=== PATIENT | female | born 1940 | race Two or more races ===

== ENCOUNTER 2025-02-19 16:41 | Inpatient (IN) | payer OTHER, MEDICAID, MEDICARE, SELFPAY ==
[2025-02-19] VITALS (11 sets, daily range): BP systolic 100–145; BP diastolic 54–96; PULSE 74–138; RESP 18–21; TEMP 36.9; O2SAT 95–100; BMI 22.9
--- NOTE | 2025-02-19 17:29 | PD.EDRME ---
Rapid Medical Screening Exam RME Arrival date/time: 02/19/25 16:41 84-year-old female presents emergency room with family member who reports the patient has ulcerations on her buttocks and complaining of pain Chief Complaint: General Adult/Misc Complain
--- NOTE | 2025-02-19 17:49 | EKG_ITS ---
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
--- NOTE | 2025-02-19 18:06 | XR_ITS ---
Examination: AP chest single view Technique one AP portable semiupright chest single view Exam date and time: February 19, 2025 1803 hours Comparison December 19, 2023 Indications: Weakness loss of breath this week. Findings: Significant pneumonia left base Mild enlargement cardiac contour Mild vascular congestion Prominent osteopenia Impression: Significant pneumonia left base
[2025-02-19 18:18] LABS: Basophils % (Auto) 0 % (0-2.5); Eosinophils # (Auto) 0.1 Thou/mm3 (0.0-0.5); Eosinophils % (Auto) 1 % (0-10); Hematocrit 40.9 % (36.0-46.0); Hemoglobin 13.9 g/dL (12.0-16.0); Immature Granulocytes % (Auto) 1 % (0-0); Immature Granulocytes Auto 0.09 Thou/mm3 (0.00-0.00); Lymphocytes # (Auto) 2.4 Thou/mm3 (1.0-4.8); Lymphocytes % (Auto) 18 % (10-50); Mean Corpuscular Volume 88 fL (80-100); Monocytes # (Auto) 0.7 Thou/mm3 (0.0-0.8); Monocytes % (Auto) 5 % (0-12); Neutrophils # (Auto) 10.2 Thou/mm3 (1.8-7.7); Neutrophils % (Auto) 76 % (37-80); Nucleated Red Blood Cell % 0 /100 WBC (0); Platelet Count 260 Thou/mm3 (140-440); RDW Standard Deviation 56.3 fL (36.4-46.3); Red Blood Count 4.63 Miln/mm3 (4.00-5.20); White Blood Count 13.4 Thou/mm3 (3.6-11.0)
[2025-02-19 18:35] LABS: Sed Rate (ESR) 20 mm/hr (0-30)
[2025-02-19 18:54] LABS: D-Dimer 3200 ng/mL (<600)
[2025-02-19 18:55] LABS: Lactate (Lactic Acid) 2.4 mMol/L (0.4-2.0)
[2025-02-19 18:59] LABS: Base Excess -2 (-3-3); HCO3 23 mEq/L (20-26); Inspired Oxygen, FIO2 21 %; O2 Saturation 95 % (91-98); PCO2 36 mmHg (32.0-48.0); PO2 72 mmHg (83-108); pH, Arterial 7.41 (7.35-7.45)
[2025-02-19 19:01] LABS: Allen Test Performed/OK; Puncture Site Right Radial
--- NOTE | 2025-02-19 19:03 | XR_ITS ---
Examination: CT abdomen with intravenous contrast CT pelvis with intravenous contrast 2-D coronal reconstructions 2-D sagittal reconstructions Date and time of exam:February 19, 2025 2126 hrs. Comparison December 12, 2019 Indications: Nonhealing sacral ulcer. This week CTDI: vol (mGy) 9.63 DLP: (mGycm) 177 Technique: Multiple axial sections of the abdomen and pelvis have been obtained. 64 slice high-resolution scanner used. 3 mm axial sections have been obtained, post intravenous injection 100 cc [id number] 2-D sagittal coronal reconstructions Low dose protocols, automated exposure control adjustment MA KV according to patient size Findings: Bibasilar pneumonia with bilateral moderate bilateral pleural effusions Moderate hepatomegaly Absent gallbladder Intrahepatic biliary tract dilatation Spleen is not enlarged Common bile duct 14 mm Aorta normal size No hydronephrosis No bowel obstruction Urinary bladder intact Right hip arthroplasty generates artifacts Soft tissue defect and infection posterior to the lower sacrum and coccyx 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
--- NOTE | 2025-02-19 19:03 | PD.EDSKIN ---
ED Skin Abcess FB-RME/HPI General Chief complaint: General Adult/Misc Complain Stated complaint: NOT EATING TODAY, HIVES [id number] ON BUTT Time Seen by Provider: 02/19/25 18:04 Arrival date/time: 02/19/25 16:41 RME / HPI RME / HPI narrative: 02/19/25 16:41 84-year-old female presents emergency room with family member who reports the patient has ulcerations on her buttocks and complaining of pain This section includes all my notes and documentations, including HPI, PE, and ED course. Joseph Minaya MD HPI: 84 y/o female with Hx of Seizures, Atrial Fibrillation, Hypertension, Gall Bladder Disease, Arthritis, Hypothyroidism, Anemia, Anxiety BIB daughter presents to ED c/o open wounds to the buttocks x 2.5 weeks. Daughter also reports no appetite since this morning. No other complaints. ROS: All negative except as documented in HPI. Physical Exam: General: Alert and oriented. In mild respiratory distress. Hypoxia noted. Eyes: Conjunctivae and lids clear. EOMI. PERRL. ENT: No nasal congestion. Neck: Supple. No carotid bruit. No JVD. Heart: Irregularly irregular (143 bpm). Lungs: Mild respiratory distress. Moderately decreased air movement with rales. Abdomen: Soft with equivocal epigastric tenderness. Normal bowel sounds. No distension. No rebound or guarding. Back: No CVA tenderness. Legs: No clubbing, cyanosis, edema. Skin: Warm and dry. Large sacral decubitus ulcers, varying in size and shape and stage. Neuro: Alert and oriented X 3. Cranial Nerves II-XII grossly intact. No peripheral motor deficits. I reviewed all diagnostic test results. My interpretation of the EKG is atrial fibrillation with RVR (143 bpm). My interpretation of the chest x-ray is significant pneumonia left base. My review of the chest angio CT report is negative for pulmonary artery emboli. Bibasilar pneumonia with moderate bilateral perihilar disease. My review of the abdomen/pelvis CT w/ contrast report is common bile duct enlarged 14 mm, recommend hepatobiliary sonography follow-up, soft tissue defect posterior to the lower sacrum and coccyx with cortical bone, destruction involving the coccygeal segments. My review of the head/brain CT w/o contrast report is NAD. My review of the abdomen US is gallstones with signs of cholecystitis. Blood tests remarkable for WBC 13.4, D-Dimer 3200. Covid/Influenza negative. At this point, diagnoses include Atrial fibrillation with RVR, Pneumonia, Bilateral pleural effusion, Acute respiratory failure with hypoxia, Sacral decubitus ulcer, UTI (urinary tract infection), Cholecystitis Treatment here included IVF, Cardizem bolus and drip, Rocephin, and Vancomycin. I discussed the case with our surgeon and our hospitalist. About the presentation and exam and diagnostics and treatments here. And need of further care in the hospital. Will accept the patient. Joseph Minaya MD Related Data Home Medications ?Medication ?Instructions ?Recorded ?Confirmed levothyroxine 100 mcg tablet 100 mcg PO QDAY #0 tabs 04/20/16 02/21/25 loratadine 10 mg tablet 10 mg PO QDAY 11/21/19 11/18/23 pantoprazole 40 mg tablet,delayed 40 mg PO QDAY 11/21/19 12/13/22 release budesonide-formoterol HFA 160 2 inh inhalation BID 12/13/22 12/13/22 mcg-4.5 mcg/actuation aerosol inhaler (Symbicort) buspirone 7.5 mg tablet 7.5 mg PO TID 12/13/22 02/21/25 cholecalciferol (vitamin D3) 125 125 mcg PO QDAY 12/13/22 12/13/22 mcg (5,000 unit) tablet (Vitamin D3) doxepin 25 mg capsule 25 mg PO HS 12/13/22 12/13/22 Held on 02/24/25. Instructions: Please hold until you follow your primary care provider hydrocodone 10 mg-acetaminophen 1 tab PO QID PRN Pain 12/13/22 11/18/23 325 mg tablet pravastatin 40 mg tablet 40 mg PO HS 12/13/22 02/22/25 sertraline 50 mg tablet 150 mg PO TID 12/13/22 02/22/25 apixaban 2.5 mg tablet (Eliquis) 2.5 mg PO BID 11/18/23 02/21/25 doxepin 10 mg capsule 10 mg PO HS 02/21/25 02/21/25 Held on 02/24/25. Instructions: Please hold until you follow your primary care provider ergocalciferol (vitamin D2) 1,250 1,250 mcg PO .once a week 02/21/25 02/21/25 mcg (50,000 unit) capsule trazodone 50 mg tablet 50 mg PO HS PRN sleep 02/21/25 02/22/25 calcium 600 mg (as 1 tab PO BID 02/22/25 02/22/25 carbonate)-vitamin D3 10 mcg (400 unit) tablet raloxifene 60 mg tablet 60 mg PO DAILY 02/22/25 02/22/25 Previous Rx's ?Medication ?Instructions ?Recorded ceftriaxone 2 gram solution for 2 g IV QDAY osteomyelitis 38 days 02/24/25 injection #10 ea doxycycline hyclate 100 mg capsule 100 mg PO BID osteomyelitis 39 02/24/25 days #78 caps mirtazapine 15 mg tablet 15 mg PO QDAY appetite stimulator 02/24/25 30 days #30 tabs Allergies Allergy/AdvReac Type Severity Reaction Status Date / Time Penicillins Allergy Severe Rash Verified 02/19/25 16:47 sulfamethoxazole Allergy Severe Rash Verified 02/19/25 16:47 trimethoprim Allergy Severe Rash Verified 02/19/25 16:47 carisoprodol AdvReac Severe Dizziness Verified 02/19/25 16:47 Review of Systems Review of Systems Systems Reviewed: All systems reviewed, normal except as documented Narrative Review of Systems: Refer to HPI above. Past Medical History Past Medical History NEUROLOGIC: Positive Seizures (long time ago 40 yrs ago one time- after posterior neck sx) CARDIAC: Positive Atrial Fibrillation and Hypertension GASTROINTESTINAL: Positive Gall Bladder Disease MUSCULOSKELETAL: Positive Arthritis ENDOCRINE: Positive Hypothyroidism HEMATOLOGIC: Positive Anemia PSYCHO/SOCIAL: Positive Anxiety OTHER HISTORY: Positive Anesthesia Reactions (one time they couldnt wake me up) Surgical History SURGICAL: Positive Angiogram, Abdominal Surgery and Hysterectomy Social History SMOKING STATUS: Never smoker SECOND HAND EXPOSURE: No SUBSTANCE USE: does not use ED Exam Narrative Physical exam: Refer to HPI above. Course Quality Measures none Orders Category Date Time Status Bedside COVID-19 Antigen Test NOW Care 02/19/25 18:05 Active Bedside Influenza A&B Antigen Test NOW Care 02/19/25 18:05 Completed COVID-19 Screening Questionnaire NOW Care 02/20/25 01:[address] Screening NOW Care 02/19/25 19:03 Active Decision to Admit X1 Care 02/20/25 01:30 Completed EKG (ED ONLY) *Do not use* NOW Care 02/19/25 17:49 Completed Saline [Insert IV] NOW Care 02/19/25 18:05 Active Straight [In and Out Catheter] X1 Care 02/19/25 18:05 Completed Consult to General Surgery Stat Cons 02/20/25 02:[address] abdomen pelvis w con Stat Exams 02/19/25 19:[address] angio chest Stat Exams 02/19/25 19:[address] head/brain wo con Stat Exams 02/19/25 19:04 Completed EKG (ED Only) Stat Exams 02/19/25 17:49 Draft US abdomen limited Stat Exams 02/19/25 22:06 Completed XR chest 1V portable Stat Exams 02/19/25 18:06 Completed ABG [Arterial Blood Gas] Stat Lab 02/19/25 18:52 Completed BNP [B-Type Natriuretic Peptide] Stat Lab 02/19/25 18:42 Completed Blood Culture (Lab) Stat Lab 02/19/25 17:50 Results CBC Stat Lab 02/19/25 17:50 Completed CRP [C-Reactive Protein] Stat Lab 02/19/25 18:42 Completed Comprehensive Metabolic Panel Stat Lab 02/19/25 18:42 Completed D-Dimer Stat Lab 02/19/25 17:41 Completed ESR [Sed Rate (ESR)] Stat Lab 02/19/25 17:50 Completed Free T4 (Free Thyroxine) Stat Lab 02/19/25 18:42 Completed Lactate (Lactic Acid) Stat Lab 02/19/25 18:42 Completed Lactic Acid, 3 HR Stat Lab 02/19/25 22:33 Completed Magnesium Stat Lab 02/19/25 18:42 Completed Procalcitonin Stat Lab 02/19/25 18:42 Completed Thyroid Stimulating Hormone Stat Lab 02/19/25 18:42 Completed Troponin I Stat Lab 02/19/25 18:42 Completed Urinalysis Stat Lab 02/20/25 01:00 Completed Urine Culture Stat Lab 02/20/25 01:00 Completed Azithromycin Inj [Zithromax Inj] 500 mg Med 02/19/25 20:39 Discontinued Sodium Chloride 0.9% 250 ml [Ns] 250 ml IV X1 Dextrose 5%-Water [D5w] 100 ml Med 02/19/25 18:05 Discontinued Diltiazem Inj [Cardizem Inj] 125 mg IV 5 mg/hr Diltiazem Inj [Cardizem Inj] Med 02/19/25 18:04 Discontinued 20 mg IV X1 ONE Magnesium Sulfate 2 GM Ivpb [Magnesium Sulfate Ivpb] Med 02/19/25 20:38 Discontinued 2 gm in 50 ml IV X1 Sodium Chloride 0.9% 1000 ml [Ns] 1,000 ml Med 02/19/25 19:05 Discontinued IV 999 mls/hr Vancomycin Inj 1,000 mg Med 02/19/25 19:02 Discontinued Sodium Chloride 0.9% 500 ml [Ns] 500 ml IV X1 cefTRIAXone [Rocephin] 1,000 mg Med 02/19/25 19:02 Discontinued SODIUM CHLORIDE 0.9% (Popper) [Ns 0.9% (P)] 50 ml IV X1 Vital Signs Vital signs: Vital Signs Temperature 98.4 F 02/19/25 17:44 Pulse Rate 138 H 02/19/25 17:44 Respiratory Rate 20 02/19/25 17:44 Blood Pressure 145/96 H 02/19/25 17:44 Pulse Oximetry (%) 95 02/19/25 17:44 Oxygen Delivery Method Room Air 02/19/25 17:44 Skin / Abscess / Foreign Body MDM Narrative MDM Narrative:: Scribe Attestation: Maddi Rodriguez am scribing for and in the presence of Dr. Minaya. Provider Notation: Although this document has been carefully reviewed, there may still be some phonetic and other typographical errors. These errors are purely grammatical due to imperfections in the software program and should not be construed in any way to compromise the substance of the patient's medical care during this visit. 84 y/o female with Hx of Seizures, Atrial Fibrillation, Hypertension, Gall Bladder Disease, Arthritis, Hypothyroidism, Anemia, Anxiety, Anesthesia Reactions BIB daughter presents to ED c/o skin irritation to the buttocks x 2.5 weeks. Daughter reports she noticed patient itching her buttocks this morning and noticed the irritation was much worse. Patient began taking Ammonium lactate for the irritation on 02/12/2025. Daughter also reports no appetite since this morning. Patient data External records reviewed:: [facility] previous records (Prior ED records reviewed. Patient was seen on 12/12/22 for CHF exacerbation.) Clinical information provided by:: family (Daughter) Social determinants that could affect healthcare access:: none Patient has the following chronic illnesses:: Seizures, Atrial Fibrillation, Hypertension, Gall Bladder Disease, Arthritis, Hypothyroidism, Anemia, Anxiety, Anesthesia Reactions How is presenting disease/condition affected by chronic disease/condition?: exacerbated by Evaluation data The following diagnostics were reviewed and interpreted by me:: lab results, radiology exam(s) and EKG tracing(s) Lab and/or radiology exams considered but not ordered:: None. Interpretation Summary: I reviewed all diagnostic test results. My interpretation of the EKG is atrial fibrillation with RVR (143 bpm). My interpretation of the chest x-ray is significant pneumonia left base. My review of the chest angio CT report is negative for pulmonary artery emboli. Bibasilar pneumonia with moderate bilateral perihilar disease. My review of the abdomen/pelvis CT w/ contrast report is common bile duct enlarged 14 mm, recommend hepatobiliary sonography follow-up, soft tissue defect posterior to the lower sacrum and coccyx with cortical bone, destruction involving the coccygeal segments. My review of the head/brain CT w/o contrast report is NAD. My review of the abdomen US is gallstones with signs of cholecystitis. Blood tests remarkable for WBC 13.4, D-Dimer 3200. Covid/Influenza negative. Medications / Prescriptions Medications or Prescriptions considered but not ordered:: None Medication administrations:: Medication Administration History Acetaminophen (Acetaminophen 325 Mg Tablet) 650 mg PO Q6H PRN PRN Reason: Fever >100.3 or pain 1-3 Stop: 03/22/25 02:05 Apixaban (Apixaban 2.5 Mg Tablet) 2.5 mg PO BID ON LICENSE OF [facility] Stop: 03/22/25 08:59 Last Admin: 02/23/25 20:45 Dose: 2.5 mg Documented By: Admin: 02/23/25 08:56 Dose: 2.5 mg Documented By: Admin: 02/22/25 21:03 Dose: 2.5 mg Documented By: Admin: 02/22/25 10:36 Dose: 2.5 mg Documented By: JRR Comments: all po meds given late pt.was @ MRI Admin: 02/21/25 21:51 Dose: 2.5 mg Documented By: Admin: 02/20/25 09:14 Dose: 2.5 mg Documented By: NAEEM Ascorbic Acid (Ascorbic Acid 250 Mg Tablet) 500 mg PO BID ALBINA Stop: 03/08/25 08:59 Last Admin: 02/24/25 09:12 Dose: Not Given Documented By: BRE Non-Admin Reason: NPO Admin: 02/23/25 20:46 Dose: 500 mg Documented By: Admin: 02/23/25 08:56 Dose: 500 mg Documented By: HEYDI Atorvastatin Calcium (Atorvastatin Calcium 20 Mg Tablet) 40 mg PO HS ALBINA Stop: 03/22/25 20:59 Last Admin: 02/23/25 20:45 Dose: 40 mg Documented By: Admin: 02/22/25 21:02 Dose: 40 mg Documented By: Admin: 02/21/25 21:51 Dose: 40 mg Documented By: Admin: 02/20/25 21:58 Dose: 40 mg Documented By: GIOVANNY Buspirone HCl (Buspirone Hcl 5 Mg Tablet) 7.5 mg PO TID ON LICENSE OF [facility] Stop: 03/22/25 05:59 Last Admin: 02/24/25 14:01 Dose: Not Given Documented By: BRE Non-Admin Reason: Not In Room Admin: 02/24/25 05:48 Dose: 7.5 mg Documented By: Admin: 02/23/25 21:20 Dose: 7.5 mg Documented By: Admin: 02/23/25 14:01 Dose: 7.5 mg Documented By: Admin: 02/23/25 05:15 Dose: 7.5 mg Documented By: Admin: 02/22/25 21:02 Dose: 7.5 mg Documented By: Admin: 02/22/25 15:44 Dose: Not Given Documented By: JRR Non-Admin Reason: Patient Asleep Admin: 02/22/25 05:09 Dose: 7.5 mg Documented By: Admin: 02/21/25 21:51 Dose: 7.5 mg Documented By: Admin: 02/21/25 14:01 Dose: 7.5 mg Documented By: Admin: 02/21/25 05:23 Dose: 7.5 mg Documented By: Admin: 02/20/25 21:58 Dose: 7.5 mg Documented By: Admin: 02/20/25 17:08 Dose: 7.5 mg Documented By: Admin: 02/20/25 09:15 Dose: 7.5 mg Documented By: NAEEM Collagenase (Collagenase Oint 30 Gm Tube) 0 gm TOP QDAY ALBINA Stop: 03/23/25 10:44 Last Admin: 02/24/25 08:55 Dose: 1 applicatio Documented By: Admin: 02/23/25 10:00 Dose: 1 applicatio Documented By: Admin: 02/22/25 10:39 Dose: 1 applicatio Documented By: Admin: 02/21/25 11:15 Dose: 30 gm Documented By: RON Digoxin (Digoxin 0.125 Mg Tablet) 0.125 mg PO QDAY ALBINA Stop: 03/25/25 08:59 Doxycycline Hyclate (Doxycycline 100 Mg Tablet) 100 mg PO BID ALBINA Stop: 03/03/25 20:59 Ceftriaxone Sodium/Dextrose (Rocephin/D5w 2gm) 2 gm in 50 mls @ 100 mls/hr IV HS ALBINA Stop: 02/27/25 20:59 Last Infusion: 02/24/25 13:50 Dose: Infused Documented By: Admin: 02/23/25 20:46 Dose: 100 mls/hr Documented By: Infusion: 02/22/25 21:33 Dose: Infused Documented By: Admin: 02/22/25 21:03 Dose: 100 mls/hr Documented By: Infusion: 02/21/25 22:22 Dose: Infused Documented By: Admin: 02/21/25 21:52 Dose: 100 mls/hr Documented By: GIOVANNY Levothyroxine Sodium (Levothyroxine Sodium 100 Mcg Tablet) 100 mcg PO ACBR ALBINA Stop: 03/22/25 05:59 Last Admin: 02/24/25 05:53 Dose: 100 mcg Documented By: Admin: 02/23/25 05:15 Dose: 100 mcg Documented By: Admin: 02/22/25 05:09 Dose: 100 mcg Documented By: Admin: 02/21/25 05:23 Dose: 100 mcg Documented By: Admin: 02/20/25 09:16 Dose: 100 mcg Documented By: NAEEM Magnesium Hydroxide (Milk Of Magnesia Susp 30 Ml Udc) 30 ml PO QDAY PRN; Protocol PRN Reason: CONSTIPATION Stop: 03/22/25 02:05 Melatonin (Melatonin 3 Mg Tablet) 3 mg PO HS PRN PRN Reason: anxiety Stop: 03/22/25 20:59 Last Admin: 02/23/25 21:20 Dose: 3 mg Documented By: Admin: 02/22/25 21:04 Dose: 3 mg Documented By: Admin: 02/21/25 21:51 Dose: 3 mg Documented By: GIOVANNY Mirtazapine (Mirtazapine 15 Mg Tablet) 15 mg PO QDAY ALBINA Stop: 03/26/25 08:59 Last Admin: 02/24/25 09:12 Dose: Not Given Documented By: BRE Non-Admin Reason: NPO Ondansetron HCl (Ondansetron Inj 2 Mg/Ml Inj 2 Ml) 4 mg IV Q6H PRN; Protocol PRN Reason: NAUSEA OR VOMITING Stop: 03/22/25 02:05 Oxycodone/Acetaminophen (Oxycodone/Apap 5/325 Tablet) 1 tab PO Q6H PRN PRN Reason: PAIN SCALE 4-6 (Moderate Stop: 02/25/25 02:05 Sennosides (Senna Tablet) 1 tab PO QDAY ON LICENSE OF [facility]; Protocol Stop: 03/24/25 08:59 Last Admin: 02/24/25 09:12 Dose: Not Given Documented By: BRE Non-Admin Reason: NPO Admin: 02/23/25 08:56 Dose: 1 tab Documented By: Admin: 02/22/25 10:37 Dose: 1 tab Documented By: JENNIFER Sertraline HCl (Sertraline Hcl 25 Mg Tablet) 150 mg PO QDAY ALBINA Stop: 03/22/25 08:59 Last Admin: 02/24/25 09:12 Dose: Not Given Documented By: BRE Non-Admin Reason: NPO Admin: 02/23/25 08:55 Dose: 150 mg Documented By: Admin: 02/22/25 10:37 Dose: 150 mg Documented By: Admin: 02/21/25 09:01 Dose: 150 mg Documented By: Admin: 02/20/25 09:14 Dose: 150 mg Documented By: NAEEM Zinc Sulfate (Zinc Sulfate 220 Mg Capsule) 220 mg PO QDAY ALBINA Stop: 03/08/25 08:59 Last Admin: 02/24/25 09:11 Dose: Not Given Documented By: BRE Non-Admin Reason: NPO Admin: 02/23/25 08:56 Dose: 220 mg Documented By: HEYDI Discontinued Medications Digoxin (Digoxin 0.125 Mg Tablet) 0.25 mg PO X1 ONE Stop: 02/21/25 12:01 Last Admin: 02/21/25 14:01 Dose: 0.25 mg Documented By: RON Digoxin (Digoxin 0.125 Mg Tablet) 0.25 mg PO Q6HR ON LICENSE OF [facility] Stop: 02/22/25 06:01 Last Admin: 02/22/25 10:38 Dose: 0.25 mg Documented By: Admin: 02/22/25 03:45 Dose: 0.25 mg Documented By: GIOVANNY Comments: 1st dose given at 2150, spoke with noc pharmacist Augustus, said to give 2nd in 6 hours Admin: 02/21/25 21:50 Dose: 0.25 mg Documented By: GIOVANNY Digoxin (Digoxin 0.125 Mg Tablet) 0.25 mg PO QDAY ON LICENSE OF [facility] Stop: 02/24/25 09:01 Diltiazem HCl (Diltiazem Inj 5 Mg/Ml Vial 5 Ml) 20 mg IV X1 ONE Stop: 02/19/25 18:05 Last Admin: 02/19/25 19:43 Dose: 20 mg Documented By: MATTIE Diltiazem HCl (Diltiazem 30 Mg Tablet) 60 mg PO TID ON LICENSE OF [facility] Stop: 03/22/25 15:14 Last Admin: 02/20/25 17:10 Dose: Not Given Documented By: LYNN Non-Admin Reason: Cancelled by Provider Diltiazem HCl (Diltiazem 30 Mg Tablet) 30 mg PO TID ON LICENSE OF [facility] Stop: 03/22/25 15:14 Last Admin: 02/21/25 05:29 Dose: Not Given Documented By: GIOVANNY Non-Admin Reason: Vital Signs Comments: Held by Admin: 02/20/25 20:59 Dose: Not Given Documented By: SS Non-Admin Reason: Vital Signs Comments: aware Heparin Sodium (Beef Lung) (Heparin Sod Lock Syr 100 Unit/Ml) Confirm Administered Dose 500 unit .ROUTE .STK-MED ONE Stop: 02/24/25 13:39 Last Admin: 02/24/25 14:25 Dose: Not Given Documented By: KAILEY Non-Admin Reason: Duplicate Medication on eMAR Heparin Sodium (Beef Lung) (Heparin Sod Lock Syr 100 Unit/Ml) 500 unit STFIELD X1 ONE Stop: 02/24/25 14:11 Last Admin: 02/24/25 14:12 Dose: 500 unit Documented By: KAILEY Diltiazem HCl 125 mg/ Dextrose 125 mls @ 5 mls/hr IV .Q24H ALBINA Stop: 03/21/25 18:04 Last Infusion: 02/20/25 15:24 Dose: Infused Documented By: Admin: 02/19/25 19:55 Dose: 5 mg/hr, 5 mls/hr Documented By: MATTIE Ceftriaxone Sodium 1,000 mg/ (Sodium Chloride) 50 mls @ 100 mls/hr IV X1 ONE Stop: 02/19/25 19:31 Last Infusion: 02/19/25 22:50 Dose: Infused Documented By: Admin: 02/19/25 22:20 Dose: 100 mls/hr Documented By: MATTIE Vancomycin HCl 1,000 mg/ (Sodium Chloride) 500 mls @ 150 mls/hr IV X1 ONE Stop: 02/19/25 22:21 Last Infusion: 02/19/25 23:30 Dose: Infused Documented By: Admin: 02/19/25 19:59 Dose: 150 mls/hr Documented By: MATTIE Sodium Chloride (Ns) 1,000 mls @ 999 mls/hr IV .Q1H1M ONE Stop: 02/19/25 20:05 Last Infusion: 02/19/25 23:00 Dose: Infused Documented By: Admin: 02/19/25 20:03 Dose: 999 mls/hr Documented By: MATTIE Magnesium Sulfate (Magnesium Sulfate Ivpb) 2 gm in 50 mls @ 25 mls/hr IV X1 ONE Stop: 02/19/25 22:37 Last Infusion: 02/20/25 00:30 Dose: Infused Documented By: Admin: 02/19/25 22:30 Dose: 25 mls/hr Documented By: MATTIE Azithromycin 500 mg/ Sodium (Chloride) 250 mls @ 250 mls/hr IV X1 ONE Stop: 02/19/25 21:38 Last Infusion: 02/20/25 00:00 Dose: Infused Documented By: Admin: 02/19/25 23:00 Dose: 250 mls/hr Documented By: MATTIE Ceftriaxone Sodium 2 gm/ (Sodium Chloride) 50 mls @ 100 mls/hr IV QDAY ALBINA Stop: 02/27/25 02:13 Last Admin: 02/20/25 03:56 Dose: Not Given Documented By: CVL Non-Admin Reason: Cancelled by Provider Ceftriaxone Sodium/Dextrose (Rocephin/D5w 1gm Iv Premix) 1 gm in 50 mls @ 100 mls/hr IV X1 ONE Stop: 02/20/25 02:45 Last Infusion: 02/20/25 03:56 Dose: Infused Documented By: Admin: 02/20/25 03:23 Dose: 100 mls/hr Documented By: MATTIE Ceftriaxone Sodium 2 gm/ (Sodium Chloride) 50 mls @ 100 mls/hr IV HS ALBINA Stop: 02/27/25 20:59 Last Admin: 02/20/25 20:45 Dose: 100 mls/hr Documented By: GIOVANNY Magnesium Sulfate (Magnesium Sulfate Ivpb) 4 gm in 50 mls @ 12.5 mls/hr IV X1 ONE Stop: 02/20/25 06:29 Last Infusion: 02/20/25 07:58 Dose: Infused Documented By: Admin: 02/20/25 03:00 Dose: 12.5 mls/hr Documented By: MATTIE Vancomycin/Sodium Chloride (Vancomycin/Ns 1 Gm Ivpb) 200 mls @ 120 mls/hr IV X1 ONE Stop: 02/20/25 11:39 Last Infusion: 02/20/25 11:10 Dose: Infused Documented By: Admin: 02/20/25 09:26 Dose: 120 mls/hr Documented By: NAEEM Vancomycin/Sodium Chloride (Vancomycin/Ns 1 Gm Ivpb) 200 mls @ 120 mls/hr IV X1 ONE Stop: 02/20/25 23:39 Last Admin: 02/20/25 22:50 Dose: 120 mls/hr Documented By: GIOVANNY Vancomycin/Sodium Chloride (Vancomycin/Ns 1 Gm Ivpb) 200 mls @ 120 mls/hr IV Q12H ALBINA; Protocol Stop: 02/28/25 09:59 Last Admin: 02/21/25 22:56 Dose: Not Given Documented By: GIOVANNY Non-Admin Reason: held per protocol, Vanco trough 25.0 Admin: 02/21/25 09:01 Dose: 120 mls/hr Documented By: RON Levothyroxine Sodium (Levothyroxine Sodium 100 Mcg Tablet) 100 mcg PO QDAY ALBINA Stop: 03/22/25 08:59 Lidocaine HCl (Lidocaine Inj Pf 1% 30 Ml Vial) Confirm Administered Dose [address] .[facility] ONE Stop: 02/21/25 11:10 Last Admin: 02/22/25 23:57 Dose: Not Given Documented By: WO Non-Admin Reason: Duplicate Medication on eMAR Lidocaine HCl (Lidocaine Inj Pf 1% 30 Ml Vial) Confirm Administered Dose 30 ml .ROUTE .STK-MED ONE Stop: 02/24/25 13:39 Last Admin: 02/24/25 14:25 Dose: Not Given Documented By: KAILEY Non-Admin Reason: Duplicate Medication on eMAR Lidocaine HCl (Lidocaine Inj Pf 1% 30 Ml Vial) 1 ml EPID X1 ONE Stop: 02/24/25 14:11 Last Admin: 02/24/25 14:12 Dose: 1 ml Documented By: KAILEY Comments: given by Joseph Miles Lidocaine HCl (Lidocaine Inj Pf 1% 30 Ml Vial) 1 ml INFL X1 ONE Stop: 02/24/25 14:11 Last Admin: 02/24/25 16:54 Dose: Not Given Documented By: BRE Non-Admin Reason: Discontinued Melatonin (Melatonin 3 Mg Tablet) 3 mg PO HS ALBINA Stop: 03/22/25 20:59 Non-Formulary Medication (Sertraline) 150 mg PO TID ALBINA Stop: 03/22/25 05:59 Pharmacy Consult (Vancomycin Pharmacy To Dose 1 Each Each) 1 each IV QDAY PRN PRN Reason: CONSULT Stop: 03/22/25 08:59 Potassium Chloride (Potassium Chloride 20 Meq Tabcr) 40 meq PO X1 ONE Stop: 02/20/25 02:31 Last Admin: 02/20/25 03:01 Dose: 40 meq Documented By: MATTIE Potassium Chloride (Potassium Chloride 10% 20 Meq/15 Ml Udc) 40 meq PO X1 ONE Stop: 02/22/25 09:52 Last Admin: 02/22/25 10:49 Dose: 40 meq Documented By: JENNIFER Pravastatin Sodium (Pravastatin Sodium 10 Mg Tablet) 40 mg PO HS ALBINA Stop: 03/22/25 20:59 Rivaroxaban (Rivaroxaban 10 Mg Tablet) 2.5 mg PO BID AL[place]INA Stop: 03/22/25 08:59 Sennosides (Senna Tablet) 1 tab PO QDAY PRN; Protocol PRN Reason: constipation Stop: 03/22/25 02:05 Sodium Chloride (Sodium Chloride Rt 10% 15 Ml Nebu) 5 ml INH X1 ONE Stop: 02/20/25 17:01 Last Admin: 02/23/25 00:01 Dose: Not Given Documented By: WO Non-Admin Reason: Medication missed by prior shift Treatment here included IVF, Cardizem bolus and drip, Rocephin, and Vancomycin. Consultations Consultation(s) initiated? (list below): Yes Consultation #1 (Physician, Specialty, Details): I discussed the case with our surgeon and our hospitalist. About the presentation and exam and diagnostics and treatments here. And need of further care in the hospital. Will accept the patient. Diagnosis Skin/Abscess Differential Diagnosis: abscess of skin or subcutaneous tissue, viral exanthem, dermatophytosis, urticaria, herpes zoster, allergic reaction to drug, cellulitis, eczema, insect bites, impetigo and contact dermatitis Most likely diagnosis given after review of the tests above:: Atrial fibrillation with RVR, Pneumonia, Bilateral pleural effusion, Acute respiratory failure with hypoxia, Sacral decubitus ulcer, UTI (urinary tract infection), Cholecystitis Admission Indicated Admission indicated?: indicated Explain why admission is indicated or not indicated:: I discussed the case with our surgeon and our hospitalist. About the presentation and exam and diagnostics and treatments here. And need of further care in the hospital. Will accept the patient. Admission Request Was there a request for admission?: Yes Admission Attestation Admission request attestation: Discussed case with Hospitalist service regarding admission. Discussed patients ED course, exam findings, labs, and radiology results. The Hospitalist [agrees] to accept the patient for admission. Disposition Plan Disposition Plan: Admit Discharge Plan Plan Patient Disposition: Admit Acute Care w/in Hospital Patient condition on transfer: Stable Problem List Clinical Impression: Atrial fibrillation with RVR, Pneumonia, Bilateral pleural effusion, Acute respiratory failure with hypoxia, Sacral decubitus ulcer, UTI (urinary tract infection), Cholecystitis
--- NOTE | 2025-02-19 19:04 | XR_ITS ---
Examination: CT brain head without contrast. 2-D sagittal coronal reconstructions Date and time of exam:February 19, 2025 2118 hrs. Indications: Altered mental status today CTDI: vol (mGy):63 DLP: (mGycm):1252 Technique: Multiple CT axial sections of the brain have been obtained, 5 mm slice thickness. Contrast has not been administered. 2-D sagittal, coronal reconstructions have been obtained Low dose protocols were performed. One or more of the following dose reduction techniques were used; automated exposure control, adjustment of the mA and/or KV according to patient size, use of iterative reconstruction technique. Findings: No significant ventricular enlargement. Intra-axial or extra-axial hemorrhage density is not seen. No mass effect or midline shift Basal cisterns are not remarkable. Fourth ventricle is midline. Cranial vault intact. Impression: Negative for acute hemorrhage, mass effect or midline shift Advise clinical correlation follow-up accordingly
--- NOTE | 2025-02-19 19:04 | XR_ITS ---
Examination: CTA chest with intravenous contrast 2-D reconstructions 3-D reconstructions, vascular Date and time of exam: February 19, 2025 2121 hrs. Indications: Onset chest pain shortness of breath today CTDI: vol (mGy) 9.73 DLP: (mGycm) 482 Technique: Multiple axial sections of the thorax have been obtained. 3 mm slice thickness, from below the hemidiaphragms to above the apices of the lungs. Mediastinal and lung density settings have been obtained. 2-D sagittal and coronal reconstructions. 3-D angiographic renderings, 3-D volume renderings, 3D post processing, vascular maximum intensity projections obtained. Contrast administered is 100 cc [id number]. Intravenous Low dose protocols were performed. One or more of the following dose reduction techniques were used; automated exposure control, adjustment of the mA and/or KV according to patient size, use of iterative reconstruction technique. Findings: No thoracic aortic aneurysm dilatation or dissection No pulmonary artery emboli Moderate enlargement left atrium mild enlargement left ventricle Pneumonia at the lung bases with moderate pleural effusions Kyphosis dorsal spine, severe osteopenia with chronic wedging thoracic and lumbar vertebral bodies Impression: Negative for pulmonary artery emboli Bibasilar pneumonia with moderate bilateral perihilar disease
[2025-02-19 19:14] LABS: B-Type Natriuretic Peptide 254 pg/mL (0-100)
[2025-02-19 19:23] LABS: Alanine Aminotransferase 54 U/L (10-49); Albumin/Globulin Ratio 0.9 (1.2-2.2); Alkaline Phosphatase 78 U/L (46-116); Anion Gap 10 (7-16); Aspartate Amino Transferase 121 U/L (0-34); BUN/Creatinine Ratio 18 Ratio (12-20); Bilirubin,Total 1.8 mg/dL (0.3-1.2); Blood Urea Nitrogen 11 mg/dL (9-23); C-Reactive Protein 6.3 mg/dL (0.0-0.9); Calcium 8.3 mg/dL (8.3-10.6); Calcium (Corrected) 9.1 mg/dL (8.5-10.1); Carbon Dioxide 23.1 mMol/L (20.0-31.0); Chloride 102 mMol/L (98-107); Creatinine (Component) 0.6 mg/dL (0.6-1.3); Estimated Creatinine Clearance 49.9 mL/min (>60); Free T4 (Free Thyroxine) 1.22 ng/dL (0.89-1.76); Globulin 3.2 gm/dL (2.3-3.5); Glucose 115 mg/dL (74-106); Magnesium 1.5 mg/dL (1.6-2.6); Osmolality,Calculated 270 (275-295); Potassium 3.7 mMol/L (3.4-5.1); Procalcitonin 0.91 ng/ml (0.0-0.49); Sodium 135 mMol/L (136-145); Thyroid Stimulating Hormone 10.97 uIU/mL (0.55-4.78); Total Protein 6.2 gm/dL (5.7-8.2); Troponin I < 0.020 ng/mL (0.0-0.045); eGFR > 60 See Note
[2025-02-19] MEDS: DILTIAZEM INJ 5 MG/ML VIAL 5 ML 20 MG IV (19:43)
[2025-02-19] MEDS: DILTIAZEM INJ 125 MG in DEXTROSE 5%-WATER 100 ML IV (19:55)
[2025-02-19] MEDS: Vancomycin Inj 1,000 MG in SODIUM CHLORIDE 0.9% 500 ML 500 ML 150 MG IV (19:59)
[2025-02-19] MEDS: SODIUM CHLORIDE 0.9% 1000 ML 1,000 ML 999 ML IV (20:03)
--- NOTE | 2025-02-19 21:08 | PC.NURSE ---
2107, Daughter Teagan took patient's wheelchair home at this time.
[2025-02-19 21:49] LABS: Reflex Lactate? Y
--- NOTE | 2025-02-19 22:06 | XR_ITS ---
Examination: Abdomen sonogram, Limited Date and time of exam: February 19, 2025 1157 hrs. Indications: Dizziness 15 days with abdominal pain, history sacral ulcer Technique: Real-time lozada scale transabdominal sonographic images of the upper abdomen obtained. Findings: Multiple gallstones Gallbladder wall 0.43 cm Common bile duct 0.9 cm Liver 13.5 cm Normal hepatopedal portal venous flow Patent IVC Impression Impression: Cholelithiasis, thickened gallbladder wall Common bile duct enlarged 0.9 cm, consider MRCP follow-up to exclude cholecystitis and to exclude stones in the common bile duct
[2025-02-19] MEDS: cefTRIAXone 1,000 MG in SODIUM CHLORIDE 0.9% (Popper) 50 ML 100 MG IV (22:20)
[2025-02-19] MEDS: Magnesium Sulfate 2 GM Ivpb 2 GM/50 ML BAG IV (22:30)
[2025-02-19 22:42] LABS: Lactic Acid, 3 HR 1.7 mMol/L (0.4-2.0)
[2025-02-19] MEDS: AZITHROMYCIN INJ 500 MG in SODIUM CHLORIDE 0.9% 250 ML 250 ML 250 MG IV (23:00)
[2025-02-20] VITALS (21 sets, daily range): BP systolic 56–124; BP diastolic 32–86; PULSE 64–123; RESP 15–24; TEMP 36.3–37.1; O2SAT 62–100
[2025-02-20 01:13] LABS: Collection Type, Urine Clean Catch; RBC,Urine 0 /hpf (0-3); WBC,Urine 0 /hpf (0-5)
--- NOTE | 2025-02-20 01:24 | PRELIM_ITS ---
Gallbladder ultrasound. February 19, 2025 2357 hours Clinical history: Abdominal pain. Comparison: None. Findings: The evaluation of the left lobe of the liver is limited due to bowel gas. The liver measures 13.5 cm and demonstrates slightly heterogeneous echotexture. The main portal vein is patent and demonstrates hepatopetal flow. Multiple echogenic foci are seen in the gallbladder fossa, possibly representing calculi in a contracted gallbladder with apparent wall thickening. There is no pericholecystic fluid. The common duct is mildly dilated measuring 9 mm. The pancreas is not clearly visualized due to bowel gas. There is a small right pleural effusion. Impression: 1. Cholelithiasis with gallbladder wall thickening, cholecystitis cannot be excluded. Mildly dilated common bile duct. The possibility of distal biliary obstruction cannot be excluded. Recommend clinical correlation and further evaluation with MRCP. 2. Right pleural effusion. Report Electronically Signed By: Gloria Hardy 02/20/2025 1:24:11 AM [EST]
[2025-02-20 01:35] LABS: Bacteria,Urine 4+; Bilirubin,Urine Negative (Negative); Blood,Urine Negative (Negative); Clarity,Urine Turbid (Clear/Hazy); Color,Urine Yellow (Lt Yel-Yel); Glucose, Urine Negative (Negative); Hyaline Casts,Urine < 1 /hpf (0-1); Ketones,Urine Negative (Negative); Leukocyte Esterase,Urine Negative (Negative); Nitrite,Urine Negative (Negative); Protein,Urine Trace (Neg - Trace); Specific Gravity,Urine 1.024 (1.001-1.035); Squamous Epithelial Cell,Urine 1 /hpf (0-5)
--- NOTE | 2025-02-20 02:20 | PD.RESHP ---
Documentation for date of: 02/20/25 [facility] History of Present Illness Chief complaint: general weakness History of present illness: The patient is 84-year-old female with a previous medical history of hypertension, pulmonary hypertension, A-fib on Eliquis, arthritis, hypothyroidism, anxiety, hyponatremia/SIADH, anemia, hyperlipidemia who was brought in due to sacral wound, general weakness and loss of appetite. Her daughter at the bedside, reports that the patient became bedridden approximately a year ago, after she was admitted for left hip fracture and underwent fixation of the left hip fracture. Daughter reports that approximately a month ago patient started to become more weak, not oriented in time and 2 weeks ago she noticed ' bumps' on her sacral area. She used lotion with no effect. Few days ago the patient lost her appetite and started refusing food. She denies chest pain, palpitations, abdominal pain, nausea, no vomiting, diarrhea, bloody stools, falls, traumas. Daughter reports that she is following up with photographic enlarger operator Dr. Witt for the pulmonary hypertension. She denies history of lung disease. Daughter reports that during the admission in 2023 and rehabilitation in SNF patient was using oxygen, but oxygen was discontinued because patient did not need it anymore. In the ED: Blood pressure 98/47, heart rate 118, saturating 97-100% on 3 L nasal cannula. Labs showed WBC count 13.4, D-dimer 3200, ABG showed pH of 7.41, pCO2 36, pO2 72 L. Sodium 135, potassium 3.7, chloride 102, carbon dioxide 23.1, BUN 11, creatinine 0.6, glucose 115, osmolality 270, lactic acid 2.4 down trended to 1.7, magnesium 1.5, T. bili 1.8, AST 121, ALT 54, alkaline phosphatase 78, C-reactive protein 6.3, BNP 254, TSH 10.97, Pro-Peter 0.91. UA showed 4+ bacteria, cultures were sent. EKG showed A-fib with RVR. Abdomen pelvis showed CBD 14 mm, soft tissue defect posterior to the lower sacrum and coccyx with cortical bone destruction involving the coccygeal segments. Chest CTA was negative for PE, showed bibasilar pneumonia. Head CT was negative for acute pathology. Abdominal ultrasound showed cholelithiasis with gallbladder wall thickening, mild to dilated CBD, recommended MRCP. Dr. Nguyen, general surgeon was consulted, agreed to consult, low suspicion for acute choledocholithiasis. Social history: does not smoke, drink alcohol Surgical history: s/p left hip ORIF Medications: Trazodone, Eliquis 2.5 mg BID, sertraline, pravastatin, raloxifene, calcium, doxepin. Patient is going to be admitted for sepsis 2/2 soft tissue infection and CAP. Review of Systems Review of Systems Systems Reviewed: All systems reviewed, normal except as documented Past Medical History Past Medical History NEUROLOGIC: Positive Seizures (long time ago 40 yrs ago one time- after posterior neck sx) CARDIAC: Positive Atrial Fibrillation and Hypertension GASTROINTESTINAL: Positive Gall Bladder Disease MUSCULOSKELETAL: Positive Arthritis ENDOCRINE: Positive Hypothyroidism HEMATOLOGIC: Positive Anemia PSYCHO/SOCIAL: Positive Anxiety OTHER HISTORY: Positive Anesthesia Reactions (one time they couldnt wake me up) Surgical History SURGICAL: Positive Angiogram, Abdominal Surgery and Hysterectomy Social History SMOKING STATUS: Never smoker SECOND HAND EXPOSURE: No SUBSTANCE USE: does not use Exam Vital Signs Temp Pulse Resp BP Pulse Ox O2 Del Method O2 Flow Rate 97.7 F 118 H 17 98/47 L 97 Nasal Cannula 3 02/20/25 00:33 02/20/25 00:33 02/20/25 00:33 02/20/25 00:33 02/20/25 00:33 02/20/25 00:33 02/20/25 00:33 Narrative Exam Physical Exam General: Awake and in no acute distress. Conversational and non-toxic appearing elderly female. HEENT: Normocephalic, atraumatic, mucous membranes moist. Heart: Irregular rate and rhythm, no murmurs. Lungs: Clear to auscultation with no wheezing or crackles. Abdomen: Soft, nondistended, nontender, positive bowel sounds. ?No guarding or rebound tenderness. Neurologic: Alert and oriented x2 (does not report the time), no gross neurological deficit, and patient able to move all 4 extremities. Extremities: No tibial edema. Skin: Unstageble sacral ulcer with granulations. Results: Labs 02/19/25 17:50 02/19/25 18:42 Labs: Short CBC 02/19/25 Range/Units 17:50 WBC 13.4 H (3.6-11.0) Thou/mm3 Hgb 13.9 (12.0-16.0) g/dL Hct 40.9 (36.0-46.0) % Plt Count 260 (140-440) Thou/mm3 BMP 02/19/25 18:42 Sodium 135 L Potassium 3.7 Chloride 102 Carbon Dioxide 23.1 BUN 11 Creatinine 0.6 Glucose 115 H Calcium 8.3 Cardiac Enzymes 02/19/25 Range/Units 18:42 Troponin I < 0.020 (0.0-0.045) ng/mL Liver Function 02/19/25 Range/Units 18:42 Total Bilirubin 1.8 H (0.3-1.2) mg/dL AST 121 H (0-34) U/L ALT 54 H (10-49) U/L Alkaline Phosphatase 78 (46-116) U/L Albumin 3.0 L (3.4-4.8) gm/dL Urine 02/20/25 Range/Units 01:00 Urine Color Yellow (Lt Yel-Yel) Urine Clarity Turbid A (Clear/Hazy) Urine pH 6.0 (5.0-7.0) Ur Specific [place] 1.024 (1.001-1.035) Urine Protein Trace (Neg - Trace) Urine Glucose (UA) Negative (Negative) ABG Interpretation ABG results: 02/19/25 18:52 ABG pH 7.41 ABG pCO2 36 ABG pO2 72 L ABG HCO3 23 ABG O2 Saturation 95 ABG Base Excess -2 Quality Measures Quality Measures VTE prophylaxis Advance care planning discussed with:: child Medications Home Medications and Allergies Home Medications ?Medication ?Instructions ?Recorded ?Confirmed ?Type levothyroxine 100 mcg tablet 100 mcg PO QDAY #0 tabs 04/20/16 11/18/23 History loratadine 10 mg tablet 10 mg PO QDAY 11/21/19 11/18/23 History pantoprazole 40 mg tablet,delayed 40 mg PO QDAY 11/21/19 12/13/22 History release budesonide-formoterol HFA 160 2 inh inhalation BID 12/13/22 12/13/22 History mcg-4.5 mcg/actuation aerosol inhaler (Symbicort) buspirone 7.5 mg tablet 7.5 mg PO TID 12/13/22 11/18/23 History cholecalciferol (vitamin D3) 125 125 mcg PO QDAY 12/13/22 12/13/22 History mcg (5,000 unit) tablet (Vitamin D3) clonidine HCl 0.2 mg tablet 0.2 mg PO BID 12/13/22 11/18/23 History Held on 11/25/23. Instructions: Follow-up with your PCP on when to restart. doxepin 25 mg capsule 25 mg PO HS 12/13/22 12/13/22 History hydrocodone 10 mg-acetaminophen 1 tab PO QID PRN Pain 12/13/22 11/18/23 History 325 mg tablet pravastatin 40 mg tablet 40 mg PO HS 12/13/22 11/18/23 History sertraline 50 mg tablet 150 mg PO TID 12/13/22 11/18/23 History apixaban 2.5 mg tablet (Eliquis) 2.5 mg PO BID 11/18/23 11/18/23 History Allergies Allergy/AdvReac Type Severity Reaction Status Date / Time Penicillins Allergy Severe Rash Verified 02/19/25 16:47 sulfamethoxazole Allergy Severe Rash Verified 02/19/25 16:47 trimethoprim Allergy Severe Rash Verified 02/19/25 16:47 carisoprodol AdvReac Severe Dizziness Verified 02/19/25 16:47 Visit Medications Acetaminophen (Acetaminophen 325 Mg Tablet) 650 mg PO Q6H PRN PRN Reason: Fever >100.3 or pain 1-3 Stop: 03/22/25 02:05 Diltiazem HCl 125 mg/ Dextrose 125 mls @ 5 mls/hr IV .Q24H ALBINA Stop: 03/21/25 18:04 Last Admin: 02/19/25 19:55 Dose: 5 mg/hr, 5 mls/hr Ceftriaxone Sodium/Dextrose (Rocephin/D5w 1gm Iv Premix) 50 mls @ 100 mls/hr IV X1 ONE Stop: 02/20/25 02:45 Ceftriaxone Sodium 2 gm/ (Sodium Chloride) 50 mls @ 100 mls/hr IV QDAY ALBINA Stop: 02/27/25 20:59 Magnesium Hydroxide (Milk Of Magnesia Susp 30 Ml Udc) 30 ml PO QDAY PRN; Protocol PRN Reason: CONSTIPATION Stop: 03/22/25 02:05 Ondansetron HCl (Ondansetron Inj 2 Mg/Ml Inj 2 Ml) 4 mg IV Q6H PRN; Protocol PRN Reason: NAUSEA OR VOMITING Stop: 03/22/25 02:05 Oxycodone/Acetaminophen (Oxycodone/Apap 5/325 Tablet) 1 tab PO Q6H PRN PRN Reason: PAIN SCALE 4-6 (Moderate Stop: 02/25/25 02:05 Pharmacy Consult (Vancomycin Pharmacy To Dose 1 Each Each) 1 each IV QDAY ALBINA Stop: 03/22/25 08:59 Rivaroxaban (Rivaroxaban 10 Mg Tablet) 2.5 mg PO BID ALBINA Stop: 03/22/25 08:59 Sennosides (Senna Tablet) 1 tab PO QDAY PRN; Protocol PRN Reason: constipation Stop: 03/22/25 02:05 Discontinued Medications Diltiazem HCl (Diltiazem Inj 5 Mg/Ml Vial 5 Ml) 20 mg IV X1 ONE Stop: 02/19/25 18:05 Last Admin: 02/19/25 19:43 Dose: 20 mg Ceftriaxone Sodium 1,000 mg/ (Sodium Chloride) 50 mls @ 100 mls/hr IV X1 ONE Stop: 02/19/25 19:31 Last Infusion: 02/19/25 22:50 Dose: Infused Vancomycin HCl 1,000 mg/ (Sodium Chloride) 500 mls @ 150 mls/hr IV X1 ONE Stop: 02/19/25 22:21 Last Infusion: 02/19/25 23:30 Dose: Infused Sodium Chloride (Ns) 1,000 mls @ 999 mls/hr IV .Q1H1M ONE Stop: 02/19/25 20:05 Last Infusion: 02/19/25 23:00 Dose: Infused Magnesium Sulfate (Magnesium Sulfate Ivpb) 2 gm in 50 mls @ 25 mls/hr IV X1 ONE Stop: 02/19/25 22:37 Last Admin: 02/19/25 22:30 Dose: 25 mls/hr Azithromycin 500 mg/ Sodium (Chloride) 250 mls @ 250 mls/hr IV X1 ONE Stop: 02/19/25 21:38 Last Admin: 02/19/25 23:00 Dose: 250 mls/hr Ceftriaxone Sodium 2 gm/ (Sodium Chloride) 50 mls @ 100 mls/hr IV QDAY ALBINA Stop: 02/27/25 02:13 Assessment & Plan Plan The patient is 84-year-old female with a previous medical history of hypertension, pulmonary hypertension, A-fib on Eliquis, arthritis, hypothyroidism, anxiety, hyponatremia/SIADH, anemia, hyperlipidemia who was brought in due to sacral wound, general weakness and loss of appetite. #Sepsis 2/2 #Infected sacral pressure ulcer #Suspected sacral osteomyelitis #General weakness Patient has been bedridden for prolonged time and family reports that she started to have bumps on the sacrum 2 weeks ago. Patient has received bolus of fluids in the ED. Imaging showed soft tissue changes and cortical destruction in the sacral area. Plan: - Ceftriaxone 2g qday 02/20/25-current - Vancomycin pharmacy to dose - Blood culture pending - Wound care referral - MRI pelvis wo contrast - pain control #Elevated T. bili #Elevated transaminases #Suspected cholelithiasis Overall, low suspicion for choleldolithiasis due to patient denies abdominal pain, afebrile, examination of the abdomen benign. Imaging was concerning for choledocholithiasis and cholecystitis. Dr. Nguyen, general surgeon was consulted and will be following. Plan: - contnue to monitor for signs of infection - monitor daily CMP, CBC - home pravastatin on hold due to elevated transaminases - MRCP ordered - general surgery consulted #CAP Patient denies cough, fever, chills. Imaging was concerning for pneumonia. Plan: - Rocephin IV - Oxygen as needed #Asymptomatic bacteriuria Patient denies dysuria, examination. UA was positive for bacteria 4+ Plan: - wait for cultures - rocephin 2g #Afib with RVR Most likely in the setting of infection. Plan: - diltiazem drip - replete electrolytes, keep Mg above 2 and K above 4 - resumed home Eliquis 2.5 mg BID #History of hypertension Plan: - BP is in the normal range, will hold BP management for now #Hypothyroidism Plan: - resumed home levothyroxine #Anxiety Plan: - resumed home buspirone and sertraline #History of pulmonary hypertension Patient denies history of lung disease and is following Dr. Neo Witt. Plan: - supplemental oxygen as needed Health maintenance: FEN: cardiac DVT prophylaxis: Eliquis 2.5 mg BID GI prophylaxis: none Dispo: telemetry CODE STATUS: DNR (per daughter, no resuscitation as witnessed by Dr. Castillo and Dr. Lantigua) Plan of care discussed with attending Dr. Castillo. Caryl Reis MD, PGY 1. Attending Provider Attestation/Addendum I have examined the patient, reviewed labs and imaging findings, discussed the case with the resident(s), and reviewed entered orders. I agree with the plan of care as outlined in this note, with these additional summaries/recommendations: Patient is a 84-year-old female who with a medical history of valvular heart disease, chronic atrial fibrillation, primary hypertension, hyperlipidemia, hypothyroidism, anxiety, osteoporosis, severe PAH, and ? Restrictive cardiomyopathy presents to [facility] emergency department with chief complaint of ulcerations and pain in her buttocks area. Patient and daughter seen at bedside in the emergency room. Patient diagnosed with atrial fibrillation with rapid ventricular response. Patient does have underlying chronic atrial fibrillation and likely went into RVR secondary to infectious etiology. Patient not on any rate or rhythm control medications at home. Patient started on diltiazem gtt which we will continue. If blood pressure becomes soft we will consider transitioning to amiodarone drip or cardioversion. Patient's photographic enlarger operator is Dr. Witt. Resume home Eliquis. Correct hypomagnesia and keep potassium greater than 4. Patient also found to have stage III sacral decubitus ulcer that appears infected. CT abdomen and pelvis showed soft tissue defect posterior to the lower sacrum and coccyx with cortical bone destruction involving the coccygeal segments. Start IV antibiotics. Blood cultures taken in the ED and follow-up results when available. Order MRI pelvis to rule out osteomyelitis. If positive we will consult infectious disease. CRP 6.3.Consult wound care and frequent pressure redistribution. CTA of chest and chest x-ray significant for pneumonia although does not appear to have productive cough at this time. Nonetheless patient will be covered with IV antibiotics. Patient also noted to have enlarged common bile duct 14 mm with hyperbilirubinemia and mild transaminitis. Abdominal ultrasound showed cholelithiasis with gallbladder wall thickening, dilated CBD, and recommends MRCP. Case discussed with general surgery and has agreed to consult. Given that patient has a completely benign abdominal exam low suspicion for cholecystitis or choledocholithiasis at this time. Although given abnormal lab values and imaging findings we will proceed with ordering MRCP. Lactic acidosis on admission resolved. 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 Follow-up outpatient with cardiology although if A-fib RVR does not improve we will consider inpatient cardiology consultation. Continue home levothyroxine. Patient and daughter updated on the plan and in agreement. All questions answered to satisfaction. Please see residents note for additional details and management. Dr. Jonathan MD
[2025-02-20] MEDS: Magnesium Sulfate 4 GM Ivpb 4 GM/50 ML BAG IV (03:00)
[2025-02-20] MEDS: POTASSIUM CHLORIDE 20 mEq TABCR 40 MEQ PO (03:01)
[2025-02-20] MEDS: cefTRIAXone/D5w 1gm IV premix 1 GM/50 ML BAG IV (03:23)
[2025-02-20 05:10] LABS: Basophils % (Auto) 0 % (0-2.5); Eosinophils % (Auto) 0 % (0-10); Hematocrit 31.1 % (36.0-46.0); Hemoglobin 10.6 g/dL (12.0-16.0); Immature Granulocytes % (Auto) 0 % (0-0); Immature Granulocytes Auto 0.05 Thou/mm3 (0.00-0.00); Lymphocytes # (Auto) 1.4 Thou/mm3 (1.0-4.8); Lymphocytes % (Auto) 10 % (10-50); Mean Corpuscular HGB Conc 34.1 g/dl (31.0-37.0); Mean Corpuscular Hemoglobin 30.1 pg (25.0-35.0); Mean Corpuscular Volume 88 fL (80-100); Monocytes # (Auto) 0.8 Thou/mm3 (0.0-0.8); Monocytes % (Auto) 6 % (0-12); Neutrophils % (Auto) 83 % (37-80); Nucleated Red Blood Cell % 0 /100 WBC (0); Platelet Count 282 Thou/mm3 (140-440); RDW Standard Deviation 56.4 fL (36.4-46.3); Red Blood Count 3.52 Miln/mm3 (4.00-5.20); White Blood Count 13.3 Thou/mm3 (3.6-11.0)
[2025-02-20 06:25] LABS: Alanine Aminotransferase 45 U/L (10-49); Albumin, Serum 2.5 gm/dL (3.4-4.8); Alkaline Phosphatase 63 U/L (46-116); Anion Gap 8 (7-16); Aspartate Amino Transferase 95 U/L (0-34); BUN/Creatinine Ratio 23 Ratio (12-20); Bilirubin,Total 0.8 mg/dL (0.3-1.2); Blood Urea Nitrogen 9 mg/dL (9-23); Calcium 7.6 mg/dL (8.3-10.6); Calcium (Corrected) 8.8 mg/dL (8.5-10.1); Carbon Dioxide 23.4 mMol/L (20.0-31.0); Chloride 106 mMol/L (98-107); Creatinine (Component) 0.4 mg/dL (0.6-1.3); Estimated Creatinine Clearance 74.9 mL/min (>60); Globulin 2.6 gm/dL (2.3-3.5); Glucose 83 mg/dL (74-106); Magnesium 2.4 mg/dL (1.6-2.6); Osmolality,Calculated 271 (275-295); Potassium 3.6 mMol/L (3.4-5.1); Sodium 137 mMol/L (136-145); Total Protein 5.1 gm/dL (5.7-8.2); eGFR > 60 See Note
--- NOTE | 2025-02-20 07:02 | PC.NURSE ---
Pt sleeping most of the evening. Family at bedside.
--- NOTE | 2025-02-20 08:43 | PC.NURSE ---
Contacted pharmacy to send patients morning meds as they are over 2 hours late. Pharmacy to deliver
[2025-02-20] MEDS: SERTRALINE HCL 25 MG TABLET 150 MG PO (09:14)
[2025-02-20] MEDS: APIXABAN 2.5 MG TABLET PO (09:14)
[2025-02-20] MEDS: BusPIRone HCL 5 MG TABLET 7.5 MG PO ×3 (09:15→21:58)
[2025-02-20] MEDS: LEVOTHYROXINE SODIUM 100 MCG TABLET PO (09:16)
[2025-02-20] MEDS: VANCOMYCIN/NS 1 GM IVPB 200 ML IV ×2 (09:26→22:50)
--- NOTE | 2025-02-20 10:45 | CHAP ---
Patient was prayed for by the Spiritual Care Volunteer. (Volunteer was in the hospital from 09:13-10:45).
--- NOTE | 2025-02-20 11:55 | PD.SURCONS ---
HPI Consult details Consult date: 02/20/25 Reason for consultation narrative: The patient was seen on consultation because of gallstones and mildly elevated liver enzymes History of present illness: History of present illness revealed that the patient is not able to give any history. Some information was obtained in bits and pieces from the who accompanied her. Apparently the patient has been sick and bedridden for couple of years and she has developed decubitus ulcer over the back. He does not seem to come planing of any abdominal pain but she was brought because of increasing weakness and inability to eat. She has had no fever or chills. She has multiple medical problem including hypertension and pulmonary hypertension and hypothyroidism and chronic bedsore. She also has atrial fibrillation with rapid ventricular rate and is on Eliquis. Past Medical History Past Medical History NEUROLOGIC: Positive Seizures (long time ago 40 yrs ago one time- after posterior neck sx); Negative Neurological Disorders CARDIAC: Positive Cardiac Disorders, Atrial Fibrillation and Hypertension; Negative Congestive Heart Failure RESPIRATORY: Positive Respiratory Disorders and Asthma; Negative Chronic Obstructive Pulmonary Disease (COPD) GASTROINTESTINAL: Positive Gall Bladder Disease GENITOURINARY: Negative Renal Disease MUSCULOSKELETAL: Positive Arthritis ENDOCRINE: Positive Hypothyroidism; Negative Diabetes Mellitus Type 1 or Diabetes Mellitus Type 2 HEMATOLOGIC: Positive Anemia; Negative Sickle Cell Disease PSYCHO/SOCIAL: Positive Anxiety OTHER HISTORY: Positive Anesthesia Reactions (one time they couldnt wake me up); Negative Blood Transfusions Surgical History SURGICAL: Positive Angiogram, Abdominal Surgery and Hysterectomy Social History SMOKING STATUS: Never smoker SECOND HAND EXPOSURE: No SUBSTANCE USE: does not use Meds Home Medications and Allergies Home Medications ?Medication ?Instructions ?Recorded ?Confirmed ?Type levothyroxine 100 mcg tablet 100 mcg PO QDAY #0 tabs 04/20/16 11/18/23 History loratadine 10 mg tablet 10 mg PO QDAY 11/21/19 11/18/23 History pantoprazole 40 mg tablet,delayed 40 mg PO QDAY 11/21/19 12/13/22 History release budesonide-formoterol HFA 160 2 inh inhalation BID 12/13/22 12/13/22 History mcg-4.5 mcg/actuation aerosol inhaler (Symbicort) buspirone 7.5 mg tablet 7.5 mg PO TID 12/13/22 11/18/23 History cholecalciferol (vitamin D3) 125 125 mcg PO QDAY 12/13/22 12/13/22 History mcg (5,000 unit) tablet (Vitamin D3) clonidine HCl 0.2 mg tablet 0.2 mg PO BID 12/13/22 11/18/23 History Held on 11/25/23. Instructions: Follow-up with your PCP on when to restart. doxepin 25 mg capsule 25 mg PO HS 12/13/22 12/13/22 History hydrocodone 10 mg-acetaminophen 1 tab PO QID PRN Pain 12/13/22 11/18/23 History 325 mg tablet pravastatin 40 mg tablet 40 mg PO HS 12/13/22 11/18/23 History sertraline 50 mg tablet 150 mg PO TID 12/13/22 11/18/23 History apixaban 2.5 mg tablet (Eliquis) 2.5 mg PO BID 11/18/23 11/18/23 History Allergies Allergy/AdvReac Type Severity Reaction Status Date / Time Penicillins Allergy Severe Rash Verified 02/19/25 16:47 sulfamethoxazole Allergy Severe Rash Verified 02/19/25 16:47 trimethoprim Allergy Severe Rash Verified 02/19/25 16:47 carisoprodol AdvReac Severe Dizziness Verified 02/19/25 16:47 Exam Vital Signs Temp Pulse Resp BP Pulse Ox O2 Del Method O2 Flow Rate 98.8 F 70 20 92/65 100 Nasal Cannula 2 02/20/25 10:48 02/20/25 10:48 02/20/25 10:48 02/20/25 10:48 02/20/25 10:48 02/20/25 10:48 02/20/25 10:48 Narrative Exam Physical examination revealed a thin built 84-year-old female who is about 4 foot 10 inches tall weighing only 110 pounds with BMI of 23. Her vital signs are normal Constitutional Constitutional: mild distress Routine Chest/Breast/Axilla Exam Comments: Unable to examine the chest because of electrodes Routine Abdominal Exam Comments: Abdomen showed that she is slightly tender on the right side both upper and lower. There are no signs of peritoneal irritation or positive Chilel sign. Routine Rectal Exam Comments: Could not be done because patient was difficult to move Routine Back/Spine/Pelvis Exam Comments: Examination of the back revealed a large sacral decubitus ulcer measuring 8 to 10 cm in diameter and has necrotic greenish tissue. Routine Neurological Exam Comments: Unable to perform neurological examination Results Results: Laboratory Laboratory Narrative: Laboratory results show mild leukocytosis with 13,500. Apparently proteins and albumin are very low obviously due to chronic malnutrition. Results: Imaging Imaging narrative: Ultrasound of the abdomen showed gallstones with thickening of the gallbladder wall CT scan of the abdomen and pelvis showed some osteomyelitis of the sacral area Patient also had a CTA which showed no pulmonary embolism but bilateral pneumonia with effusion. Chest x-ray showed left lobe pneumonia Assessment & Plan Additional Assessment Additional comments: Impression: Patient has multiple medical problems for which she came to the emergency room. The gallstones may be an incidental finding but that is not the priority in this patient at this time. She does not require MRCP or any further workup for the biliary disease. I am not even sure if the patient is going to be a candidate for surgery especially with atrial fibrillation and anticoagulation. Plan Plan: No indication for surgery at this time for gallstones. I am not sure if the gallstones are symptomatic. We can just leave the gallstones alone unless there is compelling need for drainage or surgery. Her other problem needs to be assessed. Patient may require debridement of the sacral decubitus ulcer. Thank you very much
--- NOTE | 2025-02-20 13:07 | ESPR_ITS ---
Documentation for date of: 02/20/25 Subjective Subjective Interval history: Overnight admission. Patient is an 84-year-old female with a past medical history of hypertension, hyperlipidemia, atrial fibrillation (Eliquis) who previously was on carvedilol 6.25 twice daily but discontinued November 2023, Pulmonary HTN, hypothyroidism, SARAH, anemia of chronic disease who presented to the emergency room with a chief complaint of decreased appetite and hives on butt . Patient is mostly bed bound for the past two years secondary to generalized weakness. Per daughter who was in the room, had a small sacral ulcer for the past two years that appeared healed but over the past 11 days, ulcer has increased in size after applying moisturizing location. Per patient's daughter, patient began to have decreased appetite despite being on Mirtazipine at home. Denied any sick contacts. Denied any chest pain or shortness of breath. Cholelithiasis noted on imaging, patient denied right upper quadrant abdominal pain. Chilel's sign negative. General surgery consulted, no plan for cholestectomy and no plan for surgical debriment of sacral region, medical management at this point. Patient was started on Diltiazem drip on arrival as patient was in afib w/ rvr. First back completed and patient was transitioned to Diltizem 30 mg TID oral. Exam Vital Signs Temp Pulse Resp BP Pulse Ox O2 Del Method O2 Flow Rate 98.8 F 70 20 92/65 100 Nasal Cannula 2 02/20/25 10:48 02/20/25 10:48 02/20/25 10:48 02/20/25 10:48 02/20/25 10:48 02/20/25 10:48 02/20/25 10:48 Narrative Exam General Appearance: Alert & Oriented X2, well-nourished female who is lying in bed in mild discomfort when patient was rolled over to appreciate ulcer. Ulcer is foul smelling and appears to a purulent discharge. HEENT: Skull symmetrical and atraumatic. Conjunctivae pin and moist. Pupils equal, round, reactive to light and accommodation (PERRL). External ear without lesion or discharge. Straight, nares patient, mucosa pink, no discharge. No thyroid nodule appreciated. No cervical lymphadenopathy. Cardio: Normal Rate and Rhythm with S1 and S2 heart sounds. No murmurs or extra heart sounds auscultated. No bruits on carotid auscultation. No peripheral edema or cyanosis. Lungs: Symmetric with good expansion. Chest and back non-tender. Breath sounds vesicular with rhonchi Abdomen: Non-tender, Non-distended, Normal Reactive Bowel Sounds, Negative Chilel's sign. Neuro: Yes Alert, cooperative, oriented to person, place, and time. Speech clear. CN grossly intact. Upper motor strength 5/5 and Lower motor strength 5/5. Sensation intact. Objective Labs 02/21/25 05:37 02/21/25 05:37 Labs: Laboratory Results - last 24 hr 02/19/25 02/19/25 02/19/25 17:41 17:50 18:42 WBC 13.4 H RBC 4.63 Hgb 13.9 Hct 40.9 MCV 88 MCH 30.0 MCHC 34.0 RDW Std Deviation 56.3 H Plt Count 260 Neut % (Auto) 76 Lymph % (Auto) 18 [place] % (Auto) 5 Eos % (Auto) 1 Baso % (Auto) 0 Neut # (Auto) 10.2 H Lymph # (Auto) 2.4 [place] # (Auto) 0.7 Eos # (Auto) 0.1 Baso # (Auto) 0.0 Immature Gran # (Auto) 0.09 H Absolute Nucleated RBC 0.00 Immature Gran % 1 H Nucleated RBC % 0 ESR 20 D-Dimer 3200 H Puncture Site ABG pH ABG pCO2 ABG pO2 ABG HCO3 ABG O2 Saturation ABG Base Excess FiO2 Sodium 135 L Potassium 3.7 Chloride 102 Carbon Dioxide 23.1 Anion Gap 10 BUN 11 Creatinine 0.6 Estim Creat Clear Calc 49.9 L eGFR > 60 BUN/Creatinine Ratio 18 Glucose 115 H Calculated Osmolality 270 L Lactic Acid 2.4 H Calcium 8.3 Corrected Calcium 9.1 Magnesium 1.5 L Total Bilirubin 1.8 H AST 121 H ALT 54 H Alkaline Phosphatase 78 Troponin I < 0.020 C-Reactive Prot, Quant 6.3 H B-Natriuretic Peptide 254 H Total Protein 6.2 Albumin 3.0 L Globulin 3.2 Albumin/Globulin Ratio 0.9 L Procalcitonin 0.91 H TSH 10.97 H Free T4 1.22 Ur Collection Type Urine Color Urine Clarity Urine pH Ur Specific [place] Urine Protein Urine Glucose (UA) Urine Ketones Urine Blood Urine Nitrite Urine Bilirubin Urine Urobilinogen (Auto) Ur Leukocyte Esterase Urine RBC Urine WBC Ur Squamous Epith Cells Urine Bacteria Hyaline Casts 02/19/25 02/19/25 02/20/25 18:52 22:33 01:00 WBC RBC Hgb Hct MCV MCH MCHC RDW Std Deviation Plt Count Neut % (Auto) Lymph % (Auto) [place] % (Auto) Eos % (Auto) Baso % (Auto) Neut # (Auto) Lymph # (Auto) [place] # (Auto) Eos # (Auto) Baso # (Auto) Immature Gran # (Auto) Absolute Nucleated RBC Immature Gran % Nucleated RBC % ESR D-Dimer Puncture Site Right Radial ABG pH 7.41 ABG pCO2 36 ABG pO2 72 L ABG HCO3 23 ABG O2 Saturation 95 ABG Base Excess -2 FiO2 21 Sodium Potassium Chloride Carbon Dioxide Anion Gap BUN Creatinine Estim Creat Clear Calc eGFR BUN/Creatinine Ratio Glucose Calculated Osmolality Lactic Acid 1.7 Calcium Corrected Calcium Magnesium Total Bilirubin AST ALT Alkaline Phosphatase Troponin I C-Reactive Prot, Quant B-Natriuretic Peptide Total Protein Albumin Globulin Albumin/Globulin Ratio Procalcitonin TSH Free T4 Ur Collection Type Clean Catch Urine Color Yellow Urine Clarity Turbid A Urine pH 6.0 Ur Specific [place] 1.024 Urine Protein Trace Urine Glucose (UA) Negative Urine Ketones Negative Urine Blood Negative Urine Nitrite Negative Urine Bilirubin Negative Urine Urobilinogen (Auto) 6.0 Ur Leukocyte Esterase Negative Urine RBC 0 Urine WBC 0 Ur Squamous Epith Cells 1 Urine Bacteria 4+ A Hyaline Casts < 1 02/20/25 04:50 WBC 13.3 H RBC 3.52 L Hgb 10.6 L D Hct 31.1 L MCV 88 MCH 30.1 MCHC 34.1 RDW Std Deviation 56.4 H Plt Count 282 Neut % (Auto) 83 H Lymph % (Auto) 10 [place] % (Auto) 6 Eos % (Auto) 0 Baso % (Auto) 0 Neut # (Auto) 11.0 H Lymph # (Auto) 1.4 [place] # (Auto) 0.8 Eos # (Auto) 0.0 Baso # (Auto) 0.0 Immature Gran # (Auto) 0.05 H Absolute Nucleated RBC 0.00 Immature Gran % 0 Nucleated RBC % 0 ESR D-Dimer Puncture Site ABG pH ABG pCO2 ABG pO2 ABG HCO3 ABG O2 Saturation ABG Base Excess FiO2 Sodium 137 Potassium 3.6 Chloride 106 Carbon Dioxide 23.4 Anion Gap 8 BUN 9 Creatinine 0.4 L Estim Creat Clear Calc 74.9 eGFR > 60 BUN/Creatinine Ratio 23 H Glucose 83 Calculated Osmolality 271 L Lactic Acid Calcium 7.6 L Corrected Calcium 8.8 Magnesium 2.4 Total Bilirubin 0.8 D AST 95 H ALT 45 Alkaline Phosphatase 63 Troponin I C-Reactive Prot, Quant B-Natriuretic Peptide Total Protein 5.1 L Albumin 2.5 L D Globulin 2.6 Albumin/Globulin Ratio 1.0 L Procalcitonin TSH Free T4 Ur Collection Type Urine Color Urine Clarity Urine pH Ur Specific [place] Urine Protein Urine Glucose (UA) Urine Ketones Urine Blood Urine Nitrite Urine Bilirubin Urine Urobilinogen (Auto) Ur Leukocyte Esterase Urine RBC Urine WBC Ur Squamous Epith Cells Urine Bacteria Hyaline Casts ABG Interpretation ABG results: 02/19/25 18:52 ABG pH 7.41 ABG pCO2 36 ABG pO2 72 L ABG HCO3 23 ABG O2 Saturation 95 ABG Base Excess -2 Quality Measures Quality Measures VTE prophylaxis Advance care planning discussed with:: patient Assessment & Plan Assessment Current Active Medications: Generic Name Dose Route Start Last Admin Trade Name Freq PRN Reason Stop Dose Admin Acetaminophen 650 mg 02/20/25 02:06 Acetaminophen 325 Mg Tablet PO 03/22/25 02:05 Q6H PRN Fever >100.3 or pain 1-3 Apixaban 2.5 mg 02/20/25 09:00 02/20/25 09:14 Apixaban 2.5 Mg Tablet PO 03/22/25 08:59 2.5 mg BID ALBINA Administration Buspirone HCl 7.5 mg 02/20/25 06:00 02/20/25 09:15 Buspirone Hcl 5 Mg Tablet PO 03/22/25 05:59 7.5 mg TID ALBINA Administration Diltiazem HCl 125 mg/ Dextrose 125 mls @ 5 mls/hr 02/19/25 18:05 02/19/25 19:55 IV 03/21/25 18:04 5 mg/hr .Q24H ALBINA 5 mls/hr Administration 5 MG/HR Ceftriaxone Sodium 2 gm/ 50 mls @ 100 mls/hr 02/20/25 21:00 Sodium Chloride IV 02/27/25 20:59 HS ALBINA Levothyroxine Sodium 100 mcg 02/20/25 06:00 02/20/25 09:16 Levothyroxine Sodium 100 Mcg Tablet PO 03/22/25 05:59 100 mcg ACBR ALBINA Administration Magnesium Hydroxide 30 ml 02/20/25 02:06 Milk Of Magnesia Susp 30 Ml Udc PO 03/22/25 02:05 QDAY PRN CONSTIPATION Protocol Melatonin 3 mg 02/20/25 21:00 Melatonin 3 Mg Tablet PO 03/22/25 20:59 HS ALBINA Ondansetron HCl 4 mg 02/20/25 02:06 Ondansetron Inj 2 Mg/Ml Inj 2 Ml IV 03/22/25 02:05 Q6H PRN NAUSEA OR VOMITING Protocol Oxycodone/Acetaminophen 1 tab 02/20/25 02:06 Oxycodone/Apap 5/325 Tablet PO 02/25/25 02:05 Q6H PRN PAIN SCALE 4-6 (Moderate Pharmacy Consult 1 each 02/20/25 09:00 Vancomycin Pharmacy To Dose 1 Each Each IV 03/22/25 08:59 QDAY PRN CONSULT Sennosides 1 tab 02/20/25 02:06 Senna Tablet PO 03/22/25 02:05 QDAY PRN constipation Protocol Sertraline HCl 150 mg 02/20/25 09:00 02/20/25 09:14 Sertraline Hcl 25 Mg Tablet PO 03/22/25 08:59 150 mg QDAY ALBINA Administration Plan Patient is an 84-year-old female with a past medical history of hypertension, hyperlipidemia, atrial fibrillation (Eliquis), Pulmonary HTN, hypothyroidism, SARAH, and anemia of chornic disease who was admitted on for sepsis secondary to soft tissue infection and CAP. #Sepsis secondary CAP w/ bilateral pleural effusion #Acute hypoxic respiratory failure #CAP, likely GPC #Bibasilar pneumonia w/ bilateral moderate bilateral pleural effusion Patient presented with acute hypoxic respiratory failure, requiring oxygen as patient spO2 as low as 62% requiring addition oxygen support in the ER on nasal canual of 4 liters. Patient was noted to have bibasilar pneumoina with bilateral moderate plerual effusion. Likely secondary to community acquired pneumonia GPC. Previous imagining did not show pleural effusion. Meeting SIRs criteria: tachycardia, tachypenia, elevated WBC count w/ source of infection. Lactic acid 2.4-->1.7 DDx: Aspiration can not be rule out. Viral less likely as flu and covid negative vs Less likely malignancy as family denied any weight loss but patient has had decreased appetite over the last 3 days. CTA chest negative w/ elevated D-Dimers likely secondary to infectious process. SOFA 2 Plan -Ceftriaxone 2 gm Qday (covering osteo as well) 02/19/2025 -Sputum Cultures -Cocci pending -IR guided, Thoracentesis w/ pleural analysis and cytology -PT/PTT AM -Ensure protein -consider small bolus of 250 if BP drops #Soft Tissue Infection, Sacral & Coccyx Ulcer #Cortical bone destruction, likely osteomyelitis Previous history of sacral ulcer but no history of osteomyelitis previously noted, given cortical bone destruction on CT, follow up with MRI pelvis. Surgery consulted, medical management recommended at this time. Plan: -MRI pelvis pending -Ceftriaxone 2 grams and Vancomycin 02/19/2025 -Wound care -consider wound culture, but likely will be poor sample given location -General Surgery Consulted, Dr. Nguyen, appreciate recommendations #Atrial Fibrillation, w/ rvr #Atrial Fibrillation Patient has a past medical history of atrial Fibrillation rate controlled previously on Carvedilol which was D/C last year and remained on Eliquis 2.5 BID. Atrial fibrillation saba triggered by pneumonia versus soft tissue infection Plan -Dilt drip d/c -Ditiazem 60 mg TID (hold if systolic BP <100) -Holding Eliquis for possible thoracentesis #Restrictive Cardiomyopathy #Severe Pulmonary HTN #History Hypertension Patient has a past medical history of hypertension with systolic blood pressures <140 and no anti-hypertensives in medication list. Currently holding off on blood pressure medication given soft blood pressure. Echo 2023: EF 60-65%, RVSP 65, Severe PAH Restrictive Cardiomyopathy . Moderate to Severe TR Plan -Monitor Blood Pressure #Hyperlipidemia Home medication of Pravastatin 40 mg HS. 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 Plan -Resume home medication Levothyroxine 100 mg ACBR #Cholelithiasis CT abdomen/pelvis CT noted to have a common bile duct 14 mm and follow up us of gallbladder showing multiple stones and common bile duct 0.9, thus less choledocholithiasis. Chilel's sign negative w/ soft abdomen. Plan -continue to trend AST/ALT -Surgery Consulted, Dr. Nguyen, no surgical intervention planned. #History of Anxiety Continue home medication of Sertraline and Busprione. Plan -Continue Sertraline 150 mg qday and Buspirone 7.5 mg TID -Melatonin HS PRN #Moderate hepatomegaly, noted on CT abdomen Health Maintenance: Disp: Pt is currently admitted to floors for further management of sepsis secondary to soft tissue infection, awaiting wound care and blood cultures and thoracentesis FEN: Dysphagia 2 DVT: Eliquis 2.5 mg BID and Compression Device Code: DNR - The patient's plan was discussed with attending Dr. Irma Peterson MD PGY1 Internal Medicine Attending Provider Attestation/Addendum I reviewed labs, imaging, EKG, home medications and prior available records. Face to face evaluation was performed by me. I have personally examined the patient and discussed assessment and plan with the IM team. I reviewed the resident note and agree with the plan with exceptions as below. Sepsis secondary to pneumonia Osteomyelitis of sacrum Atrial fibrillation with RVR Decubitus ulcer of sacrum, unstageable Continue IV vancomycin/ceftriaxone Continue wound care MRI of the spine Started IV diltiazem. Switched to p.o. diltiazem consulted cardiology Consulted surgery
--- NOTE | 2025-02-20 16:29 | PC.NURSE ---
Contacted pharmacy to deliver buspar as it is 2 hours over due
--- NOTE | 2025-02-20 20:20 | ESCONSULT_ITS ---
RE: KIM PARADA : 1940 DATE OF CONSULTATION: 02/20/2025 Consultation is asked by the hospitalist. PERTINENT HISTORY OF PRESENT ILLNESS: Mrs. Kim Parada is an 84-year-old female, who is known to have history of multiple problems of chronic atrial fibrillation, chronic hypertension, history of hyperlipidemia, history of hypothyroidism, and history of anxiety. The patient has been at home since the last hospitalization with left hip fracture and for the last 3-4 days, patient was having poor appetite. For the last couple of days, patient has not been eating at all. Because of these symptoms, patient was brought in over to the emergency room and was noted to be in atrial fibrillation with fast ventricular response. The patient also was noted to have possible pneumonia; although, patient denies any complaint of fever or chills. Denies any complaint of chest pain. Denies any complaint of skipped beats or palpitations. The patient has not been having any symptoms of dizziness or diaphoresis. PAST MEDICAL HISTORY: Significant for history of chronic atrial fibrillation for the last several years and has been on chronic anticoagulant therapy, history of chronic hypertension for the last several years, history of hyperlipidemia for the last several years, history of hypothyroidism for the last few years, and history of chronic anxiety for the last several years. PAST SURGICAL HISTORY: The patient has history of left hip fracture, requiring hospitalization in 11/2013. PERSONAL HISTORY: The patient is nonsmoker and nonalcoholic. There is no history of any drug abuse. PERTINENT PHYSICAL FINDINGS: VITAL SIGNS: Show patient's blood pressure is 87/53, pulse rate at the present time is 69 per minute and irregularly irregular, respiratory rate is 19, temperature is 97.9, and oximetry saturation on 2 L of oxygen by nasal cannula is 100%. HEAD AND NECK: Unremarkable. JVP is not elevated. Carotid pulsations are palpable on both sides. No carotid bruit is heard. HEART: PMI is neither palpable nor visible. S1 and S2 are normal. The heart rhythm is irregularly irregular. No murmur or gallop is appreciated. LUNGS: Show few basal rhonchi and slightly decreased breath sounds at the bases. ABDOMEN: Soft. No organomegaly. EXTREMITIES: No pedal edema is noted. Peripheral pulses in the feet are palpable. NEUROLOGIC: Unremarkable. No focal localizing neuro deficit is appreciated. LABORATORY DATA: Yesterday showed WBC count of 13,400 and hemoglobin of 13.9 with a hematocrit of 40.9. Today's WBC count is 13,300 and hemoglobin is down to 10.6 with hematocrit of 31.1. The patient's BUN yesterday was 11, creatinine 0.6, and potassium level of 3.7. Today's BUN is 9, creatinine is 0.4, and potassium level is 3.6. The serum albumin level is low and is down to only 2.5. TSH level yesterday was high and was 10.97. T4 level though is within the normal range and is 1.22. The liver enzymes yesterday showed AST of 121 and ALT of 54. Today's ALT is down to normal and is 45 and AST is also lower than yesterday and is 95. Total bilirubin yesterday was 1.8 and is down to normal and is 0.8. The electrocardiogram on admission showed atrial fibrillation with fast ventricular response. Chest x-ray done yesterday was reported to show left base pneumonia. The abdominal CT scan done yesterday showed common bile duct enlargement. The patient's CT scan of the head was reported to be unremarkable. Abdominal ultrasound study showed multiple gallstones and enlargement of the common bile duct. CLINICAL IMPRESSION: 1. Possible acute cholecystitis and cholelithiasis. 2. Possible left-sided pneumonia. 3. Atrial fibrillation with fast ventricular response on admission; though presently, patient's heart rate is under good control and the rate is ranging in 70s and 80s. 4. Chronic hypertension as per history. 5. Hypothyroidism as per history. 6. Chronic anxiety. SUGGESTIONS: I agree with present plan of management of the patient of continuing the patient on IV antibiotic therapy. The patient is also on anticoagulant therapy, which will be continued. Cardiac echo Doppler study will be ordered. I will follow the patient with you and highly thank you very much for letting me participate in the care of the patient. DT: 18::53 TT: 20:18:00 Ref: [id number] - TID: [id number]
[2025-02-20] MEDS: cefTRIAXone 2 GM in SODIUM CHLORIDE 0.9% (Popper) 50 ML IV (20:45)
[2025-02-20] MEDS: ATORVASTATIN CALCIUM 20 MG TABLET 40 MG PO (21:58)
[2025-02-21] VITALS (12 sets, daily range): BP systolic 99–124; BP diastolic 56–97; PULSE 78–133; RESP 16–20; TEMP 36.2–36.4; O2SAT 90–100; BMI 22.9; BMI 23.1
[2025-02-21] MEDS: BusPIRone HCL 5 MG TABLET 7.5 MG PO ×3 (05:23→21:51)
[2025-02-21] MEDS: LEVOTHYROXINE SODIUM 100 MCG TABLET PO (05:23)
[2025-02-21 06:25] LABS: Basophils % (Auto) 0 % (0-2.5); Eosinophils # (Auto) 0.1 Thou/mm3 (0.0-0.5); Eosinophils % (Auto) 1 % (0-10); Hemoglobin 10.7 g/dL (12.0-16.0); Immature Granulocytes % (Auto) 1 % (0-0); Immature Granulocytes Auto 0.07 Thou/mm3 (0.00-0.00); Lymphocytes # (Auto) 1.4 Thou/mm3 (1.0-4.8); Lymphocytes % (Auto) 12 % (10-50); Mean Corpuscular HGB Conc 33.4 g/dl (31.0-37.0); Mean Corpuscular Hemoglobin 30.3 pg (25.0-35.0); Mean Corpuscular Volume 91 fL (80-100); Monocytes # (Auto) 0.7 Thou/mm3 (0.0-0.8); Monocytes % (Auto) 7 % (0-12); Neutrophils % (Auto) 80 % (37-80); Nucleated Red Blood Cell % 0 /100 WBC (0); Platelet Count 286 Thou/mm3 (140-440); RDW Standard Deviation 59.1 fL (36.4-46.3); Red Blood Count 3.53 Miln/mm3 (4.00-5.20); White Blood Count 11.3 Thou/mm3 (3.6-11.0)
[2025-02-21 06:49] LABS: Alanine Aminotransferase 38 U/L (10-49); Albumin, Serum 2.5 gm/dL (3.4-4.8); Albumin/Globulin Ratio 0.9 (1.2-2.2); Alkaline Phosphatase 64 U/L (46-116); Anion Gap 7 (7-16); Aspartate Amino Transferase 73 U/L (0-34); BUN/Creatinine Ratio 20 Ratio (12-20); Bilirubin,Total 0.6 mg/dL (0.3-1.2); Blood Urea Nitrogen 8 mg/dL (9-23); Calcium 7.5 mg/dL (8.3-10.6); Calcium (Corrected) 8.7 mg/dL (8.5-10.1); Carbon Dioxide 21.7 mMol/L (20.0-31.0); Chloride 107 mMol/L (98-107); Cholesterol 104 mg/dL (132-200); Creatinine (Component) 0.4 mg/dL (0.6-1.3); Estimated Creatinine Clearance 74.9 mL/min (>60); Globulin 2.7 gm/dL (2.3-3.5); Glucose 67 mg/dL (74-106); HDL Cholesterol 35 mg/dL (40-60); INR 1.2 (0.9-1.3); LDL Cholesterol,Calculated 53 mg/dL (0-130); Magnesium 2.1 mg/dL (1.6-2.6); Osmolality,Calculated 268 (275-295); Partial Thromboplastin Time 35.7 Seconds (22.0-36.0); Prothrombin Time 12.6 Seconds (9.0-12.2); Sodium 136 mMol/L (136-145); Total Protein 5.2 gm/dL (5.7-8.2); Triglycerides 80 mg/dL (30-150); eGFR > 60 See Note
--- NOTE | 2025-02-21 08:35 | XR_ITS ---
Examination: Ultrasound right hemithorax Ultrasound left hemithorax Exam date and time: February 21, 2025 1133 hours INDICATIONS: Shortness of breath this week, pleural fluid on CT study February 19, 2025 TECHNIQUE AND FINDINGS: Grayscale sonographic images hemithoraces Small to moderate bilateral pleural effusions, however lung surface is adjacent to the pleural surface on all images IMPRESSION: Insufficient pleural fluid for safe thoracentesis
[2025-02-21] MEDS: VANCOMYCIN/NS 1 GM IVPB 200 ML IV (09:01)
[2025-02-21] MEDS: SERTRALINE HCL 25 MG TABLET 150 MG PO (09:01)
--- NOTE | 2025-02-21 10:51 | PC.SS ---
Follow up note: Thoracentesis today. General surgery recommendations pending. On IV antibiotic.
[2025-02-21] MEDS: COLLAGENASE OINT 30 GM TUBE TOP (11:15)
--- NOTE | 2025-02-21 11:30 | ESPR_ITS ---
Documentation for date of: 02/21/25 Subjective Subjective Interval history: No overnight events reported for patient. Patient deneid any chest pain or SOB. No pyrexia reported. Thoracentesis unable to be obtained by IR as insufficient pleural fluid. Given soft blood pressure, stopped Diltiazem and started loading dose of digoxin. Echo pending by cardio and MR pelvis pending to confirm osteomylities of sacral bone. PT on board, for possible home health needs upon discharge. Eliquis resumed. Exam Vital Signs Temp Pulse Resp BP Pulse Ox O2 Del Method O2 Flow Rate 97.5 F 82 19 116/64 97 Nasal Cannula 2 02/21/25 08:00 02/21/25 08:00 02/21/25 08:00 02/21/25 08:00 02/21/25 08:00 02/21/25 08:00 02/21/25 08:00 Narrative Exam General Appearance: Alert & Oriented X2, well-nourished female who is lying in bed in mild discomfort when patient was rolled over to appreciate ulcer. Ulcer is foul smelling and appears to a purulent discharge. HEENT: Skull symmetrical and atraumatic. Conjunctivae pin and moist. Pupils equal, round, reactive to light and accommodation (PERRL). External ear without lesion or discharge. Straight, nares patient, mucosa pink, no discharge. No thyroid nodule appreciated. No cervical lymphadenopathy. Cardio: Normal Rate and Rhythm with S1 and S2 heart sounds. No murmurs or extra heart sounds auscultated. No bruits on carotid auscultation. No peripheral edema or cyanosis. Lungs: Symmetric with good expansion. Chest and back non-tender. Breath sounds vesicular with rhonchi Abdomen: Non-tender, Non-distended, Normal Reactive Bowel Sounds, Negative Chilel's sign. Neuro: Yes Alert, cooperative, oriented to person, place, and time. Speech clear. CN grossly intact. Upper motor strength 5/5 and Lower motor strength 5/5. Sensation intact. Objective Labs 02/22/25 08:01 02/21/25 05:37 Labs: Laboratory Results - last 24 hr 02/21/25 05:37 WBC 11.3 H RBC 3.53 L Hgb 10.7 L Hct 32.0 L MCV 91 MCH 30.3 MCHC 33.4 RDW Std Deviation 59.1 H Plt Count 286 Neut % (Auto) 80 Lymph % (Auto) 12 Carlton % (Auto) 7 Eos % (Auto) 1 Baso % (Auto) 0 Neut # (Auto) 9.0 H Lymph # (Auto) 1.4 Carlton # (Auto) 0.7 Eos # (Auto) 0.1 Baso # (Auto) 0.0 Immature Gran # (Auto) 0.07 H Absolute Nucleated RBC 0.00 Immature Gran % 1 H Nucleated RBC % 0 PT 12.6 H INR 1.2 APTT 35.7 Sodium 136 Potassium 4.0 Chloride 107 Carbon Dioxide 21.7 Anion Gap 7 BUN 8 L Creatinine 0.4 L Estim Creat Clear Calc 74.9 eGFR > 60 BUN/Creatinine Ratio 20 Glucose 67 L Calculated Osmolality 268 L Calcium 7.5 L Corrected Calcium 8.7 Phosphorus 2.0 L Magnesium 2.1 Total Bilirubin 0.6 AST 73 H ALT 38 Alkaline Phosphatase 64 Total Protein 5.2 L Albumin 2.5 L Globulin 2.7 Albumin/Globulin Ratio 0.9 L Triglycerides 80 Cholesterol 104 L LDL Cholesterol, Calc 53 HDL Cholesterol 35 L Cholesterol/HDL Ratio 3.0 L ABG Interpretation ABG results: 02/19/25 18:52 ABG pH 7.41 ABG pCO2 36 ABG pO2 72 L ABG HCO3 23 ABG O2 Saturation 95 ABG Base Excess -2 Quality Measures Quality Measures VTE prophylaxis Advance care planning discussed with:: patient Assessment & Plan Assessment Current Active Medications: Generic Name Dose Route Start Last Admin Trade Name Freq PRN Reason Stop Dose Admin Acetaminophen 650 mg 02/20/25 02:06 Acetaminophen 325 Mg Tablet PO 03/22/25 02:05 Q6H PRN Fever >100.3 or pain 1-3 Apixaban 2.5 mg 02/20/25 09:00 02/20/25 09:14 Apixaban 2.5 Mg Tablet PO 03/22/25 08:59 2.5 mg BID ALBINA Administration Atorvastatin Calcium 40 mg 02/20/25 21:00 02/20/25 21:58 Atorvastatin Calcium 20 Mg Tablet PO 03/22/25 20:59 40 mg HS ALBINA Administration Buspirone HCl 7.5 mg 02/20/25 06:00 02/21/25 05:23 Buspirone Hcl 5 Mg Tablet PO 03/22/25 05:59 7.5 mg TID ALBINA Administration Collagenase 0 gm 02/21/25 10:45 Collagenase Oint 30 Gm Tube TOP 03/23/25 10:44 QDAY ALBINA Digoxin 0.25 mg 02/21/25 12:00 Digoxin 0.125 Mg Tablet PO 02/21/25 12:01 X1 ONE Digoxin 0.25 mg 02/21/25 18:00 Digoxin 0.125 Mg Tablet PO 02/23/25 17:59 Q6HR ALBINA Vancomycin/Sodium Chloride 200 mls @ 120 mls/hr 02/21/25 10:00 02/21/25 09:01 Vancomycin/Ns 1 Gm Ivpb IV 02/28/25 09:59 120 mls/hr Q12H ALBINA Administration Ceftriaxone Sodium/Dextrose 2 gm in 50 mls @ 100 mls/hr 02/21/25 21:00 Rocephin/D5w 2gm IV 02/27/25 20:59 HS ALBINA Levothyroxine Sodium 100 mcg 02/20/25 06:00 02/21/25 05:23 Levothyroxine Sodium 100 Mcg Tablet PO 03/22/25 05:59 100 mcg ACBR ALBINA Administration Magnesium Hydroxide 30 ml 02/20/25 02:06 Milk Of Magnesia Susp 30 Ml Udc PO 03/22/25 02:05 QDAY PRN CONSTIPATION Protocol Melatonin 3 mg 02/20/25 16:53 Melatonin 3 Mg Tablet PO 03/22/25 20:59 HS PRN anxiety Ondansetron HCl 4 mg 02/20/25 02:06 Ondansetron Inj 2 Mg/Ml Inj 2 Ml IV 03/22/25 02:05 Q6H PRN NAUSEA OR VOMITING Protocol Oxycodone/Acetaminophen 1 tab 02/20/25 02:06 Oxycodone/Apap 5/325 Tablet PO 02/25/25 02:05 Q6H PRN PAIN SCALE 4-6 (Moderate Pharmacy Consult 1 each 02/20/25 09:00 Vancomycin Pharmacy To Dose 1 Each Each IV 03/22/25 08:59 QDAY PRN CONSULT Sennosides 1 tab 02/20/25 02:06 Senna Tablet PO 03/22/25 02:05 QDAY PRN constipation Protocol Sertraline HCl 150 mg 02/20/25 09:00 02/21/25 09:01 Sertraline Hcl 25 Mg Tablet PO 03/22/25 08:59 150 mg QDAY ALBINA Administration Plan Patient is an 84-year-old female with a past medical history of hypertension, hyperlipidemia, atrial fibrillation (Eliquis), Pulmonary HTN, hypothyroidism, SARAH, and anemia of chornic disease who was admitted on for sepsis secondary to soft tissue infection and CAP. 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 Surgery consulted, medical management recommended at this time. Plan: -MRI pelvis pending -Ceftriaxone 2 grams and Vancomycin 02/19/2025 -Wound care -consider wound culture, but likely will be poor sample given location -General Surgery Consulted, Dr. Nguyen, appreciate recommendations #Sepsis secondary CAP w/ bilateral pleural effusion #Acute hypoxic respiratory failure #CAP, likely GPC #Bibasilar pneumonia w/ bilateral moderate bilateral pleural effusion Patient presented with acute hypoxic respiratory failure, requiring oxygen as patient spO2 as low as 62% requiring addition oxygen support in the ER on nasal canual of 4 liters. Patient was noted to have bibasilar pneumoina with bilateral moderate plerual effusion. Likely secondary to community acquired pneumonia GPC. Previous imagining did not show pleural effusion. Meeting SIRs criteria: tachycardia, tachypenia, elevated WBC count w/ source of infection. Lactic acid 2.4-->1.7 DDx: Aspiration can not be rule out. Viral less likely as flu and covid negative vs Less likely malignancy as family denied any weight loss but patient has had decreased appetite over the last 3 days. CTA chest negative w/ elevated D-Dimers likely secondary to infectious process. 02/21/2025-insufficient pleural fluid for thoracentesis SOFA 2 Plan -Ceftriaxone 2 gm Qday (covering osteo as well) 02/19/2025 -Cocci IgM negative and IgG pending -Blood Cutlure Negative 24 Hours -Sputum ordered, not collected. -Ensure protein -consider small bolus of 250 if BP drops #Atrial Fibrillation #Atrial Fibrillation, w/ rvr, resolved. Patient has a past medical history of atrial Fibrillation rate controlled previously on Carvedilol which was D/C last year and remained on Eliquis 2.5 BID. Atrial fibrillation likley triggered by pneumonia versus soft tissue infection Plan -Digoxin loading dose 0.25 mg X 1, followed by 0.25 Q6 HR day one; 0.25 mg next two day and then 0.125 there after -Digoxin levels AM -Ditiazem 60 mg TID (hold if systolic BP <100), STOPPED -Resumed Eliquis 2.5 mg BID #Restrictive Cardiomyopathy #Severe Pulmonary HTN #History Hypertension Patient has a past medical history of hypertension with systolic blood pressures <140 and no anti-hypertensives in medication list. Currently holding off on blood pressure medication given soft blood pressure. Echo 2023: EF 60-65%, RVSP 65, Severe PAH Restrictive Cardiomyopathy . Moderate to Severe TR Plan -Monitor Blood Pressure #Hyperlipidemia Home medication of Pravastatin 40 mg HS. 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 Plan -Resume home medication Levothyroxine 100 mg ACBR #Cholelithiasis CT abdomen/pelvis CT noted to have a common bile duct 14 mm and follow up us of gallbladder showing multiple stones and common bile duct 0.9, thus less choledocholithiasis. Chilel's sign negative w/ soft abdomen. Plan -continue to trend AST/ALT -Surgery Consulted, Dr. Nguyen, no surgical intervention planned. #History of Anxiety Continue home medication of Sertraline and Busprione. Plan -Continue Sertraline 150 mg qday and Buspirone 7.5 mg TID -Melatonin HS PRN #Moderate hepatomegaly, noted on CT abdomen Health Maintenance: Disp: Pt is currently admitted to floors for further management of sepsis secondary to soft tissue infection, awaiting wound care and blood cultures and thoracentesis FEN: Dysphagia 2 DVT: Eliquis 2.5 mg BID and Compression Device Code: DNR - The patient's plan was discussed with attending Dr. Irma Peterson MD PGY1 Internal Medicine Attending Provider Attestation/Addendum I reviewed labs, imaging, EKG, home medications and prior available records. Face to face evaluation was performed by me. I have personally examined the patient and discussed assessment and plan with the IM team. I reviewed the resident note and agree with the plan with exceptions as below. Sepsis secondary to pneumonia Osteomyelitis of sacrum Atrial fibrillation with RVR Decubitus ulcer of sacrum, unstageable Bilateral pleural effusions Continue vancomycin/Zosyn Continue wound care Consulted IR for pleurocentesis. Dangerous to do given that he is close to heart Pelvic MRI Heart rate improved. Consulted cardiology: Recommended starting digoxin. Stopped diltiazem Ordered echocardiogram Consulted surgery Ordered PT evaluation
--- NOTE | 2025-02-21 13:22 | ESPR_ITS ---
RE: KIM PARADA : 1940 DATE OF SERVICE: 02/21/2025 S: Ms. Parada is resting fairly comfortably in bed this morning. The patient is breathing fairly well. Denies any complaint of chest pain. Denies any complaints of skipped beats or palpitations. O: Vital Signs: The patient's blood pressure has been staying on the lower side and earlier this morning the blood pressure was 107/72, pulse rate was 82 per minute, though irregularly irregular. Temperature is 97.5. Oximetry saturation is 95% on room air. Respiratory rate is 18. Heart: Irregularly irregular heart rhythm. Heart rate is staying in atrial fibrillation with moderate ventricular response and intermittent periods of faster response to the atrial fibrillation. Lungs: Few basal rhonchi. Abdomen: Soft. No organomegaly. Extremities: No pedal edema is noted. Laboratory Data: This morning showed WBC count is 11,300, hemoglobin is 10.7 with a hematocrit of 32.0. The patient's BUN this morning is 8, creatinine 0.4, potassium level is 4.0. AST level is better than before and is 73. ALT level is down to normal. Alkaline phosphatase level is also normal. Bilirubin is also down to normal. P: Patient's diltiazem has been withheld because of the patient's blood pressure being on the slower side. Plan to start the patient on digoxin to control the rate with atrial fibrillation and diltiazem will be discontinued. Rest of the medications will be continued as before. Cardiac echo Doppler study is still awaited and will be reviewed once done. DT: 13:05:39 TT: 13:21:00 Ref: [id number] - TID: [id number]
[2025-02-21] MEDS: DIGOXIN 0.125 MG TABLET 0.25 MG PO ×2 (14:01→21:50)
[2025-02-21 14:29] LABS: Cocci Serology, IgM Negative (Negative)
--- NOTE | 2025-02-21 17:27 | PC.RT ---
sputum sample cup left at pt bedside, pt understands instructions, will try to produce a sample before being induced.
[2025-02-21] MEDS: ATORVASTATIN CALCIUM 20 MG TABLET 40 MG PO (21:51)
[2025-02-21] MEDS: MELATONIN 3 MG TABLET PO (21:51)
[2025-02-21] MEDS: APIXABAN 2.5 MG TABLET PO (21:51)
[2025-02-21] MEDS: cefTRIAXone/D5w 2gm 2 GM/50 ML BAG IV (21:52)
[2025-02-21 22:32] LABS: Vancomycin,Trough 25.1 mcg/mL (5.0-10.0)
[2025-02-22] VITALS (10 sets, daily range): BP systolic 109–148; BP diastolic 61–90; PULSE 70–110; RESP 10–22; TEMP 36.1–36.6; O2SAT 94–100; BMI 23.1
--- NOTE | 2025-02-22 | XR_ITS ---
Examination: MRI pelvis, without contrast Date and time of exam: February 22, 2025 0915 hours Technique: Multiple axial sagittal and coronal images of the pelvis have been obtained with the Siemens high-resolution 1.5 Lauren MRI scanner. Images obtained include T2-weighted fat-suppressed sagittal sections, TR 3500, TE 46, T2 weighted coronal fat suppressed images, TR 3050, TE 84, T2-weighted transverse fat suppressed images, TR 3260, TE 63, proton density transverse images, TR 4720 TE 46, and T1 weighted coronal images, TR 560, TE 13. Findings: All of the images are severely degraded by patient motion Abundant stool in the rectum There is no diagnostic visualization of pelvic contents IMPRESSION: Nondiagnostic study
--- NOTE | 2025-02-22 02:40 | XR_ITS ---
MRI abdomen, without contrast. MRCP Date and time of exam: February 22, 2025 0857 hours INDICATIONS: Abdominal pain, history sacral ulcer Technique: Multiple axial and coronal images of the abdomen have been obtained with the Siemens 1.5T MRI scanner. Images obtained included T1 weighted transverse images, T2-weighted transverse images, T2-weighted transverse images fat-suppressed, T2 weighted haste fat suppressed transverse images, T1 weighted images, in and out of phase images, T2-weighted coronal images, breath hold, T2 weighted haze coronal images as well as T2 weighted coronal thick slab images, MRCP. Findings: Bibasilar pneumonia with pleural fluid No focal liver lesion Gallbladder is not visualized Common hepatic duct 10 mm no common bile duct or common hepatic duct stones Pancreatic duct is not dilated No pancreatic mass Trace free fluid about the liver and spleen Aorta normal size Large retrocardiac gastric hernia No hydronephrosis IMPRESSION: The common hepatic duct 10 mm but no common bile duct or common hepatic duct stones No focal liver lesions No pancreatic mass or peripancreatic edema Minimal free fluid adjacent to the liver and spleen No hydronephrosis
[2025-02-22] MEDS: DIGOXIN 0.125 MG TABLET 0.25 MG PO ×2 (03:45→10:38)
[2025-02-22] MEDS: BusPIRone HCL 5 MG TABLET 7.5 MG PO ×2 (05:09→21:02)
[2025-02-22] MEDS: LEVOTHYROXINE SODIUM 100 MCG TABLET PO (05:09)
[2025-02-22 08:52] LABS: Basophils % (Auto) 0 % (0-2.5); Eosinophils # (Auto) 0.1 Thou/mm3 (0.0-0.5); Eosinophils % (Auto) 1 % (0-10); Hematocrit 35.6 % (36.0-46.0); Hemoglobin 12.1 g/dL (12.0-16.0); Immature Granulocytes % (Auto) 0 % (0-0); Immature Granulocytes Auto 0.05 Thou/mm3 (0.00-0.00); Lymphocytes % (Auto) 16 % (10-50); Mean Corpuscular Hemoglobin 29.7 pg (25.0-35.0); Mean Corpuscular Volume 88 fL (80-100); Monocytes # (Auto) 0.8 Thou/mm3 (0.0-0.8); Monocytes % (Auto) 6 % (0-12); Neutrophils % (Auto) 77 % (37-80); Nucleated Red Blood Cell % 0 /100 WBC (0); Platelet Count 323 Thou/mm3 (140-440); RDW Standard Deviation 56.9 fL (36.4-46.3); Red Blood Count 4.07 Miln/mm3 (4.00-5.20)
[2025-02-22 09:38] LABS: Alanine Aminotransferase 40 U/L (10-49); Albumin, Serum 2.9 gm/dL (3.4-4.8); Alkaline Phosphatase 75 U/L (46-116); Anion Gap 3 (7-16); Aspartate Amino Transferase 74 U/L (0-34); BUN/Creatinine Ratio 18 Ratio (12-20); Bilirubin,Total 0.7 mg/dL (0.3-1.2); Blood Urea Nitrogen 9 mg/dL (9-23); Calcium (Corrected) 8.9 mg/dL (8.5-10.1); Carbon Dioxide 24.7 mMol/L (20.0-31.0); Chloride 107 mMol/L (98-107); Creatinine (Component) 0.5 mg/dL (0.6-1.3); Glucose 66 mg/dL (74-106); Osmolality,Calculated 266 (275-295); Potassium 3.4 mMol/L (3.4-5.1); Sodium 135 mMol/L (136-145); Total Protein 5.9 gm/dL (5.7-8.2); eGFR > 60 See Note
[2025-02-22] MEDS: APIXABAN 2.5 MG TABLET PO ×2 (10:36→21:03)
[2025-02-22] MEDS: SENNA TABLET 1 TAB PO (10:37)
[2025-02-22] MEDS: SERTRALINE HCL 25 MG TABLET 150 MG PO (10:37)
[2025-02-22] MEDS: COLLAGENASE OINT 30 GM TUBE TOP (10:39)
[2025-02-22] MEDS: POTASSIUM CHLORIDE 10% 20 MEQ/15 ML UDC 40 MEQ PO (10:49)
--- NOTE | 2025-02-22 10:59 | CHAP ---
Patient was visited by a Spiritual Care Volunteer on 02/22/2025 between 904 and 929 and received comfort, encouragement and/or prayer.
--- NOTE | 2025-02-22 12:36 | ESPR_ITS ---
RE: KIM PARADA : 1940 DATE OF SERVICE: 02/22/2025 S: Ms. Kim Parada is resting comfortably in bed. The patient is breathing well. Denies any complaint of chest pain. Denies any complaints of skipped beats or palpitations. The patient is not having any symptoms of fever or chills or abdominal pain. O: Vital Signs: The patient's blood pressure this morning is 138/63, the pulse rate is 85 per minute and irregularly irregular. Temperature is 97.3. Respiratory rate is 16 per minute. The patient's oximetry saturation is 100% on 2 liters of oxygen by nasal cannula. Heart: Irregularly irregular heart rhythm. Lungs: Few basal rhonchi. Abdomen: Soft. No organomegaly is noted. Extremities: No pedal edema is noted. Laboratory Data: Today showed WBC count is 13,000, hemoglobin is 12.1 with hematocrit of 35.6. The patient's BUN today is 9, creatinine 0.5, potassium level is 3.4. The patient's AST level is 74, ALT is 40, bilirubin is 0.7, and alkaline phosphatase is 75. P: The heart rhythm is staying in atrial fibrillation with controlled ventricular response and the patient was started on p.o. digoxin yesterday. Plan to continue the patient on all present medications and general supportive care. Maintenance dose of digoxin will be started after the loading dose. Cardiac echo Doppler study is still awaited and will be reviewed once done. DT: 12:03:18 TT: 12:35:00 Ref: [id number] - TID: [id number]
[2025-02-22 14:15] LABS: Cocci Serology, IgG Negative (Negative)
--- NOTE | 2025-02-22 14:54 | PC.SS ---
Rounding Note: Patient in possession of wounds. Pending decision on IV antibiotics.
--- NOTE | 2025-02-22 16:00 | ESPR_ITS ---
Documentation for date of: 02/22/25 Subjective Subjective Interval history: NO overnight events for patient. Patient scheduled for MRI pelvis. Thoracentesis unable to be obtained given decreased fluid. PT scheduled as family would like a short course of SNF. Pending recs form infectious disease for osteo. Exam Vital Signs Temp Pulse Resp BP Pulse Ox O2 Del Method O2 Flow Rate 96.9 F 89 19 125/71 94 L Nasal Cannula 2 02/22/25 20:00 02/22/25 20:00 02/22/25 20:00 02/22/25 20:00 02/22/25 20:00 02/22/25 16:00 02/22/25 16:00 Narrative Exam General Appearance: Alert & Oriented X2, well-nourished female who is lying in bed in mild discomfort when patient was rolled over to appreciate ulcer. Ulcer is foul smelling and appears to a purulent discharge. HEENT: Skull symmetrical and atraumatic. Conjunctivae pin and moist. Pupils equal, round, reactive to light and accommodation (PERRL). External ear without lesion or discharge. Straight, nares patient, mucosa pink, no discharge. No thyroid nodule appreciated. No cervical lymphadenopathy. Cardio: Normal Rate and Rhythm with S1 and S2 heart sounds. No murmurs or extra heart sounds auscultated. No bruits on carotid auscultation. No peripheral edema or cyanosis. Lungs: Symmetric with good expansion. Chest and back non-tender. Breath sounds vesicular with rhonchi Abdomen: Non-tender, Non-distended, Normal Reactive Bowel Sounds, Negative Chilel's sign. Neuro: Yes Alert, cooperative, oriented to person, place, and time. Speech clear. CN grossly intact. Upper motor strength 5/5 and Lower motor strength 5/5. Sensation intact. Objective Labs 02/23/25 05:55 02/23/25 05:55 Labs: Laboratory Results - last 24 hr 02/21/25 02/21/25 02/22/25 05:37 21:49 08:01 WBC 13.0 H RBC 4.07 Hgb 12.1 Hct 35.6 L MCV 88 MCH 29.7 MCHC 34.0 RDW Std Deviation 56.9 H Plt Count 323 D Neut % (Auto) 77 Lymph % (Auto) 16 Ransom % (Auto) 6 Eos % (Auto) 1 Baso % (Auto) 0 Neut # (Auto) 10.0 H Lymph # (Auto) 2.0 Ransom # (Auto) 0.8 Eos # (Auto) 0.1 Baso # (Auto) 0.0 Immature Gran # (Auto) 0.05 H Absolute Nucleated RBC 0.00 Immature Gran % 0 Nucleated RBC % 0 Sodium 135 L Potassium 3.4 D Chloride 107 Carbon Dioxide 24.7 Anion Gap 3 L BUN 9 Creatinine 0.5 L Estim Creat Clear Calc 58.0 L eGFR > 60 BUN/Creatinine Ratio 18 Glucose 66 L Calculated Osmolality 266 L Calcium 8.0 L Corrected Calcium 8.9 Phosphorus 2.0 L Magnesium 2.0 Total Bilirubin 0.7 AST 74 H ALT 40 Alkaline Phosphatase 75 Total Protein 5.9 Albumin 2.9 L Globulin 3.0 Albumin/Globulin Ratio 1.0 L Vancomycin Trough 25.1 H* Digoxin 2.0 Coccidioides IgG Ab Negative ABG Interpretation ABG results: 02/19/25 18:52 ABG pH 7.41 ABG pCO2 36 ABG pO2 72 L ABG HCO3 23 ABG O2 Saturation 95 ABG Base Excess -2 Quality Measures Quality Measures VTE prophylaxis Advance care planning discussed with:: patient and child Assessment & Plan Assessment Current Active Medications: Generic Name Dose Route Start Last Admin Trade Name Freq PRN Reason Stop Dose Admin Acetaminophen 650 mg 02/20/25 02:06 Acetaminophen 325 Mg Tablet PO 03/22/25 02:05 Q6H PRN Fever >100.3 or pain 1-3 Apixaban 2.5 mg 02/20/25 09:00 02/22/25 21:03 Apixaban 2.5 Mg Tablet PO 03/22/25 08:59 2.5 mg BID ALBINA Administration Atorvastatin Calcium 40 mg 02/20/25 21:00 02/22/25 21:02 Atorvastatin Calcium 20 Mg Tablet PO 03/22/25 20:59 40 mg HS ALBINA Administration Buspirone HCl 7.5 mg 02/20/25 06:00 02/22/25 21:02 Buspirone Hcl 5 Mg Tablet PO 03/22/25 05:59 7.5 mg TID ALBINA Administration Collagenase 0 gm 02/21/25 10:45 02/22/25 10:39 Collagenase Oint 30 Gm Tube TOP 03/23/25 10:44 1 applicatio QDAY ALBINA Administration Digoxin 0.25 mg 02/23/25 09:00 Digoxin 0.125 Mg Tablet PO 02/24/25 09:01 QDAY ALBINA Digoxin 0.125 mg 02/23/25 09:00 Digoxin 0.125 Mg Tablet PO 03/25/25 08:59 QDAY ALBINA Ceftriaxone Sodium/Dextrose 2 gm in 50 mls @ 100 mls/hr 02/21/25 21:00 02/22/25 21:03 Rocephin/D5w 2gm IV 02/27/25 20:59 100 mls/hr HS ALBINA Administration Levothyroxine Sodium 100 mcg 02/20/25 06:00 02/22/25 05:09 Levothyroxine Sodium 100 Mcg Tablet PO 03/22/25 05:59 100 mcg ACBR ALBINA Administration Magnesium Hydroxide 30 ml 02/20/25 02:06 Milk Of Magnesia Susp 30 Ml Udc PO 03/22/25 02:05 QDAY PRN CONSTIPATION Protocol Melatonin 3 mg 02/20/25 16:53 02/22/25 21:04 Melatonin 3 Mg Tablet PO 03/22/25 20:59 3 mg HS PRN Administration anxiety Ondansetron HCl 4 mg 02/20/25 02:06 Ondansetron Inj 2 Mg/Ml Inj 2 Ml IV 03/22/25 02:05 Q6H PRN NAUSEA OR VOMITING Protocol Oxycodone/Acetaminophen 1 tab 02/20/25 02:06 Oxycodone/Apap 5/325 Tablet PO 02/25/25 02:05 Q6H PRN PAIN SCALE 4-6 (Moderate Pharmacy Consult 1 each 02/20/25 09:00 Vancomycin Pharmacy To Dose 1 Each Each IV 03/22/25 08:59 QDAY PRN CONSULT Sennosides 1 tab 02/22/25 09:00 02/22/25 10:37 Senna Tablet PO 03/24/25 08:59 1 tab QDAY ALBINA Administration Protocol Sertraline HCl 150 mg 02/20/25 09:00 02/22/25 10:37 Sertraline Hcl 25 Mg Tablet PO 03/22/25 08:59 150 mg QDAY ALBINA Administration Plan Patient is an 84-year-old female with a past medical history of hypertension, hyperlipidemia, atrial fibrillation (Eliquis), Pulmonary HTN, hypothyroidism, SARAH, and anemia of chornic disease who was admitted on for sepsis secondary to soft tissue infection and CAP. 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 No surgical intervention at this time. MRI nondiagnostic as patient cotinued to move. PT-->recommending rufus lift for home if SNF denied. Pending reccs from ID. Plan: -Ceftriaxone 2 grams and Vancomycin 02/19/2025 -Wound care -consider wound culture, but likely will be poor sample given location -Add AM: Vitmain C 500 mg BID, Zinc Sulfate 220 once daily for 14 days -Consult ID, DR. Pierce, appreciate recommendations. -General Surgery Consulted, Dr. Nguyen, appreciate recommendations #Bibasilar pneumonia w/ bilateral moderate bilateral pleural effusion #Community Acquired Pneumonia #Sepsis secondary CAP w/ bilateral pleural effusion , resolved #Acute hypoxic respiratory failure, improved Patient presented with acute hypoxic respiratory failure, requiring oxygen as patient spO2 as low as 62% requiring addition oxygen support in the ER on nasal canual of 4 liters. Patient was noted to have bibasilar pneumoina with bilateral moderate plerual effusion. Likely secondary to community acquired pneumonia GPC. Previous imagining did not show pleural effusion. Meeting SIRs criteria: tachycardia, tachypenia, elevated WBC count w/ source of infection. Lactic acid 2.4-->1.7 DDx: Aspiration can not be rule out. Viral less likely as flu and covid negative vs Less likely malignancy as family denied any weight loss but patient has had decreased appetite over the last 3 days. CTA chest negative w/ elevated D-Dimers likely secondary to infectious process. 02/21/2025-insufficient pleural fluid for thoracentesis 02/22/2025: blood culture negative after 48 hours, no sputum culture collected. Cocci IgM/IgG negative SOFA 2 Plan -Ceftriaxone 2 gm Qday (covering osteo as well) 02/19/2025 -Cocci IgM negative and IgG pending -Ensure protein -consider small bolus of 250 if BP drops #Atrial Fibrillation #Atrial Fibrillation, w/ rvr, resolved. Patient has a past medical history of atrial Fibrillation rate controlled previously on Carvedilol which was D/C last year and remained on Eliquis 2.5 BID. Atrial fibrillation likley triggered by pneumonia versus soft tissue infection Plan -Digoxin 0.125 -Digoxin levels AM -Resumed Eliquis 2.5 mg BID #Restrictive Cardiomyopathy #Severe Pulmonary HTN #History Hypertension Patient has a past medical history of hypertension with systolic blood pressures <140 and no anti-hypertensives in medication list. Currently holding off on blood pressure medication given soft blood pressure. Echo 2023: EF 60-65%, RVSP 65, Severe PAH Restrictive Cardiomyopathy . Moderate to Severe TR Plan -Monitor Blood Pressure #Hyperlipidemia Home medication of Pravastatin 40 mg HS. 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 Plan -Resume home medication Levothyroxine 100 mg ACBR #Cholelithiasis CT abdomen/pelvis CT noted to have a common bile duct 14 mm and follow up us of gallbladder showing multiple stones and common bile duct 0.9, thus less choledocholithiasis. Chilel's sign negative w/ soft abdomen. MRCP common hepatic bile duct 10 mm but no common bile duct or common hepatic duct stones. Plan -continue to trend AST/ALT -Surgery Consulted, Dr. Nguyen, no surgical intervention planned. #History of Anxiety Continue home medication of Sertraline and Busprione. Plan -Continue Sertraline 150 mg qday and Buspirone 7.5 mg TID -Melatonin HS PRN #Asymtomatic Bacteruiria Urine culture positive with E. coli, denied dysuria or increased frequency. Non- tender supra-pubic region. Plan -dual coverage with ceftriaxone for osteo #Moderate hepatomegaly, noted on CT abdomen Health Maintenance: Disp: Pt is currently admitted to floors for further management of sepsis secondary to soft tissue infection, awaiting wound care and blood cultures and thoracentesis FEN: Diet cardiac, ensure plus high protien, Judson DVT: Eliquis 2.5 mg BID and Compression Device Code: DNR - The patient's plan was discussed with attending Dr. Irma Peterson MD PGY1 Internal Medicine Attending Provider Attestation/Addendum I reviewed labs, imaging, EKG, home medications and prior available records. Face to face evaluation was performed by me. I have personally examined the patient and discussed assessment and plan with the IM team. I reviewed the resident note and agree with the plan with exceptions as below. Sepsis secondary to pneumonia Possible osteomyelitis of sacrum Acute E. coli UTI Atrial fibrillation with RVR Decubitus ulcer of sacrum, unstageable Bilateral pleural effusions Continue IV ceftriaxone Continue wound care Consulted IR for pleurocentesis. Dangerous to do given that he is close to heart Ordered MRCP that showed no common bile duct stones Pelvic MRI: Nondiagnostic study given the significant motion however showed significant stool amount. Ordered oil enema Heart rate improved. Consulted cardiology: Recommended starting digoxin. Stopped diltiazem Ordered echocardiogram Consulted surgery Ordered PT evaluation: Recommended SNF. Discussed with social science manager
--- NOTE | 2025-02-22 17:04 | PC.SS ---
STRAIGHT LINE EDGER confirmed with patient's family plan to transition patient to short term SNF. Preferred choice is [facility]. STRAIGHT LINE EDGER informed patient's daughter that authorization would need to be obtained for placement. PT note pending.
--- NOTE | 2025-02-22 17:05 | PC.SS ---
BUSINESS AND FINANCIAL COUNSEL submitted SNF referral on [facility]. Responses are pending.
--- NOTE | 2025-02-22 17:15 | PC.SS ---
PASSR completed. Patient meets Level II criteria. PASSR follow up is pending.
--- NOTE | 2025-02-22 18:02 | ECHO_ITS ---
Transthoracic Echo Report Ht (in): 57 Wt (lb): 109 Exam Location: Echo Lab Status: Inpatient Domestic Violence Advocate: Amairani Garza Indications: Procedure Performed: BP: 114 / 71 HR: 84 Technical Quality: Technically difficult study MEASUREMENTS (Male / Female) Normal Values 2D ECHO LV Diastolic Diameter PLAX 3.6 cm 4.2 - 5.9 / 3.9 - 5.3 cm LV Systolic Diameter PLAX 2.8 cm IVS Diastolic Thickness 1.0 cm 0.6 - 1.0 / 0.6 - 0.9 cm LVPW Diastolic Thickness 1.0 cm 0.6 - 1.0 / 0.6 - 0.9 cm LV Relative Wall Thickness 0.5 LVOT Diameter 1.2 cm LV Ejection Fraction MOD BP 39.8 % >= 55 % LV Cardiac Index MOD BP 1182.4 cm?/min?m? LV Ejection Fraction MOD 4C 48.9 % LV Cardiac Index MOD 4C 1081.9 cm?/min?m? LV Ejection Fraction 4C AL 52.3 % LV Cardiac Index 4C AL 1187.4 cm?/min?m? LV Ejection Fraction MOD 2C 29.2 % LV Cardiac Index MOD 2C 1028.7 cm?/min?m? LV Ejection Fraction 2C AL 31.5 % LV Cardiac Index 2C AL 1144.6 cm?/min?m? LA Volume Index 65.7 cm?/m? 16 - 28 cm?/m? M-MODE Aortic Root Diameter MM 2.6 cm AV Cusp Separation MM 1.4 cm DOPPLER AV Peak Velocity 93.3 cm/s AV Peak Gradient 3.5 mmHg AV Mean Gradient 2.0 mmHg AV Velocity Time Integral 20.1 cm AI Peak Velocity 266.0 cm/s AI Peak Gradient 28.3 mmHg AI Pressure Half Time 672.0 ms LVOT Peak Velocity 72.4 cm/s LVOT Peak Gradient 2.1 mmHg LVOT Velocity Time Integral 14.2 cm LVOT Cardiac Index 949.4 cm?/min?m? AV Area Cont Eq vti 0.8 cm? AV Area Cont Eq pk 0.9 cm? MV Area PHT 4.9 cm? MR Peak Velocity 264.0 cm/s MR Peak Gradient 27.9 mmHg Mitral E Point Velocity 87.8 cm/s LV E' Lateral Velocity 6.5 cm/s Mitral E to LV E' Lateral Ratio 13.4 LV E' Septal Velocity 8.5 cm/s Mitral E to LV E' Septal Ratio 10.3 TR Peak Velocity 307.0 cm/s TR Peak Gradient 37.7 mmHg PV Peak Velocity 84.2 cm/s PV Peak Gradient 2.8 mmHg FINDINGS Left Ventricle Normal left ventricular size, wall thickness, systolic function with no obvious regional wall motion abnormalities. Normal left ventricular diastolic filling pattern for age. The ejection fraction is visually estimated at 50-55%. Right Ventricle The right ventricle is normal in size. The right ventricular systolic function is mildly decreased. Left Atrium Severely increased left atrial volume 65.7 mL/m?. Right Atrium The right atrial cavity size is moderately increased. Atrial Septum The interatrial septum appears normal with no evidence of a shunt. Aorta The aorta is normal by two-dimensional, color flow and Doppler interrogation. Mitral Valve Mild mitral regurgitation. Mild mitral annular calcification. Aortic Valve Moderate aortic valve regurgitation. Tricuspid Valve There is mild tricuspid valve regurgitation. Pulmonic Valve The pulmonic valve is not well visualized. There is no significant pulmonic valve regurgitation. Vessels Inferior vena cava not well visualized. Pericardium The pericardium is normal by two-dimensional imaging. There is no significant pericardial effusion. CONCLUSIONS Indication. A Fib Normal LV size and function. Estimated EF 50-55%. RV is normal in size. The RV systolic function is mildly decreased. Severely increased LA volume 65.7 mL/m?. RA cavity size is moderately increased. Mild MR and TR. Mild MAC. Moderate AI. IVC not well visualized. Neo Witt (Electronically Signed) Final Date: 23 February 2025 14:42
[2025-02-22] MEDS: ATORVASTATIN CALCIUM 20 MG TABLET 40 MG PO (21:02)
[2025-02-22] MEDS: cefTRIAXone/D5w 2gm 2 GM/50 ML BAG IV (21:03)
[2025-02-22] MEDS: MELATONIN 3 MG TABLET PO (21:04)
[2025-02-23] VITALS (8 sets, daily range): BP systolic 109–135; BP diastolic 61–82; PULSE 69–105; RESP 12–20; TEMP 36.1–36.4; O2SAT 92–100
--- NOTE | 2025-02-23 00:30 | PC.NURSE ---
02/22/25 2340 Will, RN taking over pt. care SBAR given
[2025-02-23] MEDS: LEVOTHYROXINE SODIUM 100 MCG TABLET PO (05:15)
[2025-02-23] MEDS: BusPIRone HCL 5 MG TABLET 7.5 MG PO ×3 (05:15→21:20)
[2025-02-23 06:48] LABS: Basophils % (Auto) 0 % (0-2.5); Eosinophils # (Auto) 0.2 Thou/mm3 (0.0-0.5); Eosinophils % (Auto) 2 % (0-10); Hemoglobin 11.2 g/dL (12.0-16.0); Immature Granulocytes % (Auto) 1 % (0-0); Immature Granulocytes Auto 0.06 Thou/mm3 (0.00-0.00); Lymphocytes # (Auto) 1.6 Thou/mm3 (1.0-4.8); Lymphocytes % (Auto) 16 % (10-50); Mean Corpuscular HGB Conc 33.9 g/dl (31.0-37.0); Mean Corpuscular Hemoglobin 30.2 pg (25.0-35.0); Mean Corpuscular Volume 89 fL (80-100); Monocytes # (Auto) 0.9 Thou/mm3 (0.0-0.8); Monocytes % (Auto) 9 % (0-12); Neutrophils # (Auto) 7.2 Thou/mm3 (1.8-7.7); Neutrophils % (Auto) 73 % (37-80); Nucleated Red Blood Cell % 0 /100 WBC (0); Platelet Count 274 Thou/mm3 (140-440); RDW Standard Deviation 57.6 fL (36.4-46.3); Red Blood Count 3.71 Miln/mm3 (4.00-5.20); White Blood Count 9.9 Thou/mm3 (3.6-11.0)
[2025-02-23 07:14] LABS: Alanine Aminotransferase 32 U/L (10-49); Albumin, Serum 2.5 gm/dL (3.4-4.8); Alkaline Phosphatase 61 U/L (46-116); Anion Gap 7 (7-16); Aspartate Amino Transferase 65 U/L (0-34); BUN/Creatinine Ratio 15 Ratio (12-20); Bilirubin,Total 0.7 mg/dL (0.3-1.2); Blood Urea Nitrogen 6 mg/dL (9-23); Calcium 7.7 mg/dL (8.3-10.6); Calcium (Corrected) 8.9 mg/dL (8.5-10.1); Carbon Dioxide 24.3 mMol/L (20.0-31.0); Chloride 107 mMol/L (98-107); Creatinine (Component) 0.4 mg/dL (0.6-1.3); Globulin 2.6 gm/dL (2.3-3.5); Glucose 71 mg/dL (74-106); Magnesium 1.8 mg/dL (1.6-2.6); Osmolality,Calculated 271 (275-295); Phosphorous 2.1 mg/dL (2.4-5.1); Potassium 4.1 mMol/L (3.4-5.1); Sodium 138 mMol/L (136-145); Total Protein 5.1 gm/dL (5.7-8.2); Vancomycin,Random 13.4 mcg/mL; eGFR > 60 See Note
[2025-02-23 07:20] LABS: Digoxin 3.3 ng/mL (0.8-2.0)
[2025-02-23] MEDS: SERTRALINE HCL 25 MG TABLET 150 MG PO (08:55)
[2025-02-23] MEDS: ASCORBIC ACID 250 MG TABLET 500 MG PO ×2 (08:56→20:46)
[2025-02-23] MEDS: SENNA TABLET 1 TAB PO (08:56)
[2025-02-23] MEDS: ZINC SULFATE 220 MG CAPSULE PO (08:56)
[2025-02-23] MEDS: APIXABAN 2.5 MG TABLET PO ×2 (08:56→20:45)
--- NOTE | 2025-02-23 09:03 | PC.SS ---
CHEMICAL RECLAMATION EQUIPMENT OPERATOR conducted bedside contact with the patient conduct initial assessment and to discuss discharge planning.? At bedside with patient was daughter, Teagan Montanez .? Information provided by patient?s daughter.? CHEMICAL RECLAMATION EQUIPMENT OPERATOR utilized event staff member.? Patient resides at home with daughter.? Patient is non ambulatory.? Patient does not utilize home oxygen.? Patient requires assistance with completion of ADL?s.? Patient?s daughter assist patient with completion of ADL?s.? Patient?s daughter confirmed plan to apply for [employer].? Patient?s surrogate medical decision maker is daughter, Teagan Montanez.? Patient?s PCP is Dr. Cisse.? Patient?s ear muff assembler is Dr. Witt.? Discharge plan is for the patient to transition to SNF.? Preferred facility is [facility].? Family requesting short term placement only.? CHEMICAL RECLAMATION EQUIPMENT OPERATOR informed family that authorization would need to be granted for SNF placement.? If insurance does not authorize placement plan is for the patient to return home.? Family receptive to home health services if discharged home.? No preferred agency identified.? Home health to include wound care.? Due to patient?s non-ambulatory status ambulance transport to be scheduled upon patient?s discharge.? Patient in possession of coverage for ambulance transport.? No further discharge needs identified by the patient?s daughter.? No further intervention required at this time, social work associate will be available to address any further concerns.? Next of Kin: Teagan Montanez D/C Plan: SNF
--- NOTE | 2025-02-23 09:36 | PC.SS ---
Follow up note: PT eval was placed. SS submitted to [facility] for review. If denied, patient's daughter is open to services for wound care. Possible d/c 1-2 days.
--- NOTE | 2025-02-23 09:55 | PC.SS ---
Follow up phone call conducted with PASSR staff, Miguel Angel Alves. Level II PASSR to be closed out. On line closure pending.
[2025-02-23] MEDS: COLLAGENASE OINT 30 GM TUBE TOP (10:00)
--- NOTE | 2025-02-23 14:09 | XR_ITS ---
Examination: Abdomen AP single view Technique: AP portable supine abdomen, single view Exam date and time: February 23, 2025 1530 hours INDICATIONS: Vomiting loss of appetite beginning 2 days ago. FINDINGS: Moderate to large amounts of stool throughout the colon, especially large amounts of stool in the rectum Severe osteopenia Right hip hemiarthroplasty healed left hip fracture, severe osteopenia Surgical clips upper right abdomen,. IMPRESSION: Large amounts of stool in the rectum
--- NOTE | 2025-02-23 14:58 | PD.RESPRO ---
Documentation for date of: 02/23/25 Subjective Subjective Interval history: No overnight events. Patient pending ID recommendations. 1 bowel movement recorded overnight night. No pyrexia noted. Patient vitamins added. ID recs rocephin and doxy-->PICC line AM. Short term SNF pending authorization. Exam Vital Signs Temp Pulse Resp BP Pulse Ox O2 Del Method O2 Flow Rate 97.0 F 77 12 126/82 98 Nasal Cannula 2 02/23/25 12:00 02/23/25 12:00 02/23/25 12:00 02/23/25 12:00 02/23/25 12:00 02/23/25 12:00 02/23/25 12:00 Narrative Exam General Appearance: Alert & Oriented X2, well-nourished female who is lying in bed in mild discomfort when patient was rolled over to appreciate ulcer. Ulcer is foul smelling and appears to a purulent discharge. HEENT: Skull symmetrical and atraumatic. Conjunctivae pale pink and moist. Pupils equal, round, reactive to light and accommodation (PERRL). External ear without lesion or discharge. Straight, nares patient, mucosa pink, no discharge. No thyroid nodule appreciated. No cervical lymphadenopathy. Cardio: Normal Rate and Rhythm with S1 and S2 heart sounds. No murmurs or extra heart sounds auscultated. No bruits on carotid auscultation. No peripheral edema or cyanosis. Lungs: Symmetric with good expansion. Chest and back non-tender. Breath sounds vesicular with rhonchi Abdomen: Non-tender, Non-distended, Normal Reactive Bowel Sounds, Negative Chliel's sign. Neuro: Yes Alert, cooperative, oriented to person, place, and time. Speech clear. CN grossly intact. Upper motor strength 5/5 and Lower motor strength 5/5. Sensation intact. Objective Labs 02/24/25 07:15 02/23/25 05:55 Labs: Laboratory Results - last 24 hr 02/23/25 05:55 WBC 9.9 RBC 3.71 L Hgb 11.2 L Hct 33.0 L MCV 89 MCH 30.2 MCHC 33.9 RDW Std Deviation 57.6 H Plt Count 274 D Neut % (Auto) 73 Lymph % (Auto) 16 [place] % (Auto) 9 Eos % (Auto) 2 Baso % (Auto) 0 Neut # (Auto) 7.2 Lymph # (Auto) 1.6 [place] # (Auto) 0.9 H Eos # (Auto) 0.2 Baso # (Auto) 0.0 Immature Gran # (Auto) 0.06 H Absolute Nucleated RBC 0.00 Immature Gran % 1 H Nucleated RBC % 0 Sodium 138 Potassium 4.1 D Chloride 107 Carbon Dioxide 24.3 Anion Gap 7 BUN 6 L Creatinine 0.4 L Estim Creat Clear Calc 75.0 eGFR > 60 BUN/Creatinine Ratio 15 Glucose 71 L Calculated Osmolality 271 L Calcium 7.7 L Corrected Calcium 8.9 Phosphorus 2.1 L Magnesium 1.8 Total Bilirubin 0.7 AST 65 H ALT 32 Alkaline Phosphatase 61 Total Protein 5.1 L Albumin 2.5 L Globulin 2.6 Albumin/Globulin Ratio 1.0 L Random Vancomycin 13.4 Digoxin 3.3 H* D ABG Interpretation ABG results: 02/19/25 18:52 ABG pH 7.41 ABG pCO2 36 ABG pO2 72 L ABG HCO3 23 ABG O2 Saturation 95 ABG Base Excess -2 Quality Measures Quality Measures VTE prophylaxis Advance care planning discussed with:: patient and child Assessment & Plan Assessment Current Active Medications: Generic Name Dose Route Start Last Admin Trade Name Freq PRN Reason Stop Dose Admin Acetaminophen 650 mg 02/20/25 02:06 Acetaminophen 325 Mg Tablet PO 03/22/25 02:05 Q6H PRN Fever >100.3 or pain 1-3 Apixaban 2.5 mg 02/20/25 09:00 02/23/25 08:56 Apixaban 2.5 Mg Tablet PO 03/22/25 08:59 2.5 mg BID ALBINA Administration Ascorbic Acid 500 mg 02/23/25 09:00 02/23/25 08:56 Ascorbic Acid 250 Mg Tablet PO 03/08/25 08:59 500 mg BID ALBINA Administration Atorvastatin Calcium 40 mg 02/20/25 21:00 02/22/25 21:02 Atorvastatin Calcium 20 Mg Tablet PO 03/22/25 20:59 40 mg HS ALBINA Administration Buspirone HCl 7.5 mg 02/20/25 06:00 02/23/25 14:01 Buspirone Hcl 5 Mg Tablet PO 03/22/25 05:59 7.5 mg TID ALBINA Administration Collagenase 0 gm 02/21/25 10:45 02/23/25 10:00 Collagenase Oint 30 Gm Tube TOP 03/23/25 10:44 1 applicatio QDAY ALBINA Administration Digoxin 0.125 mg 02/23/25 09:00 Digoxin 0.125 Mg Tablet PO 03/25/25 08:59 QDAY ALBINA Ceftriaxone Sodium/Dextrose 2 gm in 50 mls @ 100 mls/hr 02/21/25 21:00 02/22/25 21:03 Rocephin/D5w 2gm IV 02/27/25 20:59 100 mls/hr HS ALBINA Administration Levothyroxine Sodium 100 mcg 02/20/25 06:00 02/23/25 05:15 Levothyroxine Sodium 100 Mcg Tablet PO 03/22/25 05:59 100 mcg ACBR ALBINA Administration Magnesium Hydroxide 30 ml 02/20/25 02:06 Milk Of Magnesia Susp 30 Ml Udc PO 03/22/25 02:05 QDAY PRN CONSTIPATION Protocol Melatonin 3 mg 02/20/25 16:53 02/22/25 21:04 Melatonin 3 Mg Tablet PO 03/22/25 20:59 3 mg HS PRN Administration anxiety Ondansetron HCl 4 mg 02/20/25 02:06 Ondansetron Inj 2 Mg/Ml Inj 2 Ml IV 03/22/25 02:05 Q6H PRN NAUSEA OR VOMITING Protocol Oxycodone/Acetaminophen 1 tab 02/20/25 02:06 Oxycodone/Apap 5/325 Tablet PO 02/25/25 02:05 Q6H PRN PAIN SCALE 4-6 (Moderate Sennosides 1 tab 02/22/25 09:00 02/23/25 08:56 Senna Tablet PO 03/24/25 08:59 1 tab QDAY ALBINA Administration Protocol Sertraline HCl 150 mg 02/20/25 09:00 02/23/25 08:55 Sertraline Hcl 25 Mg Tablet PO 03/22/25 08:59 150 mg QDAY ALBINA Administration Zinc Sulfate 220 mg 02/23/25 09:00 02/23/25 08:56 Zinc Sulfate 220 Mg Capsule PO 03/08/25 08:59 220 mg QDAY ALBINA Administration Plan Patient is an 84-year-old female with a past medical history of hypertension, hyperlipidemia, atrial fibrillation (Eliquis), Pulmonary HTN, hypothyroidism, SARAH, and anemia of chornic disease who was admitted on for sepsis secondary to soft tissue infection and CAP. 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 No surgical intervention at this time. MRI nondiagnostic as patient cotinued to move. PT-->recommending rufus lift for home if SNF denied. Pending reccs from ID. Plan: -Ceftriaxone 2 grams and Vancomycin 02/19/2025 -Wound care -consider wound culture, but likely will be poor sample given location -Add AM: Vitmain C 500 mg BID, Zinc Sulfate 220 once daily for 14 days -Consult ID, DR. Pierce, appreciate recommendations. -General Surgery Consulted, Dr. Nguyen, appreciate recommendations #Bibasilar pneumonia w/ bilateral moderate bilateral pleural effusion #Community Acquired Pneumonia #Sepsis secondary CAP w/ bilateral pleural effusion , resolved #Acute hypoxic respiratory failure, improved Patient presented with acute hypoxic respiratory failure, requiring oxygen as patient spO2 as low as 62% requiring addition oxygen support in the ER on nasal canual of 4 liters. Patient was noted to have bibasilar pneumoina with bilateral moderate plerual effusion. Likely secondary to community acquired pneumonia GPC. Previous imagining did not show pleural effusion. Meeting SIRs criteria: tachycardia, tachypenia, elevated WBC count w/ source of infection. Lactic acid 2.4-->1.7 DDx: Aspiration can not be rule out. Viral less likely as flu and covid negative vs Less likely malignancy as family denied any weight loss but patient has had decreased appetite over the last 3 days. CTA chest negative w/ elevated D-Dimers likely secondary to infectious process. 02/21/2025-insufficient pleural fluid for thoracentesis 02/22/2025: blood culture negative after 48 hours, no sputum culture collected. Cocci IgM/IgG negative 02/23/2025: rocephin 2 gm/day and po doxy 100 bid and weekly cbc, renal panel, esr on iv rx and remove line at end of rx SOFA 2 Plan -PICC line AM, PT and PTT AM -Ceftriaxone 2 gm Qday (covering osteo as well) 02/19/2025 -Cocci IgM negative and IgG pending Pressure Mattress Positioning QS -Ensure protein -consider small bolus of 250 if BP drops #Atrial Fibrillation #Atrial Fibrillation, w/ rvr, resolved. Patient has a past medical history of atrial Fibrillation rate controlled previously on Carvedilol which was D/C last year and remained on Eliquis 2.5 BID. Atrial fibrillation madelinley triggered by pneumonia versus soft tissue infection 02/23/2025-skipped dose this morning given elevated digoxin levels, if patient develop afib w/ rvr please give short acting does of metroprolol Plan -Digoxin 0.125 -Digoxin levels AM -Resumed Eliquis 2.5 mg BID -Cardiology consulted, appreciate recommendations #Restrictive Cardiomyopathy #Severe Pulmonary HTN #History Hypertension Patient has a past medical history of hypertension with systolic blood pressures <140 and no anti-hypertensives in medication list. Currently holding off on blood pressure medication given soft blood pressure. Echo 2023: EF 60-65%, RVSP 65, Severe PAH Restrictive Cardiomyopathy . Moderate to Severe TR Plan -Monitor Blood Pressure #Hyperlipidemia Home medication of Pravastatin 40 mg HS. 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 Plan -Resume home medication Levothyroxine 100 mg ACBR #Cholelithiasis CT abdomen/pelvis CT noted to have a common bile duct 14 mm and follow up us of gallbladder showing multiple stones and common bile duct 0.9, thus less choledocholithiasis. Chilel's sign negative w/ soft abdomen. MRCP common hepatic bile duct 10 mm but no common bile duct or common hepatic duct stones. Plan -continue to trend AST/ALT -Surgery Consulted, Dr. Nguyen, no surgical intervention planned. #History of Anxiety Continue home medication of Sertraline and Busprione. Plan -Continue Sertraline 150 mg qday and Buspirone 7.5 mg TID -Melatonin HS PRN #Asymtomatic Bacteruiria Urine culture positive with E. coli, denied dysuria or increased frequency. Non-tender supra-pubic region. Plan -dual coverage with ceftriaxone for osteo #Moderate hepatomegaly, noted on CT abdomen Health Maintenance: Disp: Pt is currently admitted to floors for further management of sepsis secondary to soft tissue infection, awaiting PICC line for osteo of sacral region FEN: Diet cardiac, ensure plus high protien, Judson DVT: Eliquis 2.5 mg BID and Compression Device Code: DNR - The patient's plan was discussed with attending Dr. Irma Peterson MD PGY1 Internal Medicine Attending Provider Attestation/Addendum I reviewed labs, imaging, EKG, home medications and prior available records. Face to face evaluation was performed by me. I have personally examined the patient and discussed assessment and plan with the IM team. I reviewed the resident note and agree with the plan with exceptions as below. Intractable nausea and vomiting, new complication Sepsis secondary to pneumonia Possible osteomyelitis of sacrum Acute E. coli UTI Atrial fibrillation with RVR Decubitus ulcer of sacrum, unstageable Bilateral pleural effusions Patient developed new onset nausea and vomiting. Possibly due to digoxin versus constipation. Continue constipation care. Held digoxin. Discussed with cardiology: Repeat digoxin level tomorrow Continue IV ceftriaxone Continue wound care Consulted ID: Recommended IV Rocephin and doxycycline. Consulted IR for PICC line placement Consulted IR for pleurocentesis. Dangerous to do given that he is close to heart Ordered MRCP that showed no common bile duct stones Pelvic MRI: Nondiagnostic study given the significant motion however showed significant stool amount. Ordered oil enema Ordered echocardiogram Consulted surgery: No indication for surgical intervention Ordered PT evaluation: Recommended SNF. Discussed with social sciences research scientist
--- NOTE | 2025-02-23 14:59 | PC.SS ---
rounding note: Patient is pending ID rec's. Possible i.v. antibiotics. Wound care. PT evaluated patient. SS spoke to insurance. Baseline is bedbound. SS will follow up once we determine if patient will need i.v. antibiotics as well. Otherwise, patient will need to d/c home with HH services.
--- NOTE | 2025-02-23 16:04 | ESPR_ITS ---
RE: KIM PARADA : 1940 DATE OF SERVICE: 02/23/2025 SUBJECTIVE: Ms. Kim Parada is resting comfortably in bed. The patient is breathing fairly well. Denies any complaints of chest pain. Denies any complaints of skip beats or palpitations. The patient is not having any symptoms of fever or chills. OBJECTIVE: Vital Signs: The patient's blood pressure today is 126/82, the pulse rate is 77 per minute and is irregularly irregular. Respiratory rate is 12, temperature is 97, oxygen saturation is 98% on 2 liters of oxygen by nasal cannula. Heart: Irregularly irregular heart rhythm with controlled ventricular response. LABORATORY DATA: Today shows WBC count is down to normal and is 9,900, hemoglobin 11.2 with hematocrit of 33.0. The patient's BUN today is 6, creatinine is 0.4, potassium level is 4.1, serum albumin level is still low and is 2.5. Digoxin blood level done earlier this morning was elevated and was 3.3 and digoxin is being withheld. PLAN: The plan is to continue the rest of the medications as before. Repeat digoxin level will be checked again tomorrow. Discharge planning will be as per the hospitalist. The cardiac echo Doppler study done yesterday showed markedly enlarged left atrium, mild mitral as well as tricuspid regurgitation was noted. Aortic sclerosis and moderate aortic regurgitation were also noted. Left ventricular systolic function though is good with ejection fraction of 50% to 55%. DT: 14:48:37 TT: 16:03:00 Ref: [id number] - TID: [id number]
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
--- NOTE | 2025-02-23 17:30 | ESCONSULT_ITS ---
<Statement entered by Rene Pierce MD - 02/23/25 17:38> seen with resident. all findings confirmed HPI Data of Consult Patient: new to practice Consult date: 02/23/25 Requesting Physician: Qamar Solis MD Admitting Provider: Cody Castillo MD Attending Provider: Qamar Solis MD Primary Care Provider: Mike Cisse MD Consult Narrative Reason for consult: Osteomyelitis History of present illness: Ms. Musa Montanez is an 84-year-old female with past medical history of hypertension, pulmonary hypertension, A-fib on Eliquis, arthritis, hypothyroidism, anxiety, SIADH, anemia, hyperlipidemia who was brought to [facility] with a chief complaint of decreased appetite. Her daughter is her primary caregiver ever since her in 2004 and she states that recently she has had decreased appetite. Patient's daughter states that she attempts to rotate her mother but her mother is stubborn and goes back to her most comfortable position. She noted that she had this ulcer recently. Patient had a recent stay in senior care facility where she did require short-term oxygen therapy but was later discontinued. Patient had CT abdomen pelvis on February 19 which revealed a soft tissue defect posterior to the lower sacrum and coccyx with cortical bone destruction involving the coccygeal segments. She was also noted to have a common bile duct enlargement of 14 mm for which she underwent an MRCP on February 22 for the common hepatic duct was noted to be much smaller without stones. She also underwent a pelvic MRI but was unable to remain still. She is currently admitted for the treatment of a sacral decubitus ulcer and osteomyelitis Social history: does not smoke, drink alcohol Surgical history: s/p left hip ORIF Medications: Trazodone, Eliquis 2.5 mg BID, sertraline, pravastatin, raloxifene, calcium, doxepin. cc:: cc: Qamar Solis MD Review of Systems Review of Systems Systems Reviewed: All systems reviewed, normal except as documented Exam Vital Signs Temp Pulse Resp BP Pulse Ox O2 Del Method O2 Flow Rate 97.5 F 85 17 109/61 97 Nasal Cannula 2 02/23/25 16:00 02/23/25 16:02/23/25 16:02/23/25 16:02/23/25 16:02/23/25 16:02/23/25 12:00 Narrative Exam General Appearance: Alert & Oriented X2, well-nourished female who is lying in bed in mild discomfort when patient was rolled over to appreciate ulcer. Ulcer is foul smelling and appears to a purulent discharge. HEENT: Skull symmetrical and atraumatic. Conjunctivae pin and moist. Pupils equal, round, reactive to light and accommodation (PERRL). External ear without lesion or discharge. Straight, nares patient, mucosa pink, no discharge. No thyroid nodule appreciated. No cervical lymphadenopathy. Cardio: Normal Rate and Rhythm with S1 and S2 heart sounds. No murmurs or extra heart sounds auscultated. No bruits on carotid auscultation. No peripheral edema or cyanosis. Lungs: Symmetric with good expansion. Chest and back non-tender. Breath sounds vesicular with rhonchi Abdomen: Non-tender, Non-distended, Normal Reactive Bowel Sounds, Negative Chilel's sign. Neuro: Yes Alert, cooperative, oriented to person, place, and time. Speech clear. CN grossly intact. Upper motor strength 5/5 and Lower motor strength 5/5. Sensation intact. Results Labs 02/23/25 05:55 02/23/25 05:55 Labs: Short CBC 02/23/25 Range/Units 05:55 WBC 9.9 (3.6-11.0) Thou/mm3 Hgb 11.2 L (12.0-16.0) g/dL Hct 33.0 L (36.0-46.0) % Plt Count 274 D (140-440) Thou/mm3 BMP 02/23/25 05:55 Sodium 138 Potassium 4.1 D Chloride 107 Carbon Dioxide 24.3 BUN 6 L Creatinine 0.4 L Glucose 71 L Calcium 7.7 L Liver Function 02/23/25 Range/Units 05:55 Total Bilirubin 0.7 (0.3-1.2) mg/dL AST 65 H (0-34) U/L ALT 32 (10-49) U/L Alkaline Phosphatase 61 (46-116) U/L Albumin 2.5 L (3.4-4.8) gm/dL ABG Interpretation ABG results: 02/19/25 18:52 ABG pH 7.41 ABG pCO2 36 ABG pO2 72 L ABG HCO3 23 ABG O2 Saturation 95 ABG Base Excess -2 Quality Measures Quality Measures VTE prophylaxis Advance care planning discussed with:: child Medications Home Medications and Allergies Home Medications ?Medication ?Instructions ?Recorded ?Confirmed ?Type levothyroxine 100 mcg tablet 100 mcg PO QDAY #0 tabs 0 04/20/16 02/21/25 History loratadine 10 mg tablet 10 mg PO QDAY 11/21/1911/18 History pantoprazole 40 mg tablet,delayed 40 mg PO QDAY 12/13/22 History release budesonide-formoterol HFA 160 2 inh inhalation BID 08/2512/13/22 History mcg-4.5 mcg/actuation aerosol inhaler (Symbicort) buspirone 7.5 mg tablet 7.5 mg PO TID 12/13/2202/21 History cholecalciferol (vitamin D3) 125 125 mcg PO QDAY 12/1312/13/22 History mcg (5,000 unit) tablet (Vitamin D3) clonidine HCl 0.2 mg tablet 0.2 mg PO BID 12/13/22 History Held on 11/25/23. Instructions: Follow-up with your PCP on when to restart. doxepin 25 mg capsule 25 mg PO HS 12/13/22 3 History hydrocodone 10 mg-acetaminophen 1 tab PO QID PRN Pain 12/13/22 11/18/23 History 325 mg tablet pravastatin 40 mg tablet 40 mg PO HS 12/13/22 5 History sertraline 50 mg tablet 150 mg PO TID 12/13/2202/22 History apixaban 2.5 mg tablet (Eliquis) 2.5 mg PO BID 4 02/21/25 History doxepin 10 mg capsule 10 mg PO HS 02/21/25 5 History ergocalciferol (vitamin D2) 1,250 1,250 mcg PO .once a week 02/21/25 02/21/25 History mcg (50,000 unit) capsule trazodone 50 mg tablet 50 mg PO HS PRN sleep 02/22/25 History calcium 600 mg (as 1 tab PO BID 02/22/25 History carbonate)-vitamin D3 10 mcg (400 unit) tablet mirtazapine 30 mg tablet 30 mg PO HS 02/22/25 5 History raloxifene 60 mg tablet 60 mg PO DAILY 02/22/2502/02 History Allergies Allergy/AdvReac Type Severity Reaction Status Date / Time Penicillins Allergy Severe Rash Verified 02/19/25 16:47 sulfamethoxazole Allergy Severe Rash Verified 02/19/25 16:47 trimethoprim Allergy Severe Rash Verified 02/19/25 16:47 carisoprodol AdvReac Severe Dizziness Verified 02/19/25 16:47 Visit Medications Acetaminophen (Acetaminophen 325 Mg Tablet) 650 mg PO Q6H PRN PRN Reason: Fever >100.3 or pain 1-3 Stop: 03/22/25 02:05 Apixaban (Apixaban 2.5 Mg Tablet) 2.5 mg PO BID [facility] Stop: 03/22/25 08:59 Last Admin: 02/23/25 08:56 Dose: 2.5 mg Ascorbic Acid (Ascorbic Acid 250 Mg Tablet) 500 mg PO BID [facility] Stop: 03/08/25 08:59 Last Admin: 02/23/25 08:56 Dose: 500 mg Atorvastatin Calcium (Atorvastatin Calcium 20 Mg Tablet) 40 mg PO HS [facility] Stop: 03/22/25 20:59 Last Admin: 02/22/25 21:02 Dose: 40 mg Buspirone HCl (Buspirone Hcl 5 Mg Tablet) 7.5 mg PO TID [facility] Stop: 03/22/25 05:59 Last Admin: 02/23/25 14:01 Dose: 7.5 mg Collagenase (Collagenase Oint 30 Gm Tube) 0 gm TOP QDAY [facility] Stop: 03/23/25 10:44 Last Admin: 02/23/25 10:00 Dose: 1 applicatio Digoxin (Digoxin 0.125 Mg Tablet) 0.125 mg PO QDAY [facility] Stop: 03/25/25 08:59 Ceftriaxone Sodium/Dextrose (Rocephin/D5w 2gm) 2 gm in 50 mls @ 100 mls/hr IV HS [facility] Stop: 02/27/25 20:59 Last Admin: 02/22/25 21:03 Dose: 100 mls/hr Levothyroxine Sodium (Levothyroxine Sodium 100 Mcg Tablet) 100 mcg PO ACBR [facility] Stop: 03/22/25 05:59 Last Admin: 02/23/25 05:15 Dose: 100 mcg Magnesium Hydroxide (Milk Of Magnesia Susp 30 Ml Udc) 30 ml PO QDAY PRN; Protocol PRN Reason: CONSTIPATION Stop: 03/22/25 02:05 Melatonin (Melatonin 3 Mg Tablet) 3 mg PO HS PRN PRN Reason: anxiety Stop: 03/22/25 20:59 Last Admin: 02/22/25 21:04 Dose: 3 mg Ondansetron HCl (Ondansetron Inj 2 Mg/Ml Inj 2 Ml) 4 mg IV Q6H PRN; Protocol PRN Reason: NAUSEA OR VOMITING Stop: 03/22/25 02:05 Oxycodone/Acetaminophen (Oxycodone/Apap 5/325 Tablet) 1 tab PO Q6H PRN PRN Reason: PAIN SCALE 4-6 (Moderate Stop: 02/25/25 02:05 Sennosides (Senna Tablet) 1 tab PO QDAY [facility]; Protocol Stop: 03/24/25 08:59 Last Admin: 02/23/25 08:56 Dose: 1 tab Sertraline HCl (Sertraline Hcl 25 Mg Tablet) 150 mg PO QDAY [facility] Stop: 03/22/25 08:59 Last Admin: 02/23/25 08:55 Dose: 150 mg Zinc Sulfate (Zinc Sulfate 220 Mg Capsule) 220 mg PO QDAY [facility] Stop: 03/08/25 08:59 Last Admin: 02/23/25 08:56 Dose: 220 mg Discontinued Medications Digoxin (Digoxin 0.125 Mg Tablet) 0.25 mg PO X1 ONE Stop: 02/21/25 12:01 Last Admin: 02/21/25 14:01 Dose: 0.25 mg Digoxin (Digoxin 0.125 Mg Tablet) 0.25 mg PO Q6HR [facility] Stop: 02/22/25 06:01 Last Admin: 02/22/25 10:38 Dose: 0.25 mg Digoxin (Digoxin 0.125 Mg Tablet) 0.25 mg PO QDAY [facility] Stop: 02/24/25 09:01 Diltiazem HCl (Diltiazem Inj 5 Mg/Ml Vial 5 Ml) 20 mg IV X1 ONE Stop: 02/19/25 18:05 Last Admin: 02/19/25 19:43 Dose: 20 mg Diltiazem HCl (Diltiazem 30 Mg Tablet) 60 mg PO TID [facility] Stop: 03/22/25 15:14 Last Admin: 02/20/25 17:10 Dose: Not Given Diltiazem HCl (Diltiazem 30 Mg Tablet) 30 mg PO TID [facility] Stop: 03/22/25 15:14 Last Admin: 02/21/25 05:29 Dose: Not Given Diltiazem HCl 125 mg/ Dextrose 125 mls @ 5 mls/hr IV .Q24H [facility] Stop: 03/21/25 18:04 Last Infusion: 02/20/25 15:24 Dose: Infused Ceftriaxone Sodium 1,000 mg/ (Sodium Chloride) 50 mls @ 100 mls/hr IV X1 ONE Stop: 02/19/25 19:31 Last Infusion: 02/19/25 22:50 Dose: Infused Vancomycin HCl 1,000 mg/ (Sodium Chloride) 500 mls @ 150 mls/hr IV X1 ONE Stop: 02/19/25 22:21 Last Infusion: 02/19/25 23:30 Dose: Infused Sodium Chloride (Ns) 1,000 mls @ 999 mls/hr IV .Q1H1M ONE Stop: 02/19/25 20:05 Last Infusion: 02/19/25 23:00 Dose: Infused Magnesium Sulfate (Magnesium Sulfate Ivpb) 2 gm in 50 mls @ 25 mls/hr IV X1 ONE Stop: 02/19/25 22:37 Last Infusion: 02/20/25 00:30 Dose: Infused Azithromycin 500 mg/ Sodium (Chloride) 250 mls @ 250 mls/hr IV X1 ONE Stop: 02/19/25 21:38 Last Infusion: 02/20/25 00:00 Dose: Infused Ceftriaxone Sodium 2 gm/ (Sodium Chloride) 50 mls @ 100 mls/hr IV QDAY [facility] Stop: 02/27/25 02:13 Last Admin: 02/20/25 03:56 Dose: Not Given Ceftriaxone Sodium/Dextrose (Rocephin/D5w 1gm Iv Premix) 1 gm in 50 mls @ 100 mls/hr IV X1 ONE Stop: 02/20/25 02:45 Last Infusion: 02/20/25 03:56 Dose: Infused Ceftriaxone Sodium 2 gm/ (Sodium Chloride) 50 mls @ 100 mls/hr IV HS [facility] Stop: 02/27/25 20:59 Last Admin: 02/20/25 20:45 Dose: 100 mls/hr Magnesium Sulfate (Magnesium Sulfate Ivpb) 4 gm in 50 mls @ 12.5 mls/hr IV X1 ONE Stop: 02/20/25 06:29 Last Infusion: 02/20/25 07:58 Dose: Infused Vancomycin/Sodium Chloride (Vancomycin/Ns 1 Gm Ivpb) 200 mls @ 120 mls/hr IV X1 ONE Stop: 02/20/25 11:39 Last Infusion: 02/20/25 11:10 Dose: Infused Vancomycin/Sodium Chloride (Vancomycin/Ns 1 Gm Ivpb) 200 mls @ 120 mls/hr IV X1 ONE Stop: 02/20/25 23:39 Last Admin: 02/20/25 22:50 Dose: 120 mls/hr Vancomycin/Sodium Chloride (Vancomycin/Ns 1 Gm Ivpb) 200 mls @ 120 mls/hr IV Q12H [facility]; Protocol Stop: 02/28/25 09:59 Last Admin: 02/21/25 22:56 Dose: Not Given Levothyroxine Sodium (Levothyroxine Sodium 100 Mcg Tablet) 100 mcg PO QDAY [facility] Stop: 03/22/25 08:59 Melatonin (Melatonin 3 Mg Tablet) 3 mg PO HS [facility] Stop: 03/22/25 20:59 Non-Formulary Medication (Sertraline) 150 mg PO TID [facility] Stop: 03/22/25 05:59 Pharmacy Consult (Vancomycin Pharmacy To Dose 1 Each Each) 1 each IV QDAY PRN PRN Reason: CONSULT Stop: 03/22/25 08:59 Potassium Chloride (Potassium Chloride 20 Meq Tabcr) 40 meq PO X1 ONE Stop: 02/20/25 02:31 Last Admin: 02/20/25 03:01 Dose: 40 meq Potassium Chloride (Potassium Chloride 10% 20 Meq/15 Ml Udc) 40 meq PO X1 ONE Stop: 02/22/25 09:52 Last Admin: 02/22/25 10:49 Dose: 40 meq Pravastatin Sodium (Pravastatin Sodium 10 Mg Tablet) 40 mg PO HS [facility] Stop: 03/22/25 20:59 Rivaroxaban (Rivaroxaban 10 Mg Tablet) 2.5 mg PO BID [facility] Stop: 03/22/25 08:59 Sennosides (Senna Tablet) 1 tab PO QDAY PRN; Protocol PRN Reason: constipation Stop: 03/22/25 02:05 Sodium Chloride (Sodium Chloride Rt 10% 15 Ml Nebu) 5 ml INH X1 ONE Stop: 02/20/25 17:01 Last Admin: 02/23/25 00:01 Dose: Not Given Assessment & Plan Plan #Sacral decubitus ulcer #Osteomyelitis of the sacrum #Generalized weakness Patient is mostly bedridden with her daughter being the primary caregiver who attempts to do her best and rotate her mother. Mother finds comfort in remaining still and notes that she has pain upon rotation Recently the patient has had significantly decreased appetite stating that she is fatigued and not hungry and would like to join her . Patient is on Rocephin 2 g daily for the management of osteomyelitis Recommend the addition of doxycycline 100 mg twice daily for total course of 6 weeks from start date Patient's family does seem amenable to hospice care and have previously experienced hospice for her other grandparents Understanding of the fact that patient's decreased appetite makes very poor candidate for wound healing and her immobilization also leads her to be a poor candidate Patient will likely require PICC line for 6 weeks of IV antibiotic therapy with ceftriaxone Patient can be on antibiotic therapy with hospice care Currently on 2 L via nasal cannula. Thoracentesis attempted but unable to be completed due to lack of pleural fluid #Bibasilar pneumonia w/ bilateral moderate bilateral pleural effusion #Community Acquired Pneumonia #Sepsis secondary CAP w/ bilateral pleural effusion , resolved #Acute hypoxic respiratory failure, improved #Atrial Fibrillation #Atrial Fibrillation, w/ rvr, resolved. #Restrictive Cardiomyopathy #Severe Pulmonary HTN #History Hypertension #Hyperlipidemia #History of hypothyoidism, s/p thyroidectomy #Cholelithiasis #History of Anxiety #Asymtomatic Bacteruiria - Rest of management as per primary team Plan of care discussed with supervising attending Dr. Stan Leonard M.D. PGY-3
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
[2025-02-23] MEDS: ATORVASTATIN CALCIUM 20 MG TABLET 40 MG PO (20:45)
[2025-02-23] MEDS: cefTRIAXone/D5w 2gm 2 GM/50 ML BAG IV (20:46)
[2025-02-23] MEDS: MELATONIN 3 MG TABLET PO (21:20)
[2025-02-24] VITALS (11 sets, daily range): BP systolic 112–175; BP diastolic 67–110; PULSE 72–100; RESP 15–25; TEMP 36.1–36.6; O2SAT 94–100; BMI 23.9
[2025-02-24] MEDS: BusPIRone HCL 5 MG TABLET 7.5 MG PO ×2 (05:48→21:00)
[2025-02-24] MEDS: LEVOTHYROXINE SODIUM 100 MCG TABLET PO (05:53)
[2025-02-24 07:43] LABS: Basophils # (Auto) 0.1 Thou/mm3 (0.0-0.2); Basophils % (Auto) 1 % (0-2.5); Eosinophils # (Auto) 0.2 Thou/mm3 (0.0-0.5); Eosinophils % (Auto) 1 % (0-10); Hematocrit 37.5 % (36.0-46.0); Hemoglobin 12.5 g/dL (12.0-16.0); Immature Granulocytes % (Auto) 0 % (0-0); Immature Granulocytes Auto 0.05 Thou/mm3 (0.00-0.00); Lymphocytes # (Auto) 1.8 Thou/mm3 (1.0-4.8); Lymphocytes % (Auto) 15 % (10-50); Mean Corpuscular HGB Conc 33.3 g/dl (31.0-37.0); Mean Corpuscular Volume 90 fL (80-100); Monocytes # (Auto) 0.8 Thou/mm3 (0.0-0.8); Monocytes % (Auto) 7 % (0-12); Neutrophils # (Auto) 8.8 Thou/mm3 (1.8-7.7); Neutrophils % (Auto) 75 % (37-80); Nucleated Red Blood Cell % 0 /100 WBC (0); Platelet Count 365 Thou/mm3 (140-440); RDW Standard Deviation 57.6 fL (36.4-46.3); Red Blood Count 4.17 Miln/mm3 (4.00-5.20); White Blood Count 11.7 Thou/mm3 (3.6-11.0)
--- NOTE | 2025-02-24 08:00 | XR_ITS ---
Examination: Attempted PICC line Fluoroscopy AP chest 2 views Exam date and time: February 24, 2025 1326 hours Need for long-term intravenous antibiotic therapy Technique an findings: Unsuccessful ultrasound-guided needle access into veins in the upper extremity, the veins are extremely small Estimated blood loss 2 cc IMPRESSION: Unsuccessful ultrasound-guided venous access into the deep venous system right arm
[2025-02-24 08:33] LABS: Alanine Aminotransferase 41 U/L (10-49); Albumin, Serum 2.8 gm/dL (3.4-4.8); Albumin/Globulin Ratio 0.9 (1.2-2.2); Alkaline Phosphatase 68 U/L (46-116); Anion Gap 7 (7-16); Aspartate Amino Transferase 91 U/L (0-34); BUN/Creatinine Ratio 18 Ratio (12-20); Bilirubin,Total 0.7 mg/dL (0.3-1.2); Blood Urea Nitrogen 7 mg/dL (9-23); Calcium 8.1 mg/dL (8.3-10.6); Calcium (Corrected) 9.1 mg/dL (8.5-10.1); Chloride 100 mMol/L (98-107); Creatinine (Component) 0.4 mg/dL (0.6-1.3); Estimated Creatinine Clearance 73.8 mL/min (>60); Globulin 3.1 gm/dL (2.3-3.5); Glucose 54 mg/dL (74-106); Magnesium 1.8 mg/dL (1.6-2.6); Osmolality,Calculated 260 (275-295); Phosphorous 2.3 mg/dL (2.4-5.1); Potassium 3.7 mMol/L (3.4-5.1); Sodium 132 mMol/L (136-145); Total Protein 5.9 gm/dL (5.7-8.2); eGFR > 60 See Note
[2025-02-24 08:34] LABS: INR 1.2 (0.9-1.3); Partial Thromboplastin Time 32.8 Seconds (22.0-36.0)
[2025-02-24] MEDS: COLLAGENASE OINT 30 GM TUBE TOP (08:55)
[2025-02-24 11:11] LABS: Prealbumin < 5.0 mg/dL (10.0-40.0)
--- NOTE | 2025-02-24 13:40 | PC.SS ---
SS attempted to reach pt dtr Yesenia o discuss DC plan, no answer, VM left.
[2025-02-24] MEDS: HEPARIN SOD LOCK SYR 100 UNIT/ML 500 UNIT STFIELD (14:12)
[2025-02-24] MEDS: LIDOCAINE INJ PF 1% 30 ML VIAL EPID (14:12)
--- NOTE | 2025-02-24 14:46 | PC.NURSE ---
Pt returned from IR after unsuccessful PICC line placement, made aware
--- NOTE | 2025-02-24 15:01 | PC.NURSE ---
Report received from Shira PULIDO, Consent was also obtained over the phone from patients daughter Teagan Montanez, Shira was my witness Took patient down to IR with Yanni Patient on supine position and Foreign Raphael prepped patients arm Once patient was ready we called DR Dinh and a team time out was done MD unsuccessful in PICC line insertion Report given to RN and RN aware of unsuccessful PICC Line insertion
--- NOTE | 2025-02-24 15:56 | PD.RESPRO ---
Documentation for date of: 02/24/25 Subjective Subjective Interval history: Overnight, no atrial fibrillation noted. Digoxin levels at 2.0, currently holding digoxin, consider resuming tomorrow. Patient alert and orientated X 2. No chills or pyrexia overnight. Patient denied chest pain. PICC line failed. Surgery consulted for Port a cath for IV antibiotics. Exam Vital Signs Temp Pulse Resp BP Pulse Ox O2 Del Method O2 Flow Rate 97.3 F 85 17 152/87 H 97 Nasal Cannula 2 02/24/25 12:00 02/24/25 14:22 02/24/25 14:22 02/24/25 14:22 02/24/25 14:22 02/24/25 14:22 02/24/25 14:22 Narrative Exam General Appearance: Alert & Oriented X2, well-nourished female who is lying in bed in mild discomfort when patient was rolled over to appreciate ulcer. Ulcer is foul smelling and appears to a purulent discharge. HEENT: Skull symmetrical and atraumatic. Conjunctivae pin and moist. Pupils equal, round, reactive to light and accommodation (PERRL). External ear without lesion or discharge. Straight, nares patient, mucosa pink, no discharge. No thyroid nodule appreciated. No cervical lymphadenopathy. Cardio: Normal Rate and Rhythm with S1 and S2 heart sounds. No murmurs or extra heart sounds auscultated. No bruits on carotid auscultation. No peripheral edema or cyanosis. Lungs: Symmetric with good expansion. Chest and back non-tender. Breath sounds vesicular with rhonchi Abdomen: Non-tender, Non-distended, Normal Reactive Bowel Sounds, Negative Chilel's sign. Neuro: Yes Alert, cooperative, oriented to person, place, and time. Speech clear. CN grossly intact. Upper motor strength 5/5 and Lower motor strength 5/5. Sensation intact. Objective Labs 02/24/25 07:15 02/24/25 07:15 Labs: Laboratory Results - last 24 hr 02/24/25 07:15 WBC 11.7 H RBC 4.17 Hgb 12.5 Hct 37.5 MCV 90 MCH 30.0 MCHC 33.3 RDW Std Deviation 57.6 H Plt Count 365 D Neut % (Auto) 75 Lymph % (Auto) 15 [place] % (Auto) 7 Eos % (Auto) 1 Baso % (Auto) 1 Neut # (Auto) 8.8 H Lymph # (Auto) 1.8 [place] # (Auto) 0.8 Eos # (Auto) 0.2 Baso # (Auto) 0.1 Immature Gran # (Auto) 0.05 H Absolute Nucleated RBC 0.00 Immature Gran % 0 Nucleated RBC % 0 PT 13.0 H INR 1.2 APTT 32.8 Sodium 132 L Potassium 3.7 Chloride 100 Carbon Dioxide 25.0 Anion Gap 7 BUN 7 L Creatinine 0.4 L Estim Creat Clear Calc 73.8 eGFR > 60 BUN/Creatinine Ratio 18 Glucose 54 L Calculated Osmolality 260 L Calcium 8.1 L Corrected Calcium 9.1 Phosphorus 2.3 L Magnesium 1.8 Total Bilirubin 0.7 AST 91 H ALT 41 Alkaline Phosphatase 68 Total Protein 5.9 Albumin 2.8 L Globulin 3.1 Albumin/Globulin Ratio 0.9 L Prealbumin < 5.0 L Digoxin 2.0 D ABG Interpretation ABG results: 02/19/25 18:52 ABG pH 7.41 ABG pCO2 36 ABG pO2 72 L ABG HCO3 23 ABG O2 Saturation 95 ABG Base Excess -2 Quality Measures Quality Measures VTE prophylaxis Advance care planning discussed with:: patient Assessment & Plan Assessment Current Active Medications: Generic Name Dose Route Start Last Admin Trade Name Freq PRN Reason Stop Dose Admin Acetaminophen 650 mg 02/20/25 02:06 Acetaminophen 325 Mg Tablet PO 03/22/25 02:05 Q6H PRN Fever >100.3 or pain 1-3 Apixaban 2.5 mg 02/20/25 09:00 02/23/25 20:45 Apixaban 2.5 Mg Tablet PO 03/22/25 08:59 2.5 mg BID ALBINA Administration Ascorbic Acid 500 mg 02/23/25 09:00 02/24/25 09:12 Ascorbic Acid 250 Mg Tablet PO 03/08/25 08:59 Not Given BID ALBINA Atorvastatin Calcium 40 mg 02/20/25 21:00 02/23/25 20:45 Atorvastatin Calcium 20 Mg Tablet PO 03/22/25 20:59 40 mg HS ALBINA Administration Buspirone HCl 7.5 mg 02/20/25 06:00 02/24/25 14:01 Buspirone Hcl 5 Mg Tablet PO 03/22/25 05:59 Not Given TID ALBINA Collagenase 0 gm 02/21/25 10:45 02/24/25 08:55 Collagenase Oint 30 Gm Tube TOP 03/23/25 10:44 1 applicatio QDAY ALBINA Administration Digoxin 0.125 mg 02/23/25 09:00 Digoxin 0.125 Mg Tablet PO 03/25/25 08:59 QDAY ALBINA Doxycycline Hyclate 100 mg 02/24/25 21:00 Doxycycline 100 Mg Tablet PO 03/03/25 20:59 BID ALBINA Ceftriaxone Sodium/Dextrose 2 gm in 50 mls @ 100 mls/hr 02/21/25 21:00 02/24/25 13:50 Rocephin/D5w 2gm IV 02/27/25 20:59 Infused HS ALBINA Infusion Levothyroxine Sodium 100 mcg 02/20/25 06:00 02/24/25 05:53 Levothyroxine Sodium 100 Mcg Tablet PO 03/22/25 05:59 100 mcg ACBR ALBINA Administration Magnesium Hydroxide 30 ml 02/20/25 02:06 Milk Of Magnesia Susp 30 Ml Udc PO 03/22/25 02:05 QDAY PRN CONSTIPATION Protocol Melatonin 3 mg 02/20/25 16:53 02/23/25 21:20 Melatonin 3 Mg Tablet PO 03/22/25 20:59 3 mg HS PRN Administration anxiety Mirtazapine 15 mg 02/24/25 09:00 02/24/25 09:12 Mirtazapine 15 Mg Tablet PO 03/26/25 08:59 Not Given QDAY [facility] Ondansetron HCl 4 mg 02/20/25 02:06 Ondansetron Inj 2 Mg/Ml Inj 2 Ml IV 03/22/25 02:05 Q6H PRN NAUSEA OR VOMITING Protocol Oxycodone/Acetaminophen 1 tab 02/20/25 02:06 Oxycodone/Apap 5/325 Tablet PO 02/25/25 02:05 Q6H PRN PAIN SCALE 4-6 (Moderate Sennosides 1 tab 02/22/25 09:00 02/24/25 09:12 Senna Tablet PO 03/24/25 08:59 Not Given QDAY [facility] Protocol Sertraline HCl 150 mg 02/20/25 09:00 02/24/25 09:12 Sertraline Hcl 25 Mg Tablet PO 03/22/25 08:59 Not Given QDAY [facility] Zinc Sulfate 220 mg 02/23/25 09:00 02/24/25 09:11 Zinc Sulfate 220 Mg Capsule PO 03/08/25 08:59 Not Given QDAY ALBINA Plan Patient is an 84-year-old female with a past medical history of hypertension, hyperlipidemia, atrial fibrillation (Eliquis), Pulmonary HTN, hypothyroidism, SARAH, and anemia of chornic disease who was admitted on for sepsis secondary to soft tissue infection and CAP. 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 No surgical intervention at this time. MRI nondiagnostic as patient cotinued to move. PT-->recommending rufus lift for home if SNF denied. 02/24/2025: Vanco d/c-->doxy Plan: -PICC line failed, consult surgery, possible port a cath vs oral -Ceftriaxone 2 grams (02/19/2025) & Doxycline 100 mg BID 02/24/2025 -Wound care -consider wound culture, but likely will be poor sample given location -Add AM: Vitmain C 500 mg BID, Zinc Sulfate 220 once daily for 14 days -Consult ID, DR. Pierce, appreciate recommendations. -General Surgery Consulted, Dr. Nguyen, appreciate recommendations #Bibasilar pneumonia w/ bilateral moderate bilateral pleural effusion #Community Acquired Pneumonia #Sepsis secondary CAP w/ bilateral pleural effusion , resolved #Acute hypoxic respiratory failure, improved Patient presented with acute hypoxic respiratory failure, requiring oxygen as patient spO2 as low as 62% requiring addition oxygen support in the ER on nasal canual of 4 liters. Patient was noted to have bibasilar pneumoina with bilateral moderate plerual effusion. Likely secondary to community acquired pneumonia GPC. Previous imagining did not show pleural effusion. Meeting SIRs criteria: tachycardia, tachypenia, elevated WBC count w/ source of infection. Lactic acid 2.4-->1.7 DDx: Aspiration can not be rule out. Viral less likely as flu and covid negative vs Less likely malignancy as family denied any weight loss but patient has had decreased appetite over the last 3 days. CTA chest negative w/ elevated D-Dimers likely secondary to infectious process. 02/21/2025-insufficient pleural fluid for thoracentesis 02/22/2025: blood culture negative after 48 hours, no sputum culture collected. Cocci IgM/IgG negative 02/23/2025: rocephin 2 gm/day and po doxy 100 bid and weekly cbc, renal panel, esr on iv rx and remove line at end of rx 02/24/2025: PICC line failed, Doxycylcine added & Ceftriaxone IV for 6 weeks. SOFA 2 Plan -Ceftriaxone 2 gm Qday (covering osteo as well) 02/19/2025 -Doxycyline 02/24/2025 Pressure Mattress Positioning QS -Ensure protein -consider small bolus of 250 if BP drops #Atrial Fibrillation #Atrial Fibrillation, w/ rvr, resolved. Patient has a past medical history of atrial Fibrillation rate controlled previously on Carvedilol which was D/C last year and remained on Eliquis 2.5 BID. Atrial fibrillation likley triggered by pneumonia versus soft tissue infection 02/23/2025-skipped dose this morning given elevated digoxin levels, if patient develop afib w/ rvr please give short acting does of metroprolol Plan -Digoxin 0.125, holding -Digoxin levels AM -Holding Eliquis 2.5 mg BID, possible port a cath -Cardiology consulted, appreciate recommendations #Restrictive Cardiomyopathy #Severe Pulmonary HTN #History Hypertension Patient has a past medical history of hypertension with systolic blood pressures <140 and no anti-hypertensives in medication list. Currently holding off on blood pressure medication given soft blood pressure. Echo 2024: EF 50-55%, RVSP 65.7, Severe PAH Restrictive Cardiomyopathy . Moderate to Severe TR Plan -Monitor Blood Pressure #Hyperlipidemia Home medication of Pravastatin 40 mg HS. 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 Plan -Resume home medication Levothyroxine 100 mg ACBR #Cholelithiasis CT abdomen/pelvis CT noted to have a common bile duct 14 mm and follow up us of gallbladder showing multiple stones and common bile duct 0.9, thus less choledocholithiasis. Chilel's sign negative w/ soft abdomen. MRCP common hepatic bile duct 10 mm but no common bile duct or common hepatic duct stones. Plan -continue to trend AST/ALT -Surgery Consulted, Dr. Nguyen, no surgical intervention planned. #History of Anxiety Continue home medication of Sertraline and Busprione. Plan -Continue Sertraline 150 mg qday and Buspirone 7.5 mg TID -Melatonin HS PRN #Asymtomatic Bacteruiria Urine culture positive with E. coli, denied dysuria or increased frequency. Non-tender supra-pubic region. Plan -dual coverage with ceftriaxone for osteo #Intractable Nausea and Vomting, resolved. #Moderate hepatomegaly, noted on CT abdomen Health Maintenance: Disp: Pt is currently admitted to floors for further management of sepsis secondary to soft tissue infection, PICC line failed, possible port a cath FEN: Diet cardiac, ensure plus high protien, Judson DVT: Eliquis 2.5 mg BID (holding) and Compression Device Code: DNR - The patient's plan was discussed with attending Dr. Irma Peterson MD PGY1 Internal Medicine Attending Provider Attestation/Addendum Attending Provider Attestation/Addendum I reviewed labs, imaging, EKG, home medications and prior available records. Face to face evaluation was performed by me. I have personally examined the patient and discussed assessment and plan with the IM team. I reviewed the resident note and agree with the plan with exceptions as below. Intractable nausea and vomiting, new complication Sepsis secondary to pneumonia Possible osteomyelitis of sacrum Acute E. coli UTI Atrial fibrillation with RVR Decubitus ulcer of sacrum, unstageable Bilateral pleural effusions Nausea and vomiting improved. Continue to hold digoxin. Follow-up with cardiology Continue IV ceftriaxone Continue wound care Consulted ID: Recommended IV Rocephin and doxycycline. Unsuccessful PICC line placement by IR. Discussed with IR: Recommended port a cath. Consulted surgery for that and contacted Dr. Archibald Consulted IR for pleurocentesis. Dangerous to do given that he is close to heart Ordered MRCP that showed no common bile duct stones Pelvic MRI: Nondiagnostic study given the significant motion however showed significant stool amount. Ordered oil enema Ordered echocardiogram Consulted surgery: No indication for surgical intervention Ordered PT evaluation: Recommended SNF. Discussed with social media content specialist. Patient wants to go home. Ordered home health
--- NOTE | 2025-02-24 17:52 | ESPR_ITS ---
RE: KIM PARADA : 1940 DATE OF SERVICE: 02/24/2025 SUBJECTIVE: Ms. Parada is resting comfortably in bed. The patient is breathing fairly well. Denies any complaints of chest pain. Denies any complaints of skipped beats or palpitations. The patient is not having any symptoms of fever or chills. OBJECTIVE: Vital Signs: The patient's blood pressure today is 152/87, pulse rate is 85 per minute and irregularly irregular, respiratory rate is 17 per minute, and oximetry saturation is 97% on 2 liters of oxygen by nasal cannula. Heart: Shows an irregularly irregular heart rhythm. Heart rhythm is staying in atrial fibrillation with moderate ventricular response. Lungs: Show few basal rhonchi. Extremities: No pedal edema is noted. LABORATORY DATA: Lab work today shows WBC count is 11,700, hemoglobin of 12.5 with a hematocrit of 37.5. The patient's BUN today is 7, creatinine 0.4, potassium level is 3.7, serum sodium level is on the lower side and is 132. The patient's serum albumin level is still on the lower side and is 2.8. The digoxin blood level this morning is high normal and is 2.0. PLAN: Plan to withhold the digoxin dose today and we will start the patient back on digoxin at 0.125 mg daily. The rest of the medications will be continued as before. DT: 17:08:50 TT: 17:51:00 Ref: [id number] - TID: [id number]
[2025-02-24] MEDS: ATORVASTATIN CALCIUM 20 MG TABLET 40 MG PO (20:56)
[2025-02-24] MEDS: ASCORBIC ACID 250 MG TABLET 500 MG PO (20:56)
[2025-02-24] MEDS: cefTRIAXone/D5w 2gm 2 GM/50 ML BAG IV (20:56)
[2025-02-24] MEDS: DOXYCYCLINE 100 MG TABLET PO (20:56)
[2025-02-25] VITALS (8 sets, daily range): BP systolic 102–139; BP diastolic 57–89; PULSE 67–92; RESP 12–24; TEMP 36.1–36.6; O2SAT 92–100; BMI 22.6
[2025-02-25] MEDS: MELATONIN 3 MG TABLET PO (01:16)
[2025-02-25] MEDS: LEVOTHYROXINE SODIUM 100 MCG TABLET PO (05:54)
[2025-02-25] MEDS: BusPIRone HCL 5 MG TABLET 7.5 MG PO ×3 (05:54→21:02)
[2025-02-25 06:00] LABS: Basophils % (Auto) 0 % (0-2.5); Eosinophils # (Auto) 0.2 Thou/mm3 (0.0-0.5); Eosinophils % (Auto) 2 % (0-10); Hematocrit 32.9 % (36.0-46.0); Hemoglobin 11.4 g/dL (12.0-16.0); Immature Granulocytes % (Auto) 1 % (0-0); Immature Granulocytes Auto 0.07 Thou/mm3 (0.00-0.00); Lymphocytes # (Auto) 1.5 Thou/mm3 (1.0-4.8); Lymphocytes % (Auto) 14 % (10-50); Mean Corpuscular HGB Conc 34.7 g/dl (31.0-37.0); Mean Corpuscular Hemoglobin 30.3 pg (25.0-35.0); Mean Corpuscular Volume 88 fL (80-100); Monocytes # (Auto) 0.8 Thou/mm3 (0.0-0.8); Monocytes % (Auto) 7 % (0-12); Neutrophils # (Auto) 8.7 Thou/mm3 (1.8-7.7); Neutrophils % (Auto) 77 % (37-80); Nucleated Red Blood Cell % 0 /100 WBC (0); Platelet Count 316 Thou/mm3 (140-440); RDW Standard Deviation 55.1 fL (36.4-46.3); Red Blood Count 3.76 Miln/mm3 (4.00-5.20); White Blood Count 11.3 Thou/mm3 (3.6-11.0)
[2025-02-25 06:46] LABS: Alanine Aminotransferase 39 U/L (10-49); Albumin, Serum 2.5 gm/dL (3.4-4.8); Albumin/Globulin Ratio 0.9 (1.2-2.2); Alkaline Phosphatase 65 U/L (46-116); Anion Gap 10 (7-16); Aspartate Amino Transferase 104 U/L (0-34); BUN/Creatinine Ratio 20 Ratio (12-20); Bilirubin,Total 0.6 mg/dL (0.3-1.2); Blood Urea Nitrogen 8 mg/dL (9-23); Calcium 7.8 mg/dL (8.3-10.6); Carbon Dioxide 23.7 mMol/L (20.0-31.0); Chloride 102 mMol/L (98-107); Creatinine (Component) 0.4 mg/dL (0.6-1.3); Digoxin 1.5 ng/mL (0.8-2.0); Estimated Creatinine Clearance 71.9 mL/min (>60); Globulin 2.8 gm/dL (2.3-3.5); Magnesium 1.5 mg/dL (1.6-2.6); Osmolality,Calculated 267 (275-295); Phosphorous 2.6 mg/dL (2.4-5.1); Potassium 3.5 mMol/L (3.4-5.1); Sodium 136 mMol/L (136-145); Total Protein 5.3 gm/dL (5.7-8.2); eGFR > 60 See Note
[2025-02-25 06:49] LABS: Glucose 44 mg/dL (74-106)
[2025-02-25] MEDS: DEXTROSE 50%-WATER INJ 50 ML SYRINGE IV (07:13)
[2025-02-25] MEDS: Magnesium Sulfate 2 GM Ivpb 2 GM/50 ML BAG IV (09:04)
[2025-02-25] MEDS: DEXTROSE 10%-WATER 500 ML 50 ML IV (09:05)
[2025-02-25] MEDS: APIXABAN 2.5 MG TABLET PO ×2 (09:16→21:01)
[2025-02-25] MEDS: POTASSIUM CHLORIDE 10% 20 MEQ/15 ML UDC PO (09:17)
[2025-02-25] MEDS: ASCORBIC ACID 250 MG TABLET 500 MG PO ×2 (09:18→21:01)
[2025-02-25] MEDS: DOXYCYCLINE 100 MG TABLET PO (09:18)
[2025-02-25] MEDS: ZINC SULFATE 220 MG CAPSULE PO (09:18)
[2025-02-25] MEDS: MIRTAZAPINE 15 MG TABLET PO ×2 (09:20→21:02)
[2025-02-25] MEDS: SENNA TABLET 1 TAB PO (09:21)
[2025-02-25] MEDS: CALCIUM CARBONATE 600 MG TABLET PO (09:21)
[2025-02-25] MEDS: SERTRALINE HCL 25 MG TABLET 150 MG PO (09:21)
--- NOTE | 2025-02-25 09:38 | PD.IDPROG ---
Subjective Subjective Interval history: ok to finish Iv rocephin 2 gm/day and po doxy on 04/03 if family desires rx as outpt. I may have stopped them inadvertently, ok to restart them or move her to outpt rx. Exam Vital Signs Temp Pulse Resp BP Pulse Ox O2 Del Method O2 Flow Rate 97.0 F 85 18 128/70 99 Nasal Cannula 1 02/25/25 08:00 02/25/25 08:00 02/25/25 08:00 02/25/25 08:00 02/25/25 08:00 02/25/25 08:00 02/25/25 08:00 Narrative Exam limited visit. no new findings noted. Objective - Internal Medicine Labs 02/25/25 05:23 02/25/25 05:23 Labs: Laboratory Results - last 24 hr 02/24/25 02/25/25 07:15 05:23 WBC 11.3 H RBC 3.76 L Hgb 11.4 L Hct 32.9 L MCV 88 MCH 30.3 MCHC 34.7 RDW Std Deviation 55.1 H Plt Count 316 D Neut % (Auto) 77 Lymph % (Auto) 14 [place] % (Auto) 7 Eos % (Auto) 2 Baso % (Auto) 0 Neut # (Auto) 8.7 H Lymph # (Auto) 1.5 [place] # (Auto) 0.8 Eos # (Auto) 0.2 Baso # (Auto) 0.0 Immature Gran # (Auto) 0.07 H Absolute Nucleated RBC 0.00 Immature Gran % 1 H Nucleated RBC % 0 Sodium 136 Potassium 3.5 Chloride 102 Carbon Dioxide 23.7 Anion Gap 10 BUN 8 L Creatinine 0.4 L Estim Creat Clear Calc 71.9 eGFR > 60 BUN/Creatinine Ratio 20 Glucose 44 L* Calculated Osmolality 267 L Calcium 7.8 L Corrected Calcium 9.0 Phosphorus 2.6 Magnesium 1.5 L Total Bilirubin 0.6 AST 104 H ALT 39 Alkaline Phosphatase 65 Total Protein 5.3 L Albumin 2.5 L Globulin 2.8 Albumin/Globulin Ratio 0.9 L Prealbumin < 5.0 L Digoxin 1.5 D ABG Interpretation ABG results: 02/19/25 18:52 ABG pH 7.41 ABG pCO2 36 ABG pO2 72 L ABG HCO3 23 ABG O2 Saturation 95 ABG Base Excess -2 Assessment & Plan A&P Narrative htn osteo, sacrum du, sacral depression hypothyroid hld family aware that abx do not heal du's they only kill germs. du's are caused by pressure, so pressure avoidance is how the sores will improve. the sacral sore will take months to improve. she is 84 and lost her . so may have limited time to get that done. prealbumin noted. she has not been eating ok to give rocephin 2gm/day and po doxy 100 bid thru 04/03 with weekly cbc, renal panel, esr and line removal at end of rx will checkon her on Friday if she remains in house Time Spent With Patient Time: Total time spent is greater than 50% in coordination of care (as documented) at patient's floor/unit and/or counseling patient:
--- NOTE | 2025-02-25 10:43 | PD.RESDS ---
Planned Discharge Date 02/25/25 DS: Providers Provider Date of admission: 02/20/25 02:06 Primary care physician: Mike Cisse MD Admitting Provider: Cody Castillo MD Attending Provider on Admission: Qamar Solis MD Consults: 02/20/25 02:03 Consult to General Surgery Stat Comment: Cholecystitis Consulting Provider: Kiana Brewer 02/20/25 02:18 Referral Wound Care Routine Comment: 02/20/25 10:48 Consult to Cardiology Routine Comment: Consulting Provider: Neo Witt Instructions: Afib w/ rvr on admission, started Diltiazem drip 02/21/25 10:42 Referral Nutritional Services Routine Comment: Wounds Referral OP Wound Healing Dept Routine Comment: Sacral unstageable 02/21/25 14:26 Referral Physical Therapy Urgent Comment: Physician Instructions: Instructions: patient would benefit from home health 02/22/25 08:42 Consult to Infectious Diseases Routine Comment: Consulting Provider: Rene Pierce Attending Provider on DC: Kenna Peterson MD Discharging Provider: Kenna Peterson MD DS: Diagnosis Problem List Completed Was Problem List Reviewed/Reconciled?: Yes Hospital Course Hospital Course Hospital course: Summary: Patient is an 84-year-old female with a past medical history of hypertension, hyperlipidemia, atrial fibrillation (Eliquis), Pulmonary HTN, hypothyroidism, SARAH, and anemia of chornic disease who was admitted on for sepsis secondary to pressure induced deep pressure ulcer, stage IV, corticol bone destruction, 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 ER Course: In the ED: Blood pressure 98/47, heart rate 118, saturating 97-100% on 3 L nasal cannula. Labs showed WBC count 13.4, D-dimer 3200, ABG showed pH of 7.41, pCO2 36, pO2 72 L. Sodium 135, potassium 3.7, chloride 102, carbon dioxide 23.1, BUN 11, creatinine 0.6, glucose 115, osmolality 270, lactic acid 2.4 down trended to 1.7, magnesium 1.5, T. bili 1.8, AST 121, ALT 54, alkaline phosphatase 78, C-reactive protein 6.3, BNP 254, TSH 10.97, Pro-Peter 0.91. UA showed 4+ bacteria, cultures were sent. EKG showed A-fib with RVR. Abdomen pelvis showed CBD 14 mm, soft tissue defect posterior to the lower sacrum and coccyx with cortical bone destruction involving the coccygeal segments. Chest CTA was negative for PE, showed bibasilar pneumonia. Head CT was negative for acute pathology. Abdominal ultrasound showed cholelithiasis with gallbladder wall thickening, mild to dilated CBD, recommended MRCP. Dr. Nguyen, general surgeon was consulted, agreed to consult, low suspicion for acute choledocholithiasis. Hospital Course During hospital course, patient was started on broad-spectrum antibiotics treated with ceftriaxone 2 g and vancomycin given cortical bone destruction noted on CT abdomen pelvis on 02/19/2025 showing soft tissue defect posterior to the lower scrotum and cocci with cortical bone destruction involving the coccygeal segments. MRI pelvis 02/22/2025 being a poor study as patient continued to move during MRI. Infectious disease consulted recommending ceftriaxone 2 g IV and doxycycline through April 04. IR consulted for PICC line placement which failed patient be going home with a Central Tunnel which should be removed after after completion of IV antibiotics. During hospitalizations patient developed atrial fibrillation with RVR, already on Eliquis, and digoxin added per recommendations of cardiology. Patient has remained rate controlled on digoxin. Patient noted to have pneumonia with effusion likely secondary to community-acquired. No thoracentesis warranted given not enough fluid to proceed to drainage. Dual antibiotic coverage with ceftriaxone. Patient will be discharge on IV antibiotics Ceftriaxone and oral doxycyline to complete 6 week course until April 04. Instructions: IV Rocephin 2 gm/day and oral doxycyline 100 twice daily through April 04 to complete 6 week course of antibiotics for osteomyelitis and PICC line to be discontinued after the last dose of antibiotics. -Please follow weekly CBC, Renal Panel, ESR and follow with primary care as outpatient , until the duration of antibiotics. -Please follow up with your primary care provider within one week of discharge and see if you need to resume Furosemide and PCP to re-evaluate behavioral health medications. -Please do daily weight checks and monitor of increase water retention -If your symptoms worsen,please seek immediate medical attention and return to your nearest emergency room -If you do not have a primary care provider, you may follow up at the [facility] at 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 #Restrictive Cardiomyopathy #Severe Pulmonary HTN #History Hypertension #Hyperlipidemia #History of hypothyoidism, s/p thyroidectomy #Cholelithiasis #History of Anxiety #Asymtomatic Bacteruiria - The patient's plan was discussed with attending Dr. Irma Peterson MD PGY1 Internal Medicine Time Spent with Patient Time attestation: Total time spent providing and/or coordinating discharge services: at least 30 minutes of care and coordination Time spent: Greater than 30 minutes Home Health Home Health Referral Orders: 02/24/25 14:29 Home Health Referral Routine Reason For Exam: IV antibiotics Home-Bound The patient must either because of illness or injury, need the aid of supportive devices such as crutches, canes, wheelchairs, and walkers; the use of special transportation; or the assistance of another person in order to leave their place of residence; OR have a condition such that leaving his or her home is medically contraindicated. In addition, the patient also meets the following criteria: patient is normally unable to leave the home and leaving home requires considerable taxing effort. Addendum to Home Health Certification Practitioner's Certification: I certify that the patient has been under my care in the hospital and the care of attending physician (see below). We had a njrm-ay-gitk encounter on (see date below). My clinical findings indicate that the patient is home bound per the above criteria and the Home Health Services noted in these orders are medically necessary. The primary reason for the gugp-qr-hjke encounter is related to the fact that the patient requires home health services. Date Certifying Ksbf-gj-Okhk Physician Encounter: 02/20/25 Physician's Name who will Assume Oversight for Services: Mike Cisse Physician's Phone No.who will Assume Oversight for Service: SINGLE ENDING MACHINE OPERATOR - Community Resources: Yes PT to Evaluate: Yes PT to evaluate and provide a treatmnet plan to increase patient's mobility and strength. Wound Care: Yes Home Health RN - Wound Care Order: Sacral decubitus ulcer IV Therapy: Yes IV Medication: Ceftriaxone IV Dose: 2 g IV Frequency: daily IV Stop Date: 04/04/25 Discontinue PICC Line Once Treatment Complete: Yes RN Safety Evaluation: Yes RN to evaluate and create a plan of care that will produce positive outcomes. Palliative Treatment: No Palliative treatment and evaluate the need for hospice. Home Health Aide - Personal Care: Yes Home Health Aide to assist with any ADL's. Exam Vital Signs Temp Pulse Resp BP Pulse Ox O2 Del Method O2 Flow Rate 97.0 F 78 24 H 128/70 100 Nasal Cannula 1 02/25/25 08:00 02/25/25 09:23 02/25/25 09:23 02/25/25 08:00 02/25/25 09:23 02/25/25 08:00 02/25/25 09:23 Narrative Exam General Appearance: Alert & Oriented X3, thin female who is lying in bed in no acute distress HEENT: Skull symmetrical and atraumatic. Conjunctivae pale pink and moist. Pupils equal, round, reactive to light and accommodation (PERRL). External ear without lesion or discharge. Straight, nares patient, mucosa pink, no discharge. No thyroid nodule appreciated. No cervical lymphadenopathy. Cardio: Normal Rate and Rhythm with S1 and S2 heart sounds. No murmurs or extra heart sounds auscultated. No bruits on carotid auscultation. No peripheral edema or cyanosis. Lungs: Symmetric with good expansion. Chest and back non-tender. Breath sounds vesicular without crackles, wheezing or rhonchi Abdomen: Non-tender, Non-distended, Normal Reactive Bowel Sounds Neuro: Alert, cooperative, oriented to person, place, and time. Speech clear. CN grossly intact. Upper motor strength 5/5 and Lower motor strength 5/5. Sensation intact. Discharge Plan Plan Patient Disposition: Home w/HOME HEALTH Patient condition on transfer: Stable Care Plan Goals: Instructions: -IV Rocephin 2 gm/day and oral doxycyline 100 twice daily through April 04 to complete 6 week course of antibiotics for osteomyelitis and Central Tunnel line to be discontinued after the last dose of antibiotics. -Please follow weekly CBC, Renal Panel, ESR and follow with primary care as outpatient , until the duration of antibiotics. -Digoxin 0.125 oral daily for atrial fibrillation. Please follow up with Dr. Witt, your gym supervisor, for dose adjustments and Digoxin levels. -Please follow up with your primary care provider within one week of discharge and see if you need to resume Furosemide and PCP to re-evaluate behavioral health medications. -Please do daily weight checks and monitor of increase water retention -If your symptoms worsen,please seek immediate medical attention and return to your nearest emergency room -If you do not have a primary care provider, [facility] [address], [place] [address], Prescriptions/Referrals Prescriptions/Med Rec: New doxycycline hyclate 100 mg capsule 100 mg PO BID 39 Days Qty: 78 0RF mirtazapine 15 mg Tablet 15 mg PO QDAY 30 Days Qty: 30 0RF ceftriaxone 2 gram recon soln 2 g IV QDAY 38 Days Qty: 10 3RF digoxin 125 mcg (0.125 mg) tablet 125 mcg PO QDAY 30 Days Qty: 30 0RF ascorbic acid (vitamin C) 500 mg capsule 500 mg PO BID 10 Days Qty: 20 0RF zinc sulfate 50 mg zinc (220 mg) capsule 50 mg PO QDAY 10 Days Qty: 10 0RF Continued levothyroxine 100 mcg Tablet 100 mcg PO QDAY Qty: 0 pantoprazole 40 mg Tablet,Delayed Release (Dr/Ec) 40 mg PO QDAY loratadine 10 mg Tablet 10 mg PO QDAY Eliquis 2.5 mg tablet 2.5 mg PO BID hydrocodone-acetaminophen 10-325 mg tablet 1 tab PO QID PRN (Reason: Pain) buspirone 7.5 mg tablet 7.5 mg PO TID sertraline 50 mg tablet 150 mg PO TID budesonide-formoterol [Symbicort] 160-4.5 mcg/actuation HFA aerosol inhaler 2 inh INHALATION BID cholecalciferol (vitamin D3) [Vitamin D3] 125 mcg (5,000 unit) Tablet 125 mcg PO QDAY pravastatin 40 mg tablet 40 mg PO HS ergocalciferol (vitamin D2) 1,250 mcg (50,000 unit) capsule 1,250 mcg PO .once a week Patient Comments: TAKE ONE CAPSULE BY MOUTH every friday VITAMIN trazodone 50 mg tablet 50 mg PO HS PRN (Reason: sleep) Patient Comments: TAKE ONE TABLET BY MOUTH AT BEDTIME NEEDED FOR SLEEP raloxifene 60 mg tablet 60 mg PO DAILY Patient Comments: TAKE ONE TABLET BY MOUTH EVERY DAY calcium carbonate-vitamin D3 600 mg-10 mcg (400 unit) tablet 1 tab PO BID Patient Comments: TAKE ONE TABLET BY MOUTH TWICE DAILY VITAMIN Held doxepin 25 mg capsule 25 mg PO HS Hold Instructions: Please hold until you follow your primary care provider doxepin 10 mg capsule 10 mg PO HS Hold Instructions: Please hold until you follow your primary care provider Patient Comments: TAKE ONE CAPSULE BY MOUTH AT BEDTIME Discontinued clonidine HCl 0.1 mg tablet 0.1 mg PO BID Qty: 60 0RF clonidine HCl 0.2 mg tablet 0.2 mg PO BID furosemide [Lasix] 20 mg tablet 20 mg PO QDAY Qty: 30 0RF mirtazapine 30 mg tablet 30 mg PO HS Patient Comments: TAKE ONE TABLET BY MOUTH AT BEDTIME Referrals: Mike Cisse MD [Primary Care Provider] - Patient/Caregiver Discharge Instructions Education Materials: Thoracentesis Dc, AFL/Afib, Osteomyelitis Dc Print Language: Beninese Stand Alone Forms: [employer] Award Info., Patient Portal Info Letter Quality Discharge Quality Measures VTE prophylaxis MD Attestestation MD Attestation I reviewed labs, imaging, EKG, home medications and prior available records. Face to face evaluation was performed by me. I have personally examined the patient and discussed assessment and plan with the IM team. I reviewed the resident note and agree with the plan with exceptions as below. Sepsis secondary to pneumonia versus osteomyelitis Possible osteomyelitis of sacrum Acute E. coli UTI Atrial fibrillation with RVR Decubitus ulcer of sacrum, unstageable Bilateral pleural effusions On 02/25, patient developed hypoglycemia. Started D5W Nausea and vomiting improved. Discussed with cardiology: Resumed digoxin 125 mcg. Outpatient follow-up with cardiology Continue wound care Consulted ID: Recommended IV Rocephin and doxycycline till 04/04. Unsuccessful PICC line placement by IR. Discussed with IR: Recommended port a cath. Consulted surgery for that and contacted Dr. Archibald who recommended other alternatives. Discussed again with IR: Can place tunneled catheterization. Discussed with transfer nurse to check if it is possible to administer the medication through that line via home health Consulted IR for pleurocentesis. Dangerous to do given that he is close to heart Ordered MRCP that showed no common bile duct stones Pelvic MRI: Nondiagnostic study given the significant motion however showed significant stool amount. Ordered oil enema Ordered echocardiogram Consulted surgery: No indication for surgical intervention Ordered PT evaluation: Recommended SNF. Discussed with older adult social work specialist. Patient wants to go home. Ordered home health for the IV antibiotic Time spent is 40 minutes. More than 50% of the time was spent on patient education and coordination of care.
[2025-02-25] MEDS: COLLAGENASE OINT 30 GM TUBE TOP (13:20)
--- NOTE | 2025-02-25 15:05 | PC.CM ---
Addendum entered by Paulette Neely RN 02/25/25 16:37: Referral to home health with ABX canceled. Patient will be going home with hospice. [facility] notified. Original Note: Patient is needing IV ABX with home health. [facility] are interested. Patient in pending access line placement.
--- NOTE | 2025-02-25 15:30 | PC.NURSE ---
went to pick patient up for procedure, when i was in the room daughter Teagan Mitchell (decission maker) said that she wouldnt want to proceed with the procedure, Priscila PULIDO aware and was there at bedside as well Helen said she will talk to MD to see what other options are there for patient
--- NOTE | 2025-02-25 16:08 | ESPR_ITS ---
RE: KIM PARADA : 1940 DATE OF SERVICE: 02/25/2025 SUBJECTIVE: Ms. Parada' condition stays the same. The patient is resting fairly comfortably in bed. The patient is breathing well. Denies any complaints of chest pain. Denies any complaints of skipped beats or palpitations. OBJECTIVE: Vital Signs: Blood pressure today is 137/89, pulse rate is 87 and irregularly irregular, respiratory rate is 18, temperature is 97.9, the oximetry saturation on 1 liter of oxygen by nasal cannula is 93%. Heart: Irregular irregular heart rhythm. Lungs: Few basal rhonchi. Extremities: No pedal edema is noted. LABORATORY DATA: Today shows WBC count is 11,300, hemoglobin 11.4 with hematocrit of 32.9. The patient's BUN today is 8, creatinine 0.4, potassium level is 3.5. The patient's digoxin blood level today is down to within the therapeutic range and is 1.5. PLAN: Plan to start the patient back on p.o. digoxin as 0.125 mg daily. Rest of the medications will be continued as before. Discharge planning will be as per the hospitalist. Cardiac status at the present time is stable. DT: 14:29:51 TT: 16:07:00 Ref: [id number] - TID: [id number]
--- NOTE | 2025-02-25 16:21 | PC.SS ---
Follow up note: SS spoke to DIRECTOR REGULATORY COMPLIANCE and patient's family wants to d/c with [facility] at SNF. SS submitted inquiry through [facility]. DIRECTOR REGULATORY COMPLIANCE states patient's preference is [facility]. Will follow up tomorrow a.m.
--- NOTE | 2025-02-25 16:21 | PC.SS ---
HANDICAPPER HARNESS RACING present as resident confirmed with patient's son, Codey Montanez ; plan to transition the patient to SNF with hospice services. HANDICAPPER HARNESS RACING confirmed preferred SNF is [facility]. Preferred hospice agency is [facility]. account services associate informed to provide update to son's daughter, Carla Alves . HANDICAPPER HARNESS RACING met with patient's grand daughter, Carla Alves; to provide update. Granddaughter confirmed update. HANDICAPPER HARNESS RACING provided update to medical planner.
--- NOTE | 2025-02-25 17:34 | EVENTNT_ITS ---
Documentation for date of: 02/25/25 Event Note Event Note: Event Note-Goals of Care Family discussion with mental health social workerSurjit, resident physician, and family member including Codey who was patient's son and next of kin. Family declined tunneled central cath as they wish to keep patient comfortable and reduce invasive procedures. At this time, patient and family have decided to proceed with oral antibiotics for pressure induced ulcer and possible osteomyelitis of cocci bone. Hospice facility request. DNR. - The patient's plan was discussed with attending Dr. Irma Peterson MD PGY1 Internal Medicine
[2025-02-25] MEDS: DEXTROSE 50%-WATER INJ 50 ML SYRINGE 25 ML IV ×2 (18:18→22:11)
[2025-02-25] MEDS: ATORVASTATIN CALCIUM 20 MG TABLET 40 MG PO (21:02)
[2025-02-26] VITALS (8 sets, daily range): BP systolic 124–139; BP diastolic 66–92; PULSE 70–87; RESP 12–21; TEMP 36.1–37.1; O2SAT 96–99
[2025-02-26] MEDS: BusPIRone HCL 5 MG TABLET 7.5 MG PO ×3 (05:10→21:09)
[2025-02-26] MEDS: LEVOTHYROXINE SODIUM 100 MCG TABLET PO (05:10)
[2025-02-26] MEDS: DEXTROSE 10%-WATER 500 ML 50 ML IV ×2 (08:40→18:54)
[2025-02-26] MEDS: SENNA TABLET 1 TAB PO (09:18)
[2025-02-26] MEDS: ASCORBIC ACID 250 MG TABLET 500 MG PO ×2 (09:18→21:08)
[2025-02-26] MEDS: SERTRALINE HCL 25 MG TABLET 150 MG PO (09:18)
[2025-02-26] MEDS: APIXABAN 2.5 MG TABLET PO ×2 (09:18→21:09)
[2025-02-26] MEDS: ZINC SULFATE 220 MG CAPSULE PO (09:18)
[2025-02-26] MEDS: CALCIUM CARBONATE 600 MG TABLET PO (09:19)
[2025-02-26] MEDS: COLLAGENASE OINT 30 GM TUBE TOP (10:02)
[2025-02-26 10:45] LABS: Basophils # (Auto) 0.1 Thou/mm3 (0.0-0.2); Basophils % (Auto) 0 % (0-2.5); Eosinophils # (Auto) 0.2 Thou/mm3 (0.0-0.5); Eosinophils % (Auto) 2 % (0-10); Hematocrit 34.4 % (36.0-46.0); Hemoglobin 11.7 g/dL (12.0-16.0); Immature Granulocytes % (Auto) 0 % (0-0); Immature Granulocytes Auto 0.05 Thou/mm3 (0.00-0.00); Lymphocytes % (Auto) 16 % (10-50); Mean Corpuscular Hemoglobin 29.8 pg (25.0-35.0); Mean Corpuscular Volume 88 fL (80-100); Monocytes % (Auto) 8 % (0-12); Neutrophils # (Auto) 8.7 Thou/mm3 (1.8-7.7); Neutrophils % (Auto) 73 % (37-80); Nucleated Red Blood Cell % 0 /100 WBC (0); Platelet Count 348 Thou/mm3 (140-440); RDW Standard Deviation 54.8 fL (36.4-46.3); Red Blood Count 3.92 Miln/mm3 (4.00-5.20)
[2025-02-26 10:52] LABS: Alanine Aminotransferase 53 U/L (10-49); Albumin, Serum 2.6 gm/dL (3.4-4.8); Albumin/Globulin Ratio 0.9 (1.2-2.2); Alkaline Phosphatase 77 U/L (46-116); Anion Gap 6 (7-16); Aspartate Amino Transferase 127 U/L (0-34); BUN/Creatinine Ratio 15 Ratio (12-20); Bilirubin,Total 0.9 mg/dL (0.3-1.2); Blood Urea Nitrogen 6 mg/dL (9-23); Calcium 7.8 mg/dL (8.3-10.6); Calcium (Corrected) 8.9 mg/dL (8.5-10.1); Carbon Dioxide 28.4 mMol/L (20.0-31.0); Chloride 101 mMol/L (98-107); Creatinine (Component) 0.4 mg/dL (0.6-1.3); Digoxin 1.2 ng/mL (0.8-2.0); Estimated Creatinine Clearance 71.9 mL/min (>60); Glucose 109 mg/dL (74-106); Magnesium 1.6 mg/dL (1.6-2.6); Osmolality,Calculated 268 (275-295); Sodium 135 mMol/L (136-145); Total Protein 5.6 gm/dL (5.7-8.2); eGFR > 60 See Note
--- NOTE | 2025-02-26 10:54 | PC.SS ---
UPdate: [facility] states [facility] can accept patient on hospice. [facility] is pending a decision. This is family's first choice. SS updated daughter-in- law, who is coming in to hospital setting. Preferred hospice is [facility].
--- NOTE | 2025-02-26 15:53 | ESPR_ITS ---
Documentation for date of: 02/26/25 Subjective Subjective Interval history: No overnight events for patient. Patient continues have poor oral intake. Dextrose @ 50 cc started to end on 02/27/2025. Continue to monitor glucose. Exam Vital Signs Temp Pulse Resp BP Pulse Ox O2 Del Method O2 Flow Rate 98.7 F 77 20 139/92 H 97 Nasal Cannula 1 02/26/25 12:00 02/26/25 12:00 02/26/25 12:00 02/26/25 12:00 02/26/25 12:00 02/26/25 12:00 02/26/25 12:00 Narrative Exam General Appearance: Alert & Oriented X2, well-nourished female who is lying in bed in mild discomfort when patient was rolled over to appreciate ulcer. Ulcer is foul smelling and appears to a purulent discharge. HEENT: Skull symmetrical and atraumatic. Conjunctivae pale pink and moist. Pupils equal, round, reactive to light and accommodation (PERRL). External ear without lesion or discharge. Straight, nares patient, mucosa pink, no discharge. No thyroid nodule appreciated. No cervical lymphadenopathy. Cardio: Normal Rate and Rhythm with S1 and S2 heart sounds. No murmurs or extra heart sounds auscultated. No bruits on carotid auscultation. No peripheral edema or cyanosis. Lungs: Symmetric with good expansion. Chest and back non-tender. Breath sounds vesicular with rhonchi Abdomen: Non-tender, Non-distended, Normal Reactive Bowel Sounds, Negative Chilel's sign. Neuro: Yes Alert, cooperative, oriented to person, place, and time. Speech clear. CN grossly intact. Upper motor strength 5/5 and Lower motor strength 3/5. Sensation intact. Objective Labs 02/27/25 07:00 02/27/25 07:00 Labs: Laboratory Results - last 24 hr 02/26/25 10:06 WBC 12.0 H RBC 3.92 L Hgb 11.7 L Hct 34.4 L MCV 88 MCH 29.8 MCHC 34.0 RDW Std Deviation 54.8 H Plt Count 348 D Neut % (Auto) 73 Lymph % (Auto) 16 [place] % (Auto) 8 Eos % (Auto) 2 Baso % (Auto) 0 Neut # (Auto) 8.7 H Lymph # (Auto) 2.0 [place] # (Auto) 1.0 H Eos # (Auto) 0.2 Baso # (Auto) 0.1 Immature Gran # (Auto) 0.05 H Absolute Nucleated RBC 0.00 Immature Gran % 0 Nucleated RBC % 0 Sodium 135 L Potassium 3.0 L D Chloride 101 Carbon Dioxide 28.4 Anion Gap 6 L BUN 6 L Creatinine 0.4 L Estim Creat Clear Calc 71.9 eGFR > 60 BUN/Creatinine Ratio 15 Glucose 109 H D Calculated Osmolality 268 L Calcium 7.8 L Corrected Calcium 8.9 Magnesium 1.6 Total Bilirubin 0.9 AST 127 H ALT 53 H Alkaline Phosphatase 77 Total Protein 5.6 L Albumin 2.6 L Globulin 3.0 Albumin/Globulin Ratio 0.9 L Digoxin 1.2 ABG Interpretation ABG results: 02/19/25 18:52 ABG pH 7.41 ABG pCO2 36 ABG pO2 72 L ABG HCO3 23 ABG O2 Saturation 95 ABG Base Excess -2 Quality Measures Quality Measures VTE prophylaxis Advance care planning discussed with:: patient and child Assessment & Plan Assessment Current Active Medications: Generic Name Dose Route Start Last Admin Trade Name Freq PRN Reason Stop Dose Admin Acetaminophen 650 mg 02/20/25 02:06 Acetaminophen 325 Mg Tablet PO 03/22/25 02:05 Q6H PRN Fever >100.3 or pain 1-3 Apixaban 2.5 mg 02/20/25 09:00 02/26/25 09:18 Apixaban 2.5 Mg Tablet PO 03/22/25 08:59 2.5 mg BID ALBINA Administration Ascorbic Acid 500 mg 02/23/25 09:00 02/26/25 09:18 Ascorbic Acid 250 Mg Tablet PO 03/08/25 08:59 500 mg BID ALBINA Administration Atorvastatin Calcium 40 mg 02/20/25 21:00 02/25/25 21:02 Atorvastatin Calcium 20 Mg Tablet PO 03/22/25 20:59 40 mg HS ALBINA Administration Buspirone HCl 7.5 mg 02/20/25 06:00 02/26/25 14:08 Buspirone Hcl 5 Mg Tablet PO 03/22/25 05:59 7.5 mg TID ALBINA Administration Calcium Carbonate 600 mg 02/25/25 09:00 02/26/25 09:19 Calcium Carbonate 600 Mg Tablet PO 03/27/25 08:59 600 mg QDAY ALBINA Administration Collagenase 0 gm 02/21/25 10:45 02/26/25 10:02 Collagenase Oint 30 Gm Tube TOP 03/23/25 10:44 1 applicatio QDAY ALBINA Administration Dextrose 25 ml 02/25/25 16:37 02/25/25 22:11 Dextrose 50%-Water Inj 50 Ml Syringe IV 03/27/25 16:36 25 ml Q15MIN PRN Administration BG 50-70 responsive npo pt Dextrose 50 ml 02/25/25 16:37 Dextrose 50%-Water Inj 50 Ml Syringe IV 03/27/25 16:36 Q15MIN PRN BG <50 OR BG <70 & pt unresponsive Digoxin 0.125 mg 02/23/25 09:00 Digoxin 0.125 Mg Tablet PO 03/25/25 08:59 QDAY ALBINA Glucagon 1 mg 02/25/25 16:37 Glucagon Inj 1 Mg Vial IM Q15MIN PRN BG <70, and no IV access Dextrose 500 mls @ 50 mls/hr 02/26/25 08:45 02/26/25 08:40 D10w IV 02/27/25 04:44 50 mls/hr .Q10H ALBINA Administration Levothyroxine Sodium 100 mcg 02/20/25 06:00 02/26/25 05:10 Levothyroxine Sodium 100 Mcg Tablet PO 03/22/25 05:59 100 mcg ACBR ALBINA Administration Magnesium Hydroxide 30 ml 02/20/25 02:06 Milk Of Magnesia Susp 30 Ml Udc PO 03/22/25 02:05 QDAY PRN CONSTIPATION Protocol Melatonin 3 mg 02/20/25 16:53 02/25/25 01:16 Melatonin 3 Mg Tablet PO 03/22/25 20:59 3 mg HS PRN Administration anxiety Mirtazapine 15 mg 02/25/25 21:00 02/25/25 21:02 Mirtazapine 15 Mg Tablet PO 03/26/25 08:59 15 mg HS ALBINA Administration Ondansetron HCl 4 mg 02/20/25 02:06 Ondansetron Inj 2 Mg/Ml Inj 2 Ml IV 03/22/25 02:05 Q6H PRN NAUSEA OR VOMITING Protocol Sennosides 1 tab 02/22/25 09:00 02/26/25 09:18 Senna Tablet PO 03/24/25 08:59 1 tab QDAY ALBINA Administration Protocol Sertraline HCl 150 mg 02/20/25 09:00 02/26/25 09:18 Sertraline Hcl 25 Mg Tablet PO 03/22/25 08:59 150 mg QDAY ALBINA Administration Zinc Sulfate 220 mg 02/23/25 09:00 02/26/25 09:18 Zinc Sulfate 220 Mg Capsule PO 03/08/25 08:59 220 mg QDAY ALBINA Administration Plan Patient is an 84-year-old female with a past medical history of hypertension, hyperlipidemia, atrial fibrillation (Eliquis), Pulmonary HTN, hypothyroidism, SARAH, and anemia of chornic disease who was admitted on for sepsis secondary to soft tissue infection and CAP. 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 No surgical intervention at this time. MRI nondiagnostic as patient cotinued to move. PT-->recommending rufus lift for home if SNF denied. 02/24/2025: Vanco d/c-->doxy Plan: -PICC line failed, consult surgery, possible port a cath vs oral -Ceftriaxone 2 grams (02/19/2025) & Doxycline 100 mg BID 02/24/2025-D/c by ID -Wound care -consider wound culture, but likely will be poor sample given location -Add AM: Vitmain C 500 mg BID, Zinc Sulfate 220 once daily for 14 days -Consult ID, DR. Pierce, appreciate recommendations. -General Surgery Consulted, Dr. Nguyen, appreciate recommendations #Bibasilar pneumonia w/ bilateral moderate bilateral pleural effusion #Community Acquired Pneumonia #Sepsis secondary CAP w/ bilateral pleural effusion , resolved #Acute hypoxic respiratory failure, improved Patient presented with acute hypoxic respiratory failure, requiring oxygen as patient spO2 as low as 62% requiring addition oxygen support in the ER on nasal canual of 4 liters. Patient was noted to have bibasilar pneumoina with bilateral moderate plerual effusion. Likely secondary to community acquired pneumonia GPC. Previous imagining did not show pleural effusion. Meeting SIRs criteria: tachycardia, tachypenia, elevated WBC count w/ source of infection. Lactic acid 2.4-->1.7 DDx: Aspiration can not be rule out. Viral less likely as flu and covid negative vs Less likely malignancy as family denied any weight loss but patient has had decreased appetite over the last 3 days. CTA chest negative w/ elevated D-Dimers likely secondary to infectious process. 02/21/2025-insufficient pleural fluid for thoracentesis 02/22/2025: blood culture negative after 48 hours, no sputum culture collected. Cocci IgM/IgG negative 02/23/2025: rocephin 2 gm/day and po doxy 100 bid and weekly cbc, renal panel, esr on iv rx and remove line at end of rx 02/24/2025: PICC line failed, Doxycylcine added & Ceftriaxone IV for 6 weeks. 02/26/2025-hospice, overall poor oral intake SOFA 2 Plan -Ceftriaxone 2 gm Qday (covering osteo as well) 02/19/2025-dc by ID -Doxycyline 02/24/2025, d/c ID Pressure Mattress Positioning QS -Ensure protein -consider small bolus of 250 if BP drops #Hypoglycemia #Poor Oral intake Decreased oral intake despite restarting Mirtazipine. Plan -Dextrose @50 CC -Hypoglycemic protocals. #Atrial Fibrillation #Atrial Fibrillation, w/ rvr, resolved. Patient has a past medical history of atrial Fibrillation rate controlled previously on Carvedilol which was D/C last year and remained on Eliquis 2.5 BID. Atrial fibrillation likley triggered by pneumonia versus soft tissue infection 02/23/2025-skipped dose this morning given elevated digoxin levels, if patient develop afib w/ rvr please give short acting does of metroprolol Plan -Digoxin 0.125 -Holding Eliquis 2.5 mg BID, possible port a cath -Cardiology consulted, appreciate recommendations #Restrictive Cardiomyopathy #Severe Pulmonary HTN #History Hypertension Patient has a past medical history of hypertension with systolic blood pressures <140 and no anti-hypertensives in medication list. Currently holding off on blood pressure medication given soft blood pressure. Echo 2024: EF 50-55%, RVSP 65.7, Severe PAH Restrictive Cardiomyopathy . Moderate to Severe TR Plan -Monitor Blood Pressure #Hyperlipidemia Home medication of Pravastatin 40 mg HS. 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 Plan -Resume home medication Levothyroxine 100 mg ACBR #Cholelithiasis CT abdomen/pelvis CT noted to have a common bile duct 14 mm and follow up us of gallbladder showing multiple stones and common bile duct 0.9, thus less choledocholithiasis. Chilel's sign negative w/ soft abdomen. MRCP common hepatic bile duct 10 mm but no common bile duct or common hepatic duct stones. Plan -continue to trend AST/ALT -Surgery Consulted, Dr. Nguyen, no surgical intervention planned. #History of Anxiety Continue home medication of Sertraline and Busprione. Plan -Continue Sertraline 150 mg qday and Buspirone 7.5 mg TID -Melatonin HS PRN #Asymtomatic Bacteruiria Urine culture positive with E. coli, denied dysuria or increased frequency. Non- tender supra-pubic region. Plan -dual coverage with ceftriaxone for osteo #Intractable Nausea and Vomting, resolved. #Moderate hepatomegaly, noted on CT abdomen Health Maintenance: Disp: Pt is currently admitted to floors for further management of sepsis secondary to pressure induced ulcer, hospice FEN: Diet cardiac, ensure plus high protien, Judson DVT: Eliquis 2.5 mg BID (active) and Compression Device Code: DNR Attending Provider Attestation/Addendum Ena Rodriguez DO, attest that I was physically present for the lang portions of the service and evaluated the patient with the resident and I reviewed and discussed the case with the resident and agree with the resident's findings and plans of care as documented above Family at bedside. Pending discharge to SNF under hospice. Continue with current management. All questions and concerns were addressed at bedside with patient's son, grandson and his .
--- NOTE | 2025-02-26 18:01 | ESPR_ITS ---
RE: KIM PARADA : 1940 DATE OF SERVICE: 02/26/2025 SUBJECTIVE: Mr. Parada' condition stays the same. The patient is resting comfortably in bed. The patient is breathing fairly well. The patient is not having any symptoms of chest pain. Denies any complaint of fever or chills. The patient continues to persist in atrial fibrillation with controlled ventricular response. PHYSICAL EXAMINATION: Vital Signs: The patient's blood pressure is 129/83, pulse rate is 74, respirations are 20, temperature is 98.6, the oximetry saturation is 97%. Heart: Irregularly irregular heart rhythm. Lungs: Slightly decreased breath sounds at the bases. Extremities: No pedal edema is noted. LABORATORY DATA: [place] [address], hemoglobin 11.7 with hematocrit of 34.4. The patient's BUN today is 6, creatinine 0.4, potassium level is on the lower side and the patient is getting potassium replacement. The patient's digoxin blood level today is in the therapeutic range and is 1.2. PLAN: Plan to continue the patient on IV. All present medications and genital supportive care. The patient is being evaluated for possible hospice care and possible discharge in a day or two. Cardiac status at the present time is stable. DT: 17:12:21 TT: 17:57:00 Ref: [id number] - TID: [id number] MTDD
[2025-02-26] MEDS: ATORVASTATIN CALCIUM 20 MG TABLET 40 MG PO (21:09)
[2025-02-26] MEDS: MIRTAZAPINE 15 MG TABLET PO (21:09)
[2025-02-27] VITALS (8 sets, daily range): BP systolic 122–137; BP diastolic 60–79; PULSE 78–97; RESP 16–25; TEMP 36.1–36.8; O2SAT 95–100
[2025-02-27] MEDS: LEVOTHYROXINE SODIUM 100 MCG TABLET PO (05:18)
[2025-02-27] MEDS: BusPIRone HCL 5 MG TABLET 7.5 MG PO ×2 (05:18→13:32)
[2025-02-27 07:31] LABS: Alanine Aminotransferase 66 U/L (10-49); Albumin, Serum 2.7 gm/dL (3.4-4.8); Albumin/Globulin Ratio 0.9 (1.2-2.2); Alkaline Phosphatase 79 U/L (46-116); Anion Gap 7 (7-16); Aspartate Amino Transferase 155 U/L (0-34); BUN/Creatinine Ratio 13 Ratio (12-20); Blood Urea Nitrogen < 5 mg/dL (9-23); Calcium 7.8 mg/dL (8.3-10.6); Calcium (Corrected) 8.8 mg/dL (8.5-10.1); Carbon Dioxide 28.7 mMol/L (20.0-31.0); Chloride 102 mMol/L (98-107); Creatinine (Component) 0.4 mg/dL (0.6-1.3); Estimated Creatinine Clearance 73.6 mL/min (>60); Globulin 2.9 gm/dL (2.3-3.5); Glucose 84 mg/dL (74-106); Magnesium 1.5 mg/dL (1.6-2.6); Osmolality,Calculated 271 (275-295); Phosphorous 1.9 mg/dL (2.4-5.1); Sodium 138 mMol/L (136-145); Total Protein 5.6 gm/dL (5.7-8.2); eGFR > 60 See Note
[2025-02-27 07:33] LABS: Potassium 2.6 mMol/L (3.4-5.1)
[2025-02-27 07:42] LABS: Basophils # (Auto) 0.1 Thou/mm3 (0.0-0.2); Basophils % (Auto) 0 % (0-2.5); Eosinophils # (Auto) 0.2 Thou/mm3 (0.0-0.5); Eosinophils % (Auto) 1 % (0-10); Hematocrit 34.9 % (36.0-46.0); Hemoglobin 12.2 g/dL (12.0-16.0); Immature Granulocytes % (Auto) 1 % (0-0); Immature Granulocytes Auto 0.06 Thou/mm3 (0.00-0.00); Lymphocytes # (Auto) 1.7 Thou/mm3 (1.0-4.8); Lymphocytes % (Auto) 13 % (10-50); Mean Corpuscular Hemoglobin 30.6 pg (25.0-35.0); Mean Corpuscular Volume 88 fL (80-100); Monocytes # (Auto) 1.2 Thou/mm3 (0.0-0.8); Monocytes % (Auto) 9 % (0-12); Neutrophils # (Auto) 10.1 Thou/mm3 (1.8-7.7); Neutrophils % (Auto) 76 % (37-80); Nucleated Red Blood Cell % 0 /100 WBC (0); Platelet Count 326 Thou/mm3 (140-440); RDW Standard Deviation 54.4 fL (36.4-46.3); Red Blood Count 3.99 Miln/mm3 (4.00-5.20); White Blood Count 13.3 Thou/mm3 (3.6-11.0)
[2025-02-27] MEDS: SERTRALINE HCL 25 MG TABLET 150 MG PO (08:35)
[2025-02-27] MEDS: CALCIUM CARBONATE 600 MG TABLET PO (08:35)
[2025-02-27] MEDS: ZINC SULFATE 220 MG CAPSULE PO (08:36)
[2025-02-27] MEDS: Magnesium Sulfate 2 GM Ivpb 2 GM/50 ML BAG IV (08:36)
[2025-02-27] MEDS: POTASSIUM CHL 10 mEq IVPB 10 MEQ/100 ML BAG 60 MEQ IV ×4 (08:36→15:57)
[2025-02-27] MEDS: SENNA TABLET 1 TAB PO (08:36)
[2025-02-27] MEDS: APIXABAN 2.5 MG TABLET PO (08:36)
[2025-02-27] MEDS: ASCORBIC ACID 250 MG TABLET 500 MG PO (08:36)
[2025-02-27] MEDS: POTASSIUM CHLORIDE 20 mEq TABCR 40 MEQ PO (08:54)
--- NOTE | 2025-02-27 11:12 | PC.SS ---
[employer] met with patient's family to provide update that preferred facility, [facility]; has declined patient for placement. SENIOR NETWORK SECURITY ENGINEER informed family that [facility] has accepted patient. Family in favor of transitioning patient to [facility].
--- NOTE | 2025-02-27 11:14 | PC.SS ---
[employer] contacted [facility] staff, [place], confirmed facility can accept patient with [facility] hospice. [employer] to arrange transport.
--- NOTE | 2025-02-27 11:15 | PC.SS ---
Addendum entered and electronically signed by JEREMY Irby 02/27/25 11:51: [facility] to provide transport. D/C packet prepared. Original Note: Transport scheduled for 03:00 pm today to [facility]. [employer] notified SNF, hospice agency, patient's family and bedside nurse.
[2025-02-27] MEDS: COLLAGENASE OINT 30 GM TUBE TOP (14:17)
--- NOTE | 2025-02-27 22:17 | ESDS_ITS ---
<Statement entered by Ena Wolff DO - 02/28/25 07:37> I, Ena Wolff DO, attest that I was physically present for the lang portions of the service and evaluated the patient with the resident and I reviewed and discussed the case with the resident and agree with the resident's findings and plans of care as documented above Planned Discharge Date 02/27/25 DS: Providers Provider Date of admission: 02/20/25 02:06 Primary care physician: Mike Cisse MD Admitting Provider: Cody Castillo MD Attending Provider on Admission: Qamar Solis MD Consults: 02/20/25 02:03 Consult to General Surgery Stat Comment: Cholecystitis Consulting Provider: Kiana Brewer 02/20/25 02:18 Referral Wound Care Routine Comment: 02/20/25 10:48 Consult to Cardiology Routine Comment: Consulting Provider: Neo Witt Instructions: Afib w/ rvr on admission, started Diltiazem drip 02/21/25 10:42 Referral Nutritional Services Routine Comment: Wounds Referral OP Wound Healing Dept Routine Comment: Sacral unstageable 02/21/25 14:26 Referral Physical Therapy Urgent Comment: Physician Instructions: Instructions: patient would benefit from home health 02/22/25 08:42 Consult to Infectious Diseases Routine Comment: Consulting Provider: Rene Pierce 02/25/25 15:48 Referral Hospice Stat Comment: Attending Provider on DC: Bryan Barton MD Discharging Provider: Bryan Barton MD DS: Diagnosis Problem List Completed Was Problem List Reviewed/Reconciled?: Yes Hospital Course Hospital Course Hospital course: Summary: Patient is an 84-year-old female with a past medical history of hypertension, hyperlipidemia, atrial fibrillation (Eliquis), Pulmonary HTN, hypothyroidism, SARAH, and anemia of chornic disease who was admitted on for sepsis secondary to pressure induced deep pressure ulcer, stage IV, corticol bone destruction, 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 ER Course: In the ED: Blood pressure 98/47, heart rate 118, saturating 97-100% on 3 L nasal cannula. Labs showed WBC count 13.4, D-dimer 3200, ABG showed pH of 7.41, pCO2 36, pO2 72 L. Sodium 135, potassium 3.7, chloride 102, carbon dioxide 23.1, BUN 11, creatinine 0.6, glucose 115, osmolality 270, lactic acid 2.4 down trended to 1.7, magnesium 1.5, T. bili 1.8, AST 121, ALT 54, alkaline phosphatase 78, C- reactive protein 6.3, BNP 254, TSH 10.97, Pro-Peter 0.91. UA showed 4+ bacteria, cultures were sent. EKG showed A-fib with RVR. Abdomen pelvis showed CBD 14 mm, soft tissue defect posterior to the lower sacrum and coccyx with cortical bone destruction involving the coccygeal segments. Chest CTA was negative for PE, showed bibasilar pneumonia. Head CT was negative for acute pathology. Abdominal ultrasound showed cholelithiasis with gallbladder wall thickening, mild to dilated CBD, recommended MRCP. Dr. Nguyen, general surgeon was consulted, agreed to consult, low suspicion for acute choledocholithiasis. Hospital Course During hospital course, patient was started on broad-spectrum antibiotics tr eated with ceftriaxone 2 g and vancomycin given cortical bone destruction noted on CT abdomen pelvis on 02/19/2025 showing soft tissue defect posterior to the lower scrotum and cocci with cortical bone destruction involving the coccygeal segments. MRI pelvis 02/22/2025 being a poor study as patient continued to move during MRI. Infectious disease consulted recommending ceftriaxone 2 g IV and doxycycline through April 04. IR consulted for PICC line placement which failed patient be going home with a Central Tunnel which should be removed after after completion of IV antibiotics. During hospitalizations patient developed atrial fibrillation with RVR, already on Eliquis, and digoxin added per recommendations of cardiology. Patient has remained rate controlled on digoxin. Patient noted to have pneumonia with effusion likely secondary to community-acquired. No thoracentesis warranted given not enough fluid to proceed to drainage. Dual antibiotic coverage with ceftriaxone. Infectious disease specialist Dr Pierce was consulted who recommended IV ceftriaxone and doxycycline, to be continued through April 04. Unfortunately PICC line could not be placed by IR despite multiple attempts, tunneled central catheter was recommended. After goals of care discussion with the family they decided against any aggressive procedures, refused tunneled catheter placement and transitioning to hospice upon discharge. After shared decision making the plan was made to discharge patient on p.o. antibiotics doxycycline and cephalexin to be continued through April 04 to complete treatment of 6 weeks. The patient is tolerating p.o. medications at the time of discharge, mental status at baseline, vitals are stable. 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 #Restrictive Cardiomyopathy #Severe Pulmonary HTN #History Hypertension #Hyperlipidemia #History of hypothyoidism, s/p thyroidectomy #Cholelithiasis #History of Anxiety #Asymtomatic Bacteruiria #Electrolyte abnormalities, hypokalemia?adequately replaced with IV and p.o. potassium replacement. Patient evaluated and examined at the bedside, plan of care discussed with rest of the team including my attending physician, except as noted. Quresh PGY2 Status at Discharge Overall status at discharge: patient is progressing back to baseline Time Spent with Patient Time attestation: Total time spent providing and/or coordinating discharge services: Time spent: Greater than 30 minutes Exam Vital Signs Temp Pulse Resp BP Pulse Ox O2 Del Method O2 Flow Rate 97.8 F 85 18 130/79 96 Nasal Cannula 1 02/27/25 15:46 02/27/25 16:00 02/27/25 15:46 02/27/25 15:46 02/27/25 15:46 02/27/25 15:46 02/27/25 15:46 Narrative Exam General Appearance: Alert & Oriented X2, well-nourished female who is lying in bed in mild discomfort when patient was rolled over to appreciate ulcer. Ulcer is foul smelling and appears to a purulent discharge. HEENT: Skull symmetrical and atraumatic. Conjunctivae pale pink and moist. Pupils equal, round, reactive to light and accommodation (PERRL). External ear without lesion or discharge. Straight, nares patient, mucosa pink, no discharge. No thyroid nodule appreciated. No cervical lymphadenopathy. Cardio: Normal Rate and Rhythm with S1 and S2 heart sounds. No murmurs or extra heart sounds auscultated. No bruits on carotid auscultation. No peripheral edema or cyanosis. Lungs: Symmetric with good expansion. Chest and back non-tender. Breath sounds vesicular with rhonchi Abdomen: Non-tender, Non-distended, Normal Reactive Bowel Sounds, Negative Chilel's sign. Neuro: Yes Alert, cooperative, oriented to person, place, and time. Speech clear. CN grossly intact. Upper motor strength 5/5 and Lower motor strength 3/5. Sensation intact. Discharge Plan Plan Patient Disposition: Xfer Skilled Nsg Fac (SNF) Disposition Comment: Hospice Facility Patient condition on transfer: Stable Care Plan Goals: Instructions: -Please take oral antibiotics Cephalexin 500 mg three times daily and doxycline 100 mg twice daily through April 04 to complete total of 6 weeks. Patient's family decided against invasive process and will go home with hospice. -Please follow weekly CBC, Renal Panel, ESR and follow with primary care as outpatient , until the duration of antibiotics. -Digoxin 0.125 oral daily for atrial fibrillation. Please follow up with Dr. Witt, your metal model maker, for dose adjustments and Digoxin levels. -Please follow up with your primary care provider within one week of discharge and see if you need to resume Furosemide and PCP to re-evaluate behavioral health medications. -Please do daily weight checks and monitor of increase water retention -If your symptoms worsen,please seek immediate medical attention and return to your nearest emergency room -If you do not have a primary care provider, you may follow up at the [facility] at [address], [place] [address], Prescriptions/Referrals Prescriptions/Med Rec: New ascorbic acid (vitamin C) 500 mg tablet 500 mg PO BID 8 Days Qty: 16 0RF digoxin 125 mcg (0.125 mg) tablet 125 mcg PO QDAY 30 Days Qty: 30 0RF mirtazapine 15 mg tablet 15 mg PO QDAY 30 Days Qty: 30 0RF zinc sulfate 50 mg zinc (220 mg) capsule 50 mg PO QDAY 8 Days Qty: 8 0RF doxycycline hyclate 100 mg capsule 100 mg PO BID 37 Days Qty: 74 0RF cephalexin 500 mg capsule 500 mg PO TID 37 Days Qty: 111 0RF Continued levothyroxine 100 mcg Tablet 100 mcg PO QDAY Qty: 0 pantoprazole 40 mg Tablet,Delayed Release (Dr/Ec) 40 mg PO QDAY loratadine 10 mg Tablet 10 mg PO QDAY Eliquis 2.5 mg tablet 2.5 mg PO BID hydrocodone-acetaminophen 10-325 mg tablet 1 tab PO QID PRN (Reason: Pain) buspirone 7.5 mg tablet 7.5 mg PO TID sertraline 50 mg tablet 150 mg PO TID budesonide-formoterol [Symbicort] 160-4.5 mcg/actuation HFA aerosol inhaler 2 inh INHALATION BID cholecalciferol (vitamin D3) [Vitamin D3] 125 mcg (5,000 unit) Tablet 125 mcg PO QDAY pravastatin 40 mg tablet 40 mg PO HS ergocalciferol (vitamin D2) 1,250 mcg (50,000 unit) capsule 1,250 mcg PO .once a week Patient Comments: TAKE ONE CAPSULE BY MOUTH every friday VITAMIN trazodone 50 mg tablet 50 mg PO HS PRN (Reason: sleep) Patient Comments: TAKE ONE TABLET BY MOUTH AT BEDTIME NEEDED FOR SLEEP raloxifene 60 mg tablet 60 mg PO DAILY Patient Comments: TAKE ONE TABLET BY MOUTH EVERY DAY calcium carbonate-vitamin D3 600 mg-10 mcg (400 unit) tablet 1 tab PO BID Patient Comments: TAKE ONE TABLET BY MOUTH TWICE DAILY VITAMIN Held doxepin 25 mg capsule 25 mg PO HS Hold Instructions: Please hold until you follow your primary care provider doxepin 10 mg capsule 10 mg PO HS Hold Instructions: Please hold until you follow your primary care provider Patient Comments: TAKE ONE CAPSULE BY MOUTH AT BEDTIME Discontinued clonidine HCl 0.1 mg tablet 0.1 mg PO BID Qty: 60 0RF clonidine HCl 0.2 mg tablet 0.2 mg PO BID furosemide [Lasix] 20 mg tablet 20 mg PO QDAY Qty: 30 0RF mirtazapine 30 mg tablet 30 mg PO HS Patient Comments: TAKE ONE TABLET BY MOUTH AT BEDTIME Referrals: Mike Cisse MD [Primary Care Provider] - Patient/Caregiver Discharge Instructions Education Materials: Thoracentesis Dc, AFL/Afib, Osteomyelitis Dc Print Language: Qatari Stand Alone Forms: [facility] Award Info., Patient Portal Info Letter Discharge Order Discharge Orders: Discharge (Routine); Ordered 02/26/25 Ordered By: Ena Wolff Quality Discharge Quality Measures VTE prophylaxis
== END 2025-02-27 17:10 | disposition skilled nursing facility (03) | DRG 871 ==
LOC: SERX 02-20 01:32 → SERHOLD 02-20 02:28 → S2NX 02-20 18:42
PROVIDERS: Nurse Practitioner Primary Care; Admitting Provider Student in an Organized Health Care Education/Training Program; Emergency Provider Emergency Medicine; PCP Family Medicine; Visit Provider Student in an Organized Health Care Education/Training Program
DX: A41.51 Sepsis due to Escherichia coli [E. coli] (principal); J18.9 Pneumonia, unspecified organism; L89.154 Pressure ulcer of sacral region, stage 4; J96.01 Acute respiratory failure with hypoxia; I48.20 Chronic atrial fibrillation, unspecified; I42.5 Other restrictive cardiomyopathy; K80.60 Calculus of gallbladder and bile duct with cholecystitis, unspecified, without obstruction; E87.20 Acidosis, unspecified; N39.0 Urinary tract infection, site not specified; M46.28 Osteomyelitis of vertebra, sacral and sacrococcygeal region; J90 Pleural effusion, not elsewhere classified; F41.9 Anxiety disorder, unspecified; I10 Essential (primary) hypertension; M19.90 Unspecified osteoarthritis, unspecified site; E78.5 Hyperlipidemia, unspecified; I27.20 Pulmonary hypertension, unspecified; L08.9 Local infection of the skin and subcutaneous tissue, unspecified; M89.8X8 Other specified disorders of bone, other site; E89.0 Postprocedural hypothyroidism; E83.42 Hypomagnesemia; R16.0 Hepatomegaly, not elsewhere classified; F32.A Depression, unspecified; D63.8 Anemia in other chronic diseases classified elsewhere; I07.1 Rheumatic tricuspid insufficiency; K59.00 Constipation, unspecified; I35.1 Nonrheumatic aortic (valve) insufficiency; I70.0 Atherosclerosis of aorta; Z66 Do not resuscitate; Z79.01 Long term (current) use of anticoagulants; Z63.4 Disappearance and death of family member; Z96.643 Presence of artificial hip joint, bilateral; Z74.01 Bed confinement status; Z79.899 Other long term (current) drug therapy; Z53.29 Procedure and treatment not carried out because of patient's decision for other reasons
CPT/HCPCS: 36415; 36600; 70450; 71045; 71275; 72195; 74018; 74177; 76705; 76999; 80053; 80061; 80162; 80202; 81001; 82803; 83605; 83735; 83880; 84100; 84134; 84145; 84439; 84443; 84484; 85025; 85379; 85610; 85652; 85730; 86140; 86331; 86635; 87040; 87077; 87086; 87186; 87400; 87811; 93005; 93306; 96365; 96366; 96367; 96368; 97161; 99285; A4649; C1751; C1894; J0456; J0696; J1642; J3370; J3475; J3480; J3490; J7030; J7040; J7050; Q9967; S8037; 74181; A9270